=== PATIENT | female | born 1940 | race Caucasian/White ===

== ENCOUNTER → 2017-03-14 | Outpatient (CLI) | payer MEDICARE, BC ==
--- NOTE | 2017-03-14 15:59 | BD ---
EXAMINATION TYPE: MG DEXA axial skeleton. DATE OF EXAM: 03/14/2017 COMPARISON: NONE CLINICAL HISTORY: 76-year-old female osteopenia Height: 61.5 Weight: 205.3 FRAX RISK QUESTIONS: Alcohol (3 or more units per day): NO Family History (Parent hip fracture): NO Glucocorticoids (More than 3mos): NO (Ex: prednisone, prednisolone, methylprednisolone, dexamethasone, and hydrocortisone). History of Fracture in Adulthood: NO Secondary Osteoporosis: 1. Type 1 Diabetes: NO 2. Hyperthyroidism: NO 3. Menopause before 45: YES 4. Malnutrition: NO 5. Chronic liver disease: NO Rheumatoid Arthritis: NO Current Tobacco Use: NO RISK FACTORS HISTORY OF: Hip Fracture (Right/Left): NO Spine Fracture: NO History of Wrist Fracture: NO Surgery to Spine/Hip(right/left)/Wrist (right/left): NO Family History of Osteoporosis: YES Active: NO Diet low in dairy products/other sources of calcium: NO Postmenopausal woman: AGE 47 Lost more than 2 inches in height since high school: NO Frequent falls: NO Poor Health: NO Hyperparathyroidism: NO Adrenal Insufficiency: NO MEDICATIONS: SCANNED INTO PACS Thyroid Medications: LEVOTHYROXINE Additional History: EXAM MEASUREMENTS: Bone mineral densitometry was performed using the [employer]. Bone mineral density as measured about the Lumbar spine is: ----- L1-L4(G/cm2): 1.097 T Score Values are as follows: ----- L2: -0.7 ----- L3: -0.6 ----- L4: -1.0 ----- L1-L4: -0.7 Bone mineral density BASELINE Bone mineral density about the R hip (g/cm2): 0.931 Bone mineral density about the L hip (g/cm2): 0.996 T Score values are as follows: -----R Neck: -0.8 -----L Neck: -0.3 -----R Total: 0.2 -----L Total: 0.3 Bone mineral density BASELINE IMPRESSION: Normal (Values between +1 and -1 indicate normal bone mass). Consider repeating this study in 5 year s or sooner if there is some new clinical indication. NOTE: T-SCORE=SD OF THE YOUNG ADULT MEAN.
== END | disposition home or self-care (01) ==
LOC: RADBDWWP 08:10
PROVIDERS: ATTEND Family Medicine
DX: Z13.820 Encounter for screening for osteoporosis (principal)
CPT/HCPCS: 77080

== ENCOUNTER → 2017-07-09 | Outpatient (CLI) | payer MEDICARE, BC ==
--- NOTE | 2017-07-09 14:37 | XR ---
EXAMINATION TYPE: XR chest 2V DATE OF EXAM: 07/09/2017 COMPARISON: NONE HISTORY: Asthma and COPD TECHNIQUE: Frontal and lateral views of the chest are obtained. FINDINGS: There is no focal air space opacity, pleural effusion, or pneumothorax seen. The cardiac silhouette size is within normal limits. Hyperinflation of the lungs be indicative of COPD. There is blunting of the right ankle, eventration of the hemidiaphragm is noted. There is a spinal curvature. The osseous structures are intact. IMPRESSION: No acute cardiopulmonary process.
== END | disposition home or self-care (01) ==
LOC: RADXRMAIN 11:28
PROVIDERS: ATTEND Allergy & Immunology Allergy
DX: J44.9 Chronic obstructive pulmonary disease, unspecified (principal)
CPT/HCPCS: 71020; 82103

== ENCOUNTER → 2017-07-15 | Outpatient (CLI) | payer MEDICARE, BC ==
--- NOTE | 2017-07-15 14:04 | MM ---
Reason for exam: additional evaluation requested from prior study. Last mammogram was performed 1 year and 1 month ago. History: Patient is postmenopausal and history of other cancer. Family history of breast cancer in daughter at age 30. Benign left mammotome panel of the left breast, March 09, 2013. Benign excisional biopsy of the right breast, 2001. Took hormonal contraceptives for 10 years. Took estrogen for 15 years. Physical Findings: Nurse did not find any significant physical abnormalities on exam. MG 3D Diag Mammo W/Cad DARA Bilateral CC and MLO view(s) were taken. Prior study comparison: June 05, 2016, bilateral MG 3d screening mammo w/cad. April 26, 2015, bilateral MG diagnostic mammo w CAD DARA. There are scattered fibroglandular densities. Finding: There are typically benign dystrophic, round, linear, grouped and diffuse/scattered calcifications in both breasts. Previous mammotome biopsy in the left breast. There is a chronic nodularity bilaterally. There is no discrete abnormality. These results were verbally communicated with the patient and result sheet given to the patient on 07/15/17. ASSESSMENT: Benign, BI-RAD 2 RECOMMENDATION: Routine screening mammogram of both breasts in 1 year.
== END | disposition home or self-care (01) ==
LOC: RADMAMWWP 13:07
PROVIDERS: ATTEND Family Medicine
DX: R92.8 Other abnormal and inconclusive findings on diagnostic imaging of breast (principal)
CPT/HCPCS: G0204; G0279

== ENCOUNTER → 2018-04-23 | Outpatient (CLI) | payer MEDICARE, BC ==
--- NOTE | 2018-04-23 17:57 | CONS ---
CONSULTATION DATE OF SERVICE: 04/23/2018 77-year-old lady has been evaluated in Sleep Center for obstructive sleep apnea- hypopnea syndrome. HISTORY OF PRESENT ILLNESS/SLEEP-WAKE EVALUATION: Patient has been diagnosed with obstructive sleep apnea in around 2002 at [facility] [place] in [place]. Since that time, she is on treatment with CPAP. She never repeat sleep study since that time, although she has significantly changed her weight down from about at least 230 pounds to 187 pounds. The patient continued to use her equipment every night but recently started to feel that she has more awakenings presently than before. She wakes up about 3 times and once, has nocturia. Her sleep schedule from about midnight until 7:30 or 8:00 a.m. No problem with falling asleep, although she has TV set in the bedroom. No history of hypnagogic hallucinations, sleep paralysis or cataplexy. [place] Sleepiness Scale is 4. PAST MEDICAL HISTORY: Positive for hypertension, cardiac arrhythmia, hypothyroidism, asthma. PAST SURGICAL HISTORY: Total hysterectomy, tonsillectomy, adenoidectomy, surgical treatment of squamous cell carcinoma of the skin, diabetes mellitus type 2. MEDICATIONS: Diltiazem, spironolactone, hydrochlorothiazide levothyroxine, Crestor, Singulair, Farxiga, Dulera inhaler, Ventolin, vitamin supplement, calcium supplement, ibuprofen. SOCIAL HISTORY: Negative for smoking or using alcohol. FAMILY HISTORY: Hypertension, stroke, heart problems, arthritis, asthma, cancer, bronchitis, diabetes, acid reflux. REVIEW OF SYSTEMS: Awakenings from sleep. PHYSICAL EXAM: GENERAL lady without distress. VITAL SIGNS BP 104/72, HR 78, RR 16, height 5 feet 3/4 inch, weight 187.6, BMI 35.8, temperature 98.1, oxygen saturation on room air 93%. HEENT PERRLA, EOMI, evaluation of oropharynx showed extremely low position of soft palate. Mallampati IV. Retrognathia 5 mm, high position of soft palate, small low jaw. NECK Supple, no JVD. Thyroid is not palpable. LUNGS Clear to percussion and to auscultation. Good air exchange. No wheezing or rhonchi. HEART S1, S2 regular. No murmurs, gallops, or rubs. ABDOMEN Obese. Soft and nontender. Bowel sounds are present. No organomegaly appreciated. EXTREMITIES No clubbing or cyanosis. AGILE PROJECT MANAGER Awake, alert, and oriented X3. Cranial nerves 2 to 7 intact. There is no fasciculation or atrophy. noted. No focal deficits observed. IMPRESSION: 1. Obstructive sleep apnea-hypopnea syndrome for 15 years. The patient continued to have treatment with his CPAP. Recently developed awakenings from sleep while on CPAP, extremely low position of soft palate, Mallampati IV, significant restriction of nasal breathing bilaterally, obstructive sleep apnea-hypopnea syndrome. 2. Obesity, BMI of 35.8. 3. Nasal septum deviation, restriction of nasal breathing. 4. History of cardiac arrhythmia. 5. History of hypertension. 6. Hypothyroidism. 7. Asthma. 8. Status post total hysterectomy. 9. Status post tonsillectomy and adenoidectomy. 10.Diabetes mellitus type 2. 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 PLAN: 1. Repeat CPAP titration for evaluation of effective CPAP pressure at the present time. Patient lost about 50 pounds of weight since previous titration which was done 15 years ago and she developed awakenings from sleep recently. 2. Watching and losing weight. 3. Sleep hygiene with regular time in bed for at least 8 hours. 4. Prescription for all necessary CPAP supplies. 5. The patient's CPAP unit will be replaced. 6. No driving if feeling sleepiness. Thank you very much for referring this patient for consultation. Sincerely, Germain Wasserman MD, PhD, FAASM Diplomat of [place] [employer] [place] [employer] Artillery Specialist of [facility] [place] MMODL / IJN: [id number] /
== END | disposition home or self-care (01) ==
LOC: SLEEP 13:46
PROVIDERS: ATTEND Internal Medicine
DX: G47.33 Obstructive sleep apnea (adult) (pediatric) (principal); E66.9 Obesity, unspecified; J34.2 Deviated nasal septum; I49.9 Cardiac arrhythmia, unspecified; I10 Essential (primary) hypertension; E03.9 Hypothyroidism, unspecified; J45.909 Unspecified asthma, uncomplicated; E11.9 Type 2 diabetes mellitus without complications; Z90.89 Acquired absence of other organs; Z90.710 Acquired absence of both cervix and uterus; Z68.35 Body mass index [BMI] 35.0-35.9, adult; Z85.820 Personal history of malignant melanoma of skin; Z99.89 Dependence on other enabling machines and devices; Z79.899 Other long term (current) drug therapy; Z79.1 Long term (current) use of non-steroidal anti-inflammatories (NSAID)
CPT/HCPCS: 99211

== ENCOUNTER → 2018-07-21 | Outpatient (CLI) | payer MEDICARE, BC ==
--- NOTE | 2018-07-27 10:11 | MM ---
Reason for exam: screening (asymptomatic). Last mammogram was performed 1 year ago. History: Patient is postmenopausal and history of other cancer. Family history of breast cancer in daughter at age 30. Benign left mammotome panel of the left breast, March 09, 2013. Benign excisional biopsy of the right breast, 2001. Took hormonal contraceptives for 10 years. Took estrogen for 15 years. Physical Findings: A clinical breast exam by your physician is recommended on an annual basis and results should be correlated with mammographic findings. MG 3D Screening Mammo W/Cad Bilateral CC and MLO view(s) were taken. Prior study comparison: July 15, 2017, bilateral MG 3d diag mammo w/cad DARA. June 05, 2016, bilateral MG 3d screening mammo w/cad. There are scattered fibroglandular densities. Previous mammotome biopsy in the left breast. There is chronic nodularity bilaterally. Stable bilateral areas of grouped calcifications. No significant changes when compared with prior studies. ASSESSMENT: Benign, BI-RAD 2 RECOMMENDATION: Routine screening mammogram of both breasts in 1 year.
== END | disposition home or self-care (01) ==
LOC: RADMAMWWP 11:06
PROVIDERS: ATTEND Family Medicine
DX: Z12.31 Encounter for screening mammogram for malignant neoplasm of breast (principal)
CPT/HCPCS: 77063; 77067

== ENCOUNTER → 2018-10-15 | Outpatient (CLI) | payer MEDICARE, BC ==
--- NOTE | 2018-10-15 17:44 | PN ---
PROGRESS NOTE DATE OF SERVICE: 10/15/2018 This patient is a 77-year-old lady who has been followed in Sleep Center for treatment of obstructive sleep apnea-hypopnea syndrome. Recently patient had a CPAP titration which went very well. She had no abnormal respiratory events during titration. After that, I prescribed for the patient an automatic machine with a range of pressure from 5 to 10 cm of water. Today is her first visit after she received her CPAP unit. The patient is able to use her CPAP equipment every night for the whole night without any significant problem except recently some problem with humidification. No snoring with the machine. [place] Sleepiness Scale is 4, which is normal. I checked her CPAP unit. Usage is 100% of the nights for more than 4 hours. Average usage is 7.4 hours. Leak is 19 L/minute, which is borderline. With a pressure of 5 to 10 cm of water, average pressure is 10 cm of water. Apnea-hypopnea index reading is only 0.6, which is absolutely normal. Heating is on auto regimen. MEDICATIONS: 1. Diltiazem. 2. Spironolactone. 3. Hydrochlorothiazide. 4. Levothyroxine. 5. Crestor. 6. Singulair. 7. Dulera. 8. Ventolin. 9. Calcium supplement. 10.Vitamins. 11.Ibuprofen. 12.Glipizide. PHYSICAL EXAMINATION: GENERAL: A pleasant patient in no distress. VITAL SIGNS: BP 145/76, HR 73, RR 18, weight 200.6, temperature 97.7, oxygen saturation at room air 93%. HEENT: PERRLA, EOMI. Evaluation of oropharynx showed tongue protrudes midline. Low position of soft palate. Mallampati IV. NECK: Supple. No JVD. Thyroid is not palpable. LUNGS: Clear to percussion and to auscultation. Good air exchange. No wheezing or rhonchi. HEART: S1, S2 regular. No murmurs, gallops or rubs. ABDOMEN: Obese. EXTREMITIES: No clubbing or cyanosis. MID TEACHER: Awake, alert, and oriented X3. Cranial nerves 2 to 7 intact. There is no fasciculation or atrophy. noted. No focal deficits observed. IMPRESSION: 1. Obstructive sleep apnea-hypopnea syndrome. Patient demonstrated 100% compliance with treatment, benefitting from treatment. 2. Obesity. 3. Hypertension. 4. Hypothyroidism. 5. Asthma. 6. Diabetes mellitus. 7. History of nasal septum deviation. PLAN: 1. Patient will continue to use CPAP equipment every night with the same regimen. 2. Losing weight. 3. Sleep hygiene with regular time in bed for at least 8 hours. 4. No driving if feeling any sleepiness. Thank you very much for allowing me to participate in the management of your patient. Sincerely, Germain Wasserman MD, PhD, FAASM Diplomat of [place] [employer] [place] [employer] [place] Chief [facility] [place] MMODL / IJN: [id number] /
== END ==
LOC: SLEEP 14:53
PROVIDERS: ATTEND Internal Medicine
DX: G47.33 Obstructive sleep apnea (adult) (pediatric) (principal); E66.9 Obesity, unspecified; I10 Essential (primary) hypertension; E03.9 Hypothyroidism, unspecified; J45.909 Unspecified asthma, uncomplicated; E11.9 Type 2 diabetes mellitus without complications; Z87.39 Personal history of other diseases of the musculoskeletal system and connective tissue; Z99.89 Dependence on other enabling machines and devices; Z79.899 Other long term (current) drug therapy; Z79.1 Long term (current) use of non-steroidal anti-inflammatories (NSAID); Z79.84 Long term (current) use of oral hypoglycemic drugs

== ENCOUNTER → 2019-09-21 | Outpatient (CLI) | payer MEDICARE, BC ==
--- NOTE | 2019-09-22 11:12 | MM ---
Reason for exam: screening (asymptomatic). Last mammogram was performed 1 year and 2 months ago. History: Patient is postmenopausal and history of other cancer. Family history of breast cancer in daughter at age 30. Benign left mammotome panel of the left breast, March 09, 2013. Benign excisional biopsy of the right breast, 2001. Took hormonal contraceptives for 10 years. Took estrogen for 15 years. Physical Findings: A clinical breast exam by your physician is recommended on an annual basis and results should be correlated with mammographic findings. MG 3D Screening Mammo W/Cad Bilateral CC and MLO view(s) were taken. Prior study comparison: July 21, 2018, bilateral MG 3d screening mammo w/cad. July 15, 2017, bilateral MG 3d diag mammo w/cad DARA. The breast tissue is heterogeneously dense. This may lower the sensitivity of mammography. Finding: There is a 5 mm equal density (isodense), oval mass in the subareolar position of the right breast. There are benign appearing calcifications. Previous mammotome biopsy in the left breast. There is a chronic nodularity bilaterally. There are grouped calcifications left upper inner quadrant. ASSESSMENT: Incomplete: need additional imaging evaluation, BI-RAD 0 RECOMMENDATION: Special view mammogram of both breasts. If lesion persists on supplemental views, image directed ultrasound is recommended. [facility] will attempt to contact patient to return for supplemental views and ultrasound if indicated.
== END | disposition home or self-care (01) ==
LOC: RADMAMWWP 13:31
PROVIDERS: ATTEND Family Medicine
DX: Z12.31 Encounter for screening mammogram for malignant neoplasm of breast (principal)
CPT/HCPCS: 77063; 77067

== ENCOUNTER → 2019-10-04 | Outpatient (CLI) | payer MEDICARE, BC ==
--- NOTE | 2019-10-04 15:02 | MM ---
Reason for exam: additional evaluation requested from abnormal screening. Last mammogram was performed less than 1 month ago. History: Patient is postmenopausal and history of other cancer. Family history of breast cancer in daughter at age 30. Benign left mammotome panel of the left breast, March 09, 2013. Benign excisional biopsy of the right breast, 2001. Took hormonal contraceptives for 10 years. Took estrogen for 15 years. Physical Findings: Nurse did not find any significant physical abnormalities on exam. MG 3D Work Up W/Cad DARA Bilateral ML view(s) were taken. Spot compression CC and spot compression MLO view(s) were taken of the right breast. CC with magnification and ML with magnification view(s) were taken of the left breast. Prior study comparison: September 21, 2019, bilateral MG 3d screening mammo w/cad. July 21, 2018, bilateral MG 3d screening mammo w/cad. The breast tissue is heterogeneously dense. This may lower the sensitivity of mammography. There is a persistent 4mm right upper inner quadrant mass 3-5cm from nipple, slightly increased in size from the priors, ultrasound will be performed. There is a 4mm group of left upper inner quadrant calcifications, slightly increased from priors however multiple other similar appearing coarse heterogenous calcifications are also seen on the left. These results were verbally communicated with the patient and result sheet given to the patient on 10/04/19. ASSESSMENT: Incomplete: need additional imaging evaluation, BI-RAD 0 RECOMMENDATION: Ultrasound of the right breast. (upper inner quadrant)
--- NOTE | 2019-10-04 15:04 | USB ---
Reason for exam: additional evaluation requested from abnormal screening. History: Patient is postmenopausal and history of other cancer. Family history of breast cancer in daughter at age 30. Benign left mammotome panel of the left breast, March 09, 2013. Benign excisional biopsy of the right breast, 2001. Took hormonal contraceptives for 10 years. Took estrogen for 15 years. US Breast Workup Limited RT Right limited breast ultrasound including focal area of concern, retroareolar and axilla demonstrates a 5 x 4mm lobular, cystic lesion at 1 o'clock, correlates with mammographic finding, a 12mm lymph node at the axilla and a 11mm lymph node at the axilla, maintain fatty edith. These results were verbally communicated with the patient and result sheet given to the patient on 10/04/19. ASSESSMENT: Benign, BI-RAD 2 RECOMMENDATION: Return to routine screening mammogram schedule for both breasts.
== END | disposition home or self-care (01) ==
LOC: RADMAMWWP 13:29
PROVIDERS: ATTEND Family Medicine
DX: R92.8 Other abnormal and inconclusive findings on diagnostic imaging of breast (principal)
CPT/HCPCS: 77066; 76642; G0279; 77062

== ENCOUNTER → 2020-03-02 | Outpatient (CLI) | payer MEDICARE, BC ==
--- NOTE | 2020-03-03 07:57 | SFUN ---
SLEEP CENTER FOLLOW UP NOTE DATE OF SERVICE: 03/02/2020 HISTORY OF PRESENT ILLNESS: This is a 79-year-old lady who has been followed in the Sleep Center for treatment of obstructive sleep apnea-hypopnea syndrome. The patient successfully continues to use her CPAP equipment every night for the whole night. No snoring with the machine. No problem with the mask. I checked the CPAP unit. CPAP pressure in the range from 5-10 cm of water. The patient is using it 30/30 nights for more than 4 hours with average usage 6.9 hours per night. Leak is up to 20 L/minute which is acceptable. Apnea-hypopnea index 0.6, which is absolutely normal. Sometimes patient feels dryness in her mouth and we discussed a few options to change humidity level. MEDICATIONS: Symbicort, Ventolin, Januvia, spironolactone, levothyroxine, lisinopril, diltiazem, rosuvastatin, montelukast, Tylenol. PHYSICAL EXAM: GENERAL: lady without distress. VITAL SIGNS: BP 124/73, HR 80, RR 16, height 5 feet 1 inch, weight 207, body mass index 39.1, temperature 98.6, oxygen saturation at room air 94%. HEENT: PERRLA, EOMI, evaluation of oropharynx showed extremely low position of soft palate, Mallampati 4. NECK: Supple, no JVD. Thyroid is not palpable. LUNGS: Clear to percussion and to auscultation. Good air exchange. No wheezing or rhonchi. HEART: S1, S2 regular. No murmurs, gallops, or rubs. ABDOMEN: Soft and nontender. Bowel sounds are present. No organomegaly appreciated. EXTREMITIES: No clubbing or cyanosis. THREADING MACHINE TENDER: Awake, alert, and oriented X3. Cranial nerves 2 to 7 intact. There is no fasciculation or atrophy. noted. No focal deficits observed. IMPRESSION: 1. Obstructive sleep apnea-hypopnea syndrome. Patient demonstrated 100% compliance with treatment, benefitting from treatment. 2. Obesity. 3. Hypothyroidism. 4. Asthma. 5. Diabetes mellitus. 6. Nasal septum deviation. PLAN: 1. Patient will continue to use her CPAP equipment every night for the whole night. 2. Watching and losing weight. 3. Sleep hygiene with regular time in bed for at least 8 hours. 4. No driving if feeling any sleepiness. 5. Use chinstrap to prevent dryness in the nose. Thank you very much for allowing me to participate in the management of your patient. MMODL / IJN: [id number] /
== END | disposition home or self-care (01) ==
LOC: SLEEP 15:28
PROVIDERS: ATTEND Internal Medicine
DX: G47.33 Obstructive sleep apnea (adult) (pediatric) (principal); Z53.8 Procedure and treatment not carried out for other reasons

== ENCOUNTER → 2020-09-07 | Outpatient (CLI) | payer MEDICARE, BC ==
--- NOTE | 2020-09-07 20:31 | SFUN ---
SLEEP CENTER FOLLOW UP NOTE DATE OF SERVICE: 09/07/2020 79-year-old lady has been followed in Sleep Center for treatment of obstructive sleep apnea-hypopnea syndrome. Patient continued to use her CPAP equipment every night for the whole night. No significant problems with the mask fitting, pressure humidification. Patient received her new CPAP unit recently. I checked her CPAP machine. Range of the pressure 5-10, average pressure 10 cm of water. Usage is 30 out of 30 nights more than 4 hours with average 7.4 hours per night. Leak is 26 L/minute which is slightly high. At the same time, apnea-hypopnea index only 1.0, which is totally normal. [place] Sleepiness Scale today is 4. MEDICATIONS: Symbicort 2 puffs twice a day. Ventolin 2 puffs as needed, Januvia 50 mg once a day. Spironolactone, hydrochlorothiazide 25 mg, 2 tablets once a day. Levothyroxine 112 mcg once a day, lisinopril 2.5 mg once a day, Rosuvastatin 10 mg once a day. Montelukast 10 mg once a day. PHYSICAL EXAM: Patient in no distress. BP 116/74, HR 77, RR 15, height 5 feet 7.5 inches, weight 206.2 pounds. BMI 39.5, temperature 97.9. Oxygen saturation at room air 93%. Oropharynx extremely low position of soft palate. Mallampati 4. NECK: Supple, no JVD. Thyroid is not palpable. LUNGS: Clear to percussion and to auscultation. Good air exchange. No wheezing or rhonchi. HEART: S1, S2 regular. No murmurs, gallops, or rubs. ABDOMEN: Obese. Soft and nontender. Bowel sounds are present. No organomegaly appreciated. EXTREMITIES: No clubbing or cyanosis. ANALYTICAL SCIENCES DIRECTOR: Awake, alert, and oriented X3. Cranial nerves 2 to 7 intact. There is no fasciculation or atrophy. noted. No focal deficits observed. IMPRESSION: 1. Obstructive sleep apnea-hypopnea syndrome. Patient demonstrated 100% compliance with treatment benefitting from treatment. 2. Obesity. 3. Hypothyroidism. 4. Asthma. 5. Diabetes mellitus. 6. Nasal septum deviation. 7. History of cardiac arrhythmia in the past. PLAN: 1. Prescription for all necessary CPAP supplies, including mask, tube, filters. 2. Patient will continue to use PAP equipment every night for the whole night. 3. Sleep hygiene with regular time in bed for at least 7-1/2 to 8 hours. 4. Precautions related to driving. No driving if feeling sleepiness. 5. I will maintain all necessary prescription for PAP supplies including mask, tube, filters. 6. Watching weight. 7. No driving if feeling sleepiness. 8. Follow-up visit in 6 months or earlier if patient has any problems. Thank you very much for allowing me to participate in management of your patient. Sincerely, Germain Wasserman MD, PhD, FAASM Diplomat of [place] Board of Medical Specialties [employer] [place] Board of Internal Medicine [facility]able [facility] [place] MMODL / KIMBERLYN: [id number] /
== END | disposition home or self-care (01) ==
LOC: SLEEP 13:56
PROVIDERS: ATTEND Internal Medicine
DX: G47.33 Obstructive sleep apnea (adult) (pediatric) (principal); Z99.89 Dependence on other enabling machines and devices; Z79.891 Long term (current) use of opiate analgesic; Z79.899 Other long term (current) drug therapy; E66.9 Obesity, unspecified; E03.9 Hypothyroidism, unspecified; J45.909 Unspecified asthma, uncomplicated; E11.9 Type 2 diabetes mellitus without complications; J34.2 Deviated nasal septum; Z86.79 Personal history of other diseases of the circulatory system

== ENCOUNTER → 2021-03-22 | Outpatient (CLI) | payer MEDICARE, BC ==
--- NOTE | 2021-03-22 20:49 | SFUN ---
SLEEP CENTER FOLLOW UP NOTE DATE OF SERVICE: 03/22/2021 80 -year-old lady has been followed in the Sleep Center for treatment of obstructive sleep apnea-hypopnea syndrome. The patient continues to use her CPAP equipment. No snoring during sleep according to her . No problems related to mask fitting, pressure, humidification, she received all of her CPAP supplies in time. The only issue is that her head gear became a little bit loose and then she changed it to every 6 months. I checked her CPAP unit, usage of the pressure 5-10, average pressure 10 cm of water. Usage is 100% of nights, average 7.1 hours per night. Leak is 30 L/minutes which is slightly increased. Apnea-hypopnea index is normal at 0.9. [place] Sleepiness Scale today is 2 which is perfect. MEDICATIONS: Symbicort twice a day and Ventolin, Januvia 100 mg once a day, spironolactone, hydrochlorothiazide 25-25 mg twice a day, levothyroxine 112 mcg once a day. Lisinopril 2.5 mg once a day, Rosuvastatin 10 mg once a day. Montelukast 10 once a day. PHYSICAL EXAMINATION: GENERAL: Patient in no distress. BP 114/53, HR 76, RR 15, height 5 feet 1 inch, weight 204, temperature 98.1. Oxygen saturation on room air, 95%. Oropharynx extremely low position of soft palate. Mallampati 4. NECK: Supple, no JVD. Thyroid is not palpable. LUNGS: Clear to percussion and to auscultation. Good air exchange. No wheezing or rhonchi. HEART: S1, S2 regular. No murmurs, gallops, or rubs. ABDOMEN: Obese. Soft and nontender. Bowel sounds are present. No organomegaly appreciated. EXTREMITIES: No clubbing or cyanosis. MAINFRAME PROGRAMMER ANALYST: Awake, alert, and oriented X3. Cranial nerves 2 to 7 intact. There is no fasciculation or atrophy. noted. No focal deficits observed. IMPRESSION: 1. Obstructive sleep apnea-hypopnea syndrome. Patient demonstrated 100% compliance with treatment benefitting from treatment. 2. Obesity. 3. Hypothyroidism. 4. Asthma. 5. Diabetes mellitus. 6. Nasal septum deviation. 7. History of cardiac arrhythmia in the past. PLAN: 1. Patient will continue to use PAP equipment every night for the whole night. 2. Sleep hygiene with regular time in bed for at least 7-1/2 to 8 hours. 3. Precautions related to driving. No driving if feeling sleepiness. 4. I will maintain all necessary prescription for PAP supplies including mask, tube, filters. 5. Watching weight. 6. Follow-up visit in 6 months or earlier if patient has any problems. Thank you very much for allowing me to participate in management of your patient. Sincerely, Germain Wasserman MD, PhD, FAASM Diplomat of [place] [employer] Sleep Medicine Board of [place] [employer] of Internal Medicine Low Pressure Kettle Operator of [facility] [place] MMODL / IJN: [id number] /
== END ==
LOC: SLEEP 14:01
PROVIDERS: ATTEND Internal Medicine
DX: G47.33 Obstructive sleep apnea (adult) (pediatric) (principal); E66.9 Obesity, unspecified; E03.9 Hypothyroidism, unspecified; J45.909 Unspecified asthma, uncomplicated; E11.9 Type 2 diabetes mellitus without complications; J34.2 Deviated nasal septum; Z86.79 Personal history of other diseases of the circulatory system; Z79.51 Long term (current) use of inhaled steroids; Z79.890 Hormone replacement therapy; Z79.84 Long term (current) use of oral hypoglycemic drugs; Z79.899 Other long term (current) drug therapy; Z88.1 Allergy status to other antibiotic agents

== ENCOUNTER → 2021-09-04 | Outpatient (CLI) | payer MEDICARE, BC ==
--- NOTE | 2021-09-06 09:53 | MM ---
Reason for exam: screening (asymptomatic). Last mammogram was performed 1 year and 11 months ago. History: Patient is postmenopausal and history of other cancer. Family history of breast cancer in daughter at age 30. Benign left mammotome panel of the left breast, March 09, 2013. Benign excisional biopsy of the right breast, 2001. Took hormonal contraceptives for 10 years. Took estrogen for 15 years. Physical Findings: A clinical breast exam by your physician is recommended on an annual basis and results should be correlated with mammographic findings. MG 3D Screening Mammo W/Cad Bilateral CC and MLO view(s) were taken. Prior study comparison: October 04, 2019, bilateral MG 3d work up w/cad [facility]. September 21, 2019, bilateral MG 3d screening mammo w/cad. There are scattered fibroglandular densities. Previous mammotome biopsy in the left breast. There is chronic nodularity bilaterally. 1 o'clock central anterior nodularity now 9mm versus 6mm previously, likely a cyst, 6 month follow up recommended. Slight increase in course calcifications medial left breast. 6 month follow up recommended. Some fluctuating lateral nodularity left breast as well. ASSESSMENT: Probably benign, BI-RAD 3 RECOMMENDATION: Follow-up diagnostic mammogram of both breasts in 6 months.
== END | disposition home or self-care (01) ==
LOC: RADMAMWWP 11:49
PROVIDERS: ATTEND Family Medicine
DX: Z12.31 Encounter for screening mammogram for malignant neoplasm of breast (principal); Z78.0 Asymptomatic menopausal state; Z80.3 Family history of malignant neoplasm of breast
CPT/HCPCS: 77063; 77067

== ENCOUNTER → 2021-09-20 | Outpatient (CLI) | payer MEDICARE, BC ==
--- NOTE | 2021-09-20 15:41 | SFUN ---
SLEEP CENTER FOLLOW UP NOTE DATE OF SERVICE: 09/20/2021 This 80-year-old lady has been followed in Sleep Center for treatment of obstructive sleep apnea-hypopnea syndrome. Patient continues to use her CPAP equipment every night, getting her supplies on time. [place] Sleepiness Scale today is 3. I checked her CPAP unit. Range of the pressure is 5 to 10 cm, average pressure 10 cm of water. Usage is 30/30 nights, average 7.3 hours per night. Leak is 25 L/minute, which is acceptable. Apnea-hypopnea index is 0.9, which is normal. MEDICATIONS: 1. Symbicort 2 puffs twice a day. 2. Ventolin up to 4 times a day. 3. Januvia 100 mg once a day. 4. Spironolactone/hydrochlorothiazide 25/25 mg 2 tablets once a day. 5. Levothyroxine 112 mcg one tablet once a day. 6. Lisinopril 2.5 mg once a day. 7. Rosuvastatin 10 mg once a day. 8. Montelukast 10 mg once a day. PHYSICAL EXAMINATION: GENERAL: Pleasant patient in no distress. VITAL SIGNS: BP 122/77, HR 81, RR 18, weight 204.4, which is about the same as 6 months ago. Temperature 97.0, oxygen saturation at room air 94%. HEENT: PERRLA, EOMI, evaluation of oropharynx showed tongue protrudes midline. Extremely low position of soft palate; Mallampati IV. NECK: Supple, no JVD. Thyroid is not palpable. LUNGS: Clear to percussion and to auscultation. Good air exchange. No wheezing or rhonchi. HEART: S1, S2 regular. No murmurs, gallops, or rubs. ABDOMEN: Obese. EXTREMITIES: No clubbing or cyanosis. SCREEN HANDLER: Awake, alert, and oriented X3. Cranial nerves 2 to 7 intact. There is no fasciculation or atrophy. noted. No focal deficits observed. IMPRESSION: 1. Obstructive sleep apnea-hypopnea syndrome. Patient demonstrated great compliance with treatment, benefitting from treatment. Normal respiration on CPAP. 2. Obesity. 3. Asthma. 4. Hypothyroidism. 5. Diabetes mellitus. 6. History of cardiac arrhythmia in the past. 7. Nasal septum deviation. PLAN: 1. Patient will continue to use PAP equipment every night for the whole night. 2. Sleep hygiene with regular time in bed for at least 7-1/2 to 8 hours. 3. Precautions related to driving. No driving if feeling sleepiness. 4. I will maintain all necessary prescription for PAP supplies including mask, tube, filters. 5. Watching weight. 6. Follow-up visit in 6 months or earlier if patient has any problems. Thank you very much for allowing me to participate in the management of your patient. Sincerely, Germain Wasserman MD, PhD, FAASM Diplomat of [place] [employer] Sleep Medicine Board of [place] [employer] Remittance Clerk of [facility] Kyle MMODL / KIMBERLYN: [id number] /
== END ==
LOC: SLEEP 13:37
PROVIDERS: ATTEND Internal Medicine
DX: G47.33 Obstructive sleep apnea (adult) (pediatric) (principal); E66.9 Obesity, unspecified; J45.909 Unspecified asthma, uncomplicated; E03.9 Hypothyroidism, unspecified; E11.9 Type 2 diabetes mellitus without complications; J34.2 Deviated nasal septum; Z86.79 Personal history of other diseases of the circulatory system; Z79.890 Hormone replacement therapy; Z79.84 Long term (current) use of oral hypoglycemic drugs; Z79.51 Long term (current) use of inhaled steroids; Z79.899 Other long term (current) drug therapy

== ENCOUNTER → 2022-07-24 | Outpatient (CLI) | payer MEDICARE, BC ==
--- NOTE | 2022-07-24 11:17 | MM ---
Reason for Exam: Follow-up at short interval from prior study. Last screening mammogram was performed 10 month(s) ago. Patient History: Menarche at age 14. First Full-Term at age 27. Left ovary removed at age 51. Right ovary removed at age 51. Hysterectomy at age 51. Postmenopausal. Other cancer. Patient used Estrogen for 15 years. Patient used Hormonal Contraceptives for 10 years. 2001, Benign Excisional Biopsy on the right side. 03/09/2013, Benign Core Biopsy on the left side. Daughter had breast cancer, age 30. Daughter had breast cancer, age 44. Risk Values: Cher 5 year model risk: 5.0%. NCI Lifetime model risk: 8.2%. Tissue Density: The breast tissue is heterogeneously dense. This may lower the sensitivity of mammography. Findings: Analyzed By CAD. There is chronic nodularity seen bilaterally. Right-sided nodule is unchanged in size and measures 9 mm versus 9 mm previously. Benign calcifications persist bilaterally. No suspicious clusters are evident. Overall Assessment: Probably benign, BI-RAD 3 Management: Diagnostic Mammogram of both breasts in 6 months. A clinical breast exam by your physician is recommended on an annual basis and results should be correlated with mammographic findings. This exam should not preclude additional follow-up of suspicious palpable abnormalities. Results were given to the patient verbally at the time of exam. Electronically signed and approved by: Tobias Collins M.D. Radiologis
== END | disposition home or self-care (01) ==
LOC: RADMAMWWP 10:51
PROVIDERS: ATTEND Family Medicine
DX: R92.8 Other abnormal and inconclusive findings on diagnostic imaging of breast (principal); Z78.0 Asymptomatic menopausal state; Z80.3 Family history of malignant neoplasm of breast; Z90.721 Acquired absence of ovaries, unilateral
CPT/HCPCS: 77066; G0279; 77062

== ENCOUNTER → 2022-08-28 | Outpatient (CLI) | payer MEDICARE, BC ==
--- NOTE | 2022-08-28 15:15 | P.PN ---
Subjective DATE: 08/28/2022 FOLLOW UP VISIT. Patient with obstructive sleep apnea hypopnea syndrome return to sleep center for follow-up visit. Information from previous visit have been reviewed. Patient is using PAP equipment every night for the whole night, getting PAP supplies in time. The patient does not have significant problems with the mask, PAP unit and humidification. [place] sleepiness scale is 4, which is normal. I checked information from PAP unit. PAP unit pressure 5-10, average 10 cm H2O. Usage is 100 % for more then 4 hours, average 7.1 hours per night. Leak is 23 l/m, which is in acceptable range. Apnea Hypopnea Index is 1.4, which is normal. MEDICATIONS:1. Albuterol 2. Spironolactone-hydrochlorothiazide 25/25 mg 2 tablets once a day 3. Levothyroxine 112 g once a day 4. Lisinopril 2.5 mg once a day 5. Rosuvastatin 10 mg once a day During physical exam: GENERAL: A pleasant patient without any distress. VITAL SIGNS: BP 121/79, HR 77, RR 16 , weight 201.6, temperature 97.5, oxygen saturation at room air 98 % . HEENT: PERRLA, EOMI.low position of soft palate, Mallapati 4 . NECK: Supple. No JVD. LUNGS: Clear to percussion and to auscultation. Good air exchange. No wheezing or rhonchi. HEART: S1, S2 regular. ABDOMEN: Soft and nontender. Obese EXTREMITIES: No clubbing or cyanosis. ENROLLMENT MANAGEMENT DIRECTOR: Awake, alert, and oriented x3. No focal deficit. Impressions: 1. Obstructive sleep apnea-hypopnea syndrome. Patient demonstrated great compliance with treatment, benefiting from treatment. 2. Obesity. 3. Hypothyroidism. 4. Asthma. 5. Diabetes mellitus. 6. History of cardiac arrhythmia in the past. 7. Nasal septum deviation. Plan: 1. Continue using PAP equipment every night for the whole night. 2. To change air filter at least 1-2 times per month. 3. PAP unit should stay lower then position of the head. 4. Advised patient to remove all remaining water from humidifier canister daily and make it dry after each usage. Refill canister with fresh distilled water before each usage. 5. Sleep hygiene with regular time in bed for at least 8 hours. 6. Precautions related to driving. No driving if feel any sleepiness. 7. I will maintain prescription for PAP supplies including mask, tube, filters. 8. Follow up visit in 6 months or earlier if patient has any problems. 9. Watching and losing weight. Thank you very much for allowing me to participate in the management of your patient. Germain Wasserman MD, PhD, FAASM. Diplomat of [place] Board of Sleep Medicine, Sleep Medicine Board by [place] Board of Internal Medicine Assistant Associate Full Professor of [facility] [place]
== END ==
LOC: SLEEP 13:53
PROVIDERS: ATTEND Internal Medicine
DX: G47.33 Obstructive sleep apnea (adult) (pediatric) (principal); Z99.89 Dependence on other enabling machines and devices; E66.9 Obesity, unspecified; E03.9 Hypothyroidism, unspecified; J45.909 Unspecified asthma, uncomplicated; E11.9 Type 2 diabetes mellitus without complications; Z86.79 Personal history of other diseases of the circulatory system; J34.2 Deviated nasal septum; Z79.890 Hormone replacement therapy; Z79.899 Other long term (current) drug therapy; Z88.0 Allergy status to penicillin
CPT/HCPCS: 99212

== ENCOUNTER → 2023-01-22 | Outpatient (CLI) | payer MEDICARE ==
--- NOTE | 2023-01-22 13:42 | MM ---
Reason for Exam: Follow-up at short interval from prior study. Last screening mammogram was performed 6 month(s) ago. Patient History: Menarche at age 14. First Full-Term at age 27. Left ovary removed at age 51. Right ovary removed at age 51. Hysterectomy at age 51. Postmenopausal. Other cancer. Patient used Estrogen for 15 years. Patient used Hormonal Contraceptives for 10 years. 2001, Benign Excisional Biopsy on the right side. 03/09/2013, Benign Core Biopsy on the left side. Daughter had breast cancer, age 30. Daughter had breast cancer, age 44. Risk Values: Cher 5 year model risk: 4.8%. NCI Lifetime model risk: 7.4%. Prior Study Comparison: 07/02/2010 Screening Mammogram, [facility]. 09/24/2011 Screening Mammogram, [facility]. 01/14/2013 Screening Mammogram, [facility]. 01/18/2013 Screening Mammogram, [facility]. 02/17/2013 Left Diagnostic Ultrasound, [facility]. 11/01/2013 Left Diagnostic Mammogram, [facility]. 04/26/2015 Bilateral Diagnostic Mammogram, [facility] 06/05/2016 Bilateral Screening Mammogram, [facility]. 07/15/2017 Bilateral Diagnostic Mammogram, [facility]. 07/21/2018 Bilateral Screening Mammogram, [facility]. 09/21/2019 Bilateral Screening Mammogram, [facility]. 10/04/2019 Bilateral Diagnostic Mammogram, [facility]. 10/04/2019 Right Diagnostic Ultrasound, [facility]. 09/04/2021 Bilateral Screening Mammogram, [facility]. Tissue Density: There are scattered fibroglandular densities. Findings: Analyzed By CAD. Persistent bilateral calcifications which appear stable. Focal asymmetries bilaterally with nodular changes to the breasts bilaterally are not significantly different given differences in technique. No new suspicious masses, calcifications or distortions. Overall Assessment: Benign, BI-RAD 2 Management: Screening Mammogram of both breasts in 1 year. Results were given to the patient verbally at the time of exam. Patient should continue monthly self-breast exams. A clinical breast exam by your physician is recommended on an annual basis. This exam should not preclude additional follow-up of suspicious palpable abnormalities. Note on Cher scores and lifetime risk: 1. A Cher score greater than 3% is considered moderate risk. If this is the case, consider specialist referral to assess eligibility for a risk reducing agent. 2. If overall lifetime risk for the development of breast cancer is 20% or higher, the patient may qualify for future screening with alternating mammogram and breast MRI. Electronically signed and approved by: Jacobo Caro DO
== END | disposition home or self-care (01) ==
LOC: RADMAMWWP 12:57
PROVIDERS: ATTEND Family Medicine
DX: R92.8 Other abnormal and inconclusive findings on diagnostic imaging of breast (principal); Z78.0 Asymptomatic menopausal state; Z80.3 Family history of malignant neoplasm of breast; Z90.721 Acquired absence of ovaries, unilateral
CPT/HCPCS: 77062; 77066

== ENCOUNTER 2023-08-26 06:59 | Inpatient (IN) | payer MEDICARE ==
[2023-08-26] MEDS ORDERED: ONDANSETRON 4 MG/2 ML VIAL IVP STA (08:16)
[2023-08-26] MEDS ORDERED: SODIUM CHLORIDE 0.9% 500 ML 500 ML IV ONE (08:16)
--- NOTE | 2023-08-26 08:18 | ED ---
Abdominal Pain HPI - General Chief Complaint: Abdominal Pain Stated Complaint: abd pain Time Seen by Provider: 08/26/23 07:52 Source: patient, family, RN notes reviewed Mode of arrival: wheelchair Limitations: no limitations - History of Present Illness Initial Comments: 82-year-old female presents emergency Department chief complaint abdominal pain. Patient states that the pain started last night after eating. She states is in the lower abdomen felt that she did have a bowel movement. She states that there for almost an hour states that she had small bowel movement states that she was pushing noticed that there was some blood when she wiped. Patient states she denies any significant rectal pain. She states she has lower abdominal cramping. Patient denies vomiting yesterday but states that she did have an episode today and complains of nausea and no reported fever. No chest pain. No flank pain - Related Data Home Medications Medication Instructions Recorded Confirmed Levothyroxine Sodium [Synthroid] 112 mcg PO DAILY 03/13/16 08/26/23 Montelukast [Singulair] 10 mg PO HS 03/13/16 08/26/23 Spironolactone-Hctz 25-25Mg 2 tab PO DAILY 03/13/16 08/26/23 [Aldactazide 25-25 MG] Albuterol Sulfate [Albuterol 2 puff PO RT-QID PRN 08/26/23 08/26/23 Sulfate Hfa] Budesonide/Formoterol Fumarate 2 puff INHALATION RT-BID 08/26/23 08/26/23 [Symbicort 160-4.5 Mcg Inhaler] Ibuprofen [Advil] 200 mg PO Q8HR PRN 08/26/23 08/26/23 Losartan [Cozaar] 12.5 mg PO HS 08/26/23 08/26/23 Rosuvastatin [Crestor] 10 mg PO HS 08/26/23 08/26/23 Tirzepatide [Mounjaro] 7.5 mg SQ TH 08/26/23 08/26/23 Allergies Allergy/AdvReac Type Severity Reaction Status Date / Time adhesive tape Allergy Skin Tears Verified 08/26/23 12:26 - Paper tape OK amoxicillin Allergy Rash/Hives Verified 08/26/23 12:13 Review of Systems ROS Statement: Those systems with pertinent positive or pertinent negative responses have been documented in the HPI. ROS Other: All systems not noted in ROS Statement are negative. Past Medical History Past Medical History: Asthma, Diabetes Mellitus, Hyperlipidemia, Hypertension, Sleep Apnea/CPAP/BIPAP, Thyroid Disorder History of Any Multi-Drug Resistant Organisms: None Reported Past Surgical History: Breast Surgery, Hysterectomy, Orthopedic Surgery, Tonsillectomy Additional Past Surgical History / Comment(s): BILATERAL CATARACT SURGERY BI LATERAL BUNYONECTOMY GREAT TOE Past Anesthesia/Blood Transfusion Reactions: No Reported Reaction Past Psychological History: No Psychological Hx Reported Smoking Status: Never smoker Past Alcohol Use History: None Reported Past Drug Use History: None Reported General Exam Limitations: no limitations General appearance: alert, in no apparent distress Head exam: Present: atraumatic, normocephalic, normal inspection Eye exam: Present: normal appearance, PERRL, EOMI. Absent: scleral icterus, conjunctival injection, periorbital swelling Respiratory exam: Present: normal lung sounds bilaterally. Absent: respiratory distress, wheezes, rales, rhonchi, stridor Cardiovascular Exam: Present: regular rate, normal rhythm, normal heart sounds. Absent: systolic murmur, diastolic murmur, rubs, gallop, clicks GI/Abdominal exam: Present: soft, tenderness, normal bowel sounds. Absent: di stended, guarding, rebound, rigid Back exam: Absent: CVA tenderness (R), CVA tenderness (L) Neurological exam: Present: alert Skin exam: Present: warm, dry, intact, normal color. Absent: rash Course Vital Signs 08/26/23 08/26/23 08/26/23 07:29 10:57 14:01 Temperature 97.8 F Pulse Rate 77 63 73 Respiratory 18 18 18 Rate Blood Pressure 151/70 107/70 112/64 O2 Sat by Pulse 97 95 93 L Oximetry Medical Decision Making - Medical Decision Making Was pt. sent in by a medical professional or institution (, PA, CAR DUMPER, urgent care, hospital, or chcf...) When possible be specific @ -No Did you speak to anyone other than the patient for history (EMS, parent, family, police, friend...)? What history was obtained from this source @ -No Did you review nursing and triage notes (agree or disagree)? Why? @ -I reviewed and agree with nursing and triage notes Were old charts reviewed (outside hosp., previous admission, EMS record, old EKG, old radiological studies, urgent care reports/EKG's, chcf records)? Report findings @ -No old charts were reviewed Differential Diagnosis (chest pain, altered mental status, abdominal pain women, abdominal pain men, vaginal bleeding, weakness, fever, dyspnea, syncope, headache, dizziness, GI bleed, back pain, seizure, CVA, palpatations, mental health, musculoskeletal)? @ -Differential Abdominal Pain Women: Appendicitis, Cholecystitis, diverticulosis, ischemic bowel, pancreatitis, hepatitis, UTI, gastroenteritis, AAA, incarcerated hernia, bowel obstruction, constipation, inflammatory bowel, hepatitis, peptic ulcer disease, splenic infarction, perforated viscus, vulvitis, ovarian torsion, PID, kidney stone, placenta abruption, this is not meant to be an all-inclusive list EKG interpreted by me (3pts min.). @ -None X-rays interpreted by me (1pt min.). @ -None done CT interpreted by me (1pt min.). @ -CT on pelvis shows evidence of diverticulitis, possible underlying mass U/S interpreted by me (1pt. min.). @ -Ultrasound shows evidence of acute DVT What testing was considered but not performed or refused? (CT, X-rays, U/S, labs)? Why? @ -None What meds were considered but not given or refused? Why? @ -None Did you discuss the management of the patient with other professionals (professionals i.e. , PA, CAR DUMPER, lab, RT, psych nurse, social media sr strategy manager, debrander, teacher, rating officer, case operator)? Give summary @ -[Dr. Taylor. Patient has evidence of diverticulitis possible mass will be admi tted with surgery consult. Patient did complain of left leg pain and ultrasound was ordered at the time of admission. Was smoking cessation discussed for >3mins.? @ -No Was critical care preformed (if so, how long)? @ -No Were there social determinants of health that impacted care today? How? (Homelessness, low income, unemployed, alcoholism, drug addiction, transportation, low edu. Level, literacy, decrease access to med. care, senior living, rehab)? @ -No Was there de-escalation of care discussed even if they declined (Discuss DNR or withdrawal of care, Hospice)? DNR status @ -No What co-morbidities impacted this encounter? (DM, HTN, Smoking, COPD, CAD, Cancer, CVA, ARF, Chemo, Hep., AIDS, mental health diagnosis, sleep apnea, morbid obesity)? @ -None Was patient admitted / discharged? Hospital course, mention meds given and route, prescriptions, significant lab abnormalities, going to OR and other pertinent info. @ -[Admitted patient has acute diverticulitis requiring IV antibiotics, nothing by mouth day, fluid and pain control. Patient will be started on Zosyn.. Patient will have evaluation by surgery secondary to possible mass seen on CT. Patient is not complaining of right leg pain and mild swelling. Ultrasound will be ordered and followed up. Undiagnosed new problem with uncertain prognosis? @ -No Drug Therapy requiring intensive monitoring for toxicity (Heparin, Nitro, Insulin, Cardizem)? @ -No Were any procedures done? @ -No Diagnosis/symptom? @ -[Acute diverticulitis Acute, or Chronic, or Acute on Chronic? @ -Acute Uncomplicated (without systemic symptoms) or Complicated (systemic symptoms)? @ -Complicated Side effects of treatment? @ -No Exacerbation, Progression, or Severe Exacerbation? @ -No Poses a threat to life or bodily function? How? (Chest pain, [place], [place], pneumonia, PE, COPD, DKA, ARF, appy, cholecystitis, CVA, Diverticulitis, Homicidal, Suicidal, threat to staff... and all critical care pts) @ -Yes patient has evidence of diverticulitis - Lab Data Result diagrams: 08/26/23 08:30 08/26/23 08:30 Lab Results 08/26/23 08/26/23 08/26/23 Range/Units 08:30 08:30 08:30 WBC 12.5 H (3.8-10.6) k/uL RBC 4.76 (3.80-5.40) m/uL Hgb 14.8 (11.4-16.0) gm/dL Hct 41.4 (34.0-46.0) % MCV 87.0 (80.0-100.0) fL MCH 31.0 (25.0-35.0) pg MCHC 35.7 (31.0-37.0) g/dL RDW 13.6 (11.5-15.5) % Plt Count 146 L (150-450) k/uL MPV 7.4 Neutrophils % 86 % Lymphocytes % 7 % Monocytes % 5 % Eosinophils % 1 % Basophils % 0 % Neutrophils # 10.8 H (1.3-7.7) k/uL Lymphocytes # 0.9 L (1.0-4.8) k/uL Monocytes # 0.6 (0-1.0) k/uL Eosinophils # 0.1 (0-0.7) k/uL Basophils # 0.0 (0-0.2) k/uL Sodium 131 L (137-145) mmol/L Potassium 3.5 (3.5-5.1) mmol/L Chloride 94 L (98-107) mmol/L Carbon Dioxide 24 (22-30) mmol/L Anion Gap 13 mmol/L BUN 21 H (7-17) mg/dL Creatinine 0.65 (0.52-1.04) mg/dL Est GFR (CKD-EPI)AfAm >90 (>60 ml/min/1.73 sqM) Est GFR (CKD-EPI)NonAf 84 (>60 ml/min/1.73 sqM) Glucose 141 H (74-99) mg/dL Plasma Lactic Acid Karthik 1.8 (0.7-2.0) mmol/L Calcium 9.8 (8.4-10.2) mg/dL Total Bilirubin 1.3 (0.2-1.3) mg/dL AST 30 (14-36) U/L ALT 19 (4-34) U/L Alkaline Phosphatase 77 (38-126) U/L Total Protein 7.0 (6.3-8.2) g/dL Albumin 4.1 (3.5-5.0) g/dL Lipase 121 (23-300) U/L Urine Color Urine Appearance (Clear) Urine pH (5.0-8.0) Ur Specific [place] (1.001-1.035) Urine Protein (Negative) Urine Glucose (UA) (Negative) Urine Ketones (Negative) Urine Blood (Negative) Urine Nitrite (Negative) Urine Bilirubin (Negative) Urine Urobilinogen (<2.0) mg/dL Ur Leukocyte Esterase (Negative) Urine WBC (0-5) /hpf Ur Squamous Epith Cells (0-4) /hpf Urine Bacteria (None) /hpf Urine Mucus (None) /hpf 08/26/23 Range/Units 09:32 WBC (3.8-10.6) k/uL RBC (3.80-5.40) m/uL Hgb (11.4-16.0) gm/dL Hct (34.0-46.0) % MCV (80.0-100.0) fL MCH (25.0-35.0) pg MCHC (31.0-37.0) g/dL RDW (11.5-15.5) % Plt Count (150-450) k/uL MPV Neutrophils % % Lymphocytes % % Monocytes % % Eosinophils % % Basophils % % Neutrophils # (1.3-7.7) k/uL Lymphocytes # (1.0-4.8) k/uL Monocytes # (0-1.0) k/uL Eosinophils # (0-0.7) k/uL Basophils # (0-0.2) k/uL Sodium (137-145) mmol/L Potassium (3.5-5.1) mmol/L Chloride (98-107) mmol/L Carbon Dioxide (22-30) mmol/L Anion Gap mmol/L BUN (7-17) mg/dL Creatinine (0.52-1.04) mg/dL Est GFR (CKD-EPI)AfAm (>60 ml/min/1.73 sqM) Est GFR (CKD-EPI)NonAf (>60 ml/min/1.73 sqM) Glucose (74-99) mg/dL Plasma Lactic Acid Karthik (0.7-2.0) mmol/L Calcium (8.4-10.2) mg/dL Total Bilirubin (0.2-1.3) mg/dL AST (14-36) U/L ALT (4-34) U/L Alkaline Phosphatase (38-126) U/L Total Protein (6.3-8.2) g/dL Albumin (3.5-5.0) g/dL Lipase (23-300) U/L Urine Color Colorless Urine Appearance Cloudy H (Clear) Urine pH 6.5 (5.0-8.0) Ur Specific [place] 1.009 (1.001-1.035) Urine Protein Negative (Negative) Urine Glucose (UA) Negative (Negative) Urine Ketones Negative (Negative) Urine Blood Negative (Negative) Urine Nitrite Negative (Negative) Urine Bilirubin Negative (Negative) Urine Urobilinogen <2.0 (<2.0) mg/dL Ur Leukocyte Esterase Small H (Negative) Urine WBC 2 (0-5) /hpf Ur Squamous Epith Cells 9 H (0-4) /hpf Urine Bacteria Rare H (None) /hpf Urine Mucus Rare H (None) /hpf Disposition Clinical Impression: Diverticulitis, Abdominal pain Disposition: ADMITTED IP TO THIS [facility] Time of Disposition: 12:22
[2023-08-26 08:48] LABS: Basophils % (A) 0 %; Eosinophils # (A) 0.1 k/uL (0-0.7); Eosinophils % (A) 1 %; HCT 41.4 % (34.0-46.0); HGB 14.8 gm/dL (11.4-16.0); Lymphocytes # (A) 0.9 k/uL (1.0-4.8); Lymphocytes % (A) 7 %; MCHC 35.7 g/dL (31.0-37.0); Mean Platelet Volume 7.4; Monocytes # (A) 0.6 k/uL (0-1.0); Monocytes % (A) 5 %; Neutrophils # (A) 10.8 k/uL (1.3-7.7); Neutrophils % (A) 86 %; Platelet Count 146 k/uL (150-450); RBC 4.76 m/uL (3.80-5.40); RDW 13.6 % (11.5-15.5); WBC 12.5 k/uL (3.8-10.6)
[2023-08-26 09:47] LABS: African American GFR (CKD) >90 (>60 ml/min/1.73 sqM); Albumin 4.1 g/dL (3.5-5.0); Alkaline Phosphatase 77 U/L (38-126); Carbon Dioxide 24 mmol/L (22-30); Chloride 94 mmol/L (98-107); Lipase 121 U/L (23-300); Non-African American GFR(CKD) 84 (>60 ml/min/1.73 sqM)
[2023-08-26 09:57] LABS: Appearance,Urine Cloudy (Clear); Bacteria,Urine Rare /hpf; Bilirubin,Urine Negative (Negative); Blood,Urine Negative (Negative); Color,Urine Colorless; Glucose,Urine (UA) Negative (Negative); Ketones,Urine Negative (Negative); Leukocyte Esterase,Urine Small (Negative); Mucus,Urine Rare /hpf; Nitrite,Urine Negative (Negative); PH, Urine 6.5 (5.0-8.0); Protein,Urine Negative (Negative); Specific Gravity,Urine 1.009 (1.001-1.035); Squamous Epithelial Cell,Urine 9 /hpf (0-4); Urobilinogen,Urine <2.0 mg/dL (<2.0); WBC,Urine 2 /hpf (0-5)
[2023-08-26 10:29] LABS: ALT 19 U/L (4-34); AST 30 U/L (14-36); Anion Gap 13 mmol/L; Blood Urea Nitrogen 21 mg/dL (7-17); Calcium 9.8 mg/dL (8.4-10.2); Glucose 141 mg/dL (74-99); Potassium 3.5 mmol/L (3.5-5.1); Sodium 131 mmol/L (137-145); Total Bilirubin 1.3 mg/dL (0.2-1.3)
--- NOTE | 2023-08-26 11:42 | CT ---
EXAMINATION TYPE: CT abdomen pelvis w con CT DLP: 1049.1 mGycm, Automated exposure control for dose reduction was used. DATE OF EXAM: 08/26/2023 10:28 AM COMPARISON: None CLINICAL INDICATION:Female, 82 years old with history of abd pain; Lower abdominal pain and bright re d blood in stool. TECHNIQUE: Axial CT of the abdomen and pelvis. Sagittal and coronal reformats were created on a [employer] workstation. Contrast used:100ml mL of Isovue 370 with IV Contrast, (none if empty) Oral contrast used: without Oral Contrast (none if empty) FINDINGS: LOWER CHEST: Heart appears borderline mildly enlarged. Mild coronary arterial calcifications. Promine nt pericardial fat noted without pericardial effusion. Mild bibasilar atelectasis. Mildly prominent p leural fat without significant pleural effusion. ABDOMEN LIVER: Unremarkable GALLBLADDER AND BILE DUCTS: Unremarkable gallbladder. No biliary ductal dilatation. PANCREAS: Mild fatty infiltration without acute finding SPLEEN: Unremarkable spleen. Calcifications in the splenic hilum, likely vascular; small calcified sp lenic artery aneurysm could be present. ADRENAL GLANDS: Thickened and small nodular appearance of the adrenals, could be due to hyperplasia a nd/or adenomatoid changes.. KIDNEYS AND URETERS: Kidneys enhance symmetrically, concentrate and excrete contrast symmetrically. N o evidence of hydronephrosis or visible renal calculus. The ureters are unremarkable. PELVIS BLADDER: Incompletely distended but grossly unremarkable. REPRODUCTIVE: The uterus appears absent, correlate for hysterectomy. Ovaries are not clearly identif ied. No suggestion of pelvic mass. ABDOMEN & PELVIS STOMACH AND BOWEL: Question tiny sliding hiatal hernia with mild esophagitic thickening of the distal esophagus. Stomach and small bowel are nondistended, there is no evidence of obstruction. The appen [place] appears within normal limits. There is mild to moderate stool scattered throughout the colon. The re is slightly higher attenuation filling defect within the cecum, this may also reflect stool but ma ss cannot be excluded. Beginning in the mid to distal transverse colon, there is diffuse colonic wall thickening which extends to the distal sigmoid region. There are surrounding inflammatory changes of the pericolonic fat. While there are numerous diverticula in the region, the inflammation does not a ppear particularly centered upon a diverticulum. No extraluminal gas or abscess is seen. PERITONEUM/RETROPERITONEUM: No evidence of pneumoperitoneum or free fluid. VASCULATURE: Mild atherosclerotic calcifications are present throughout the abdominal aorta and its b ranches. Aorta is tortuous without evidence of aortic aneurysm. Portal veins are enhancing. Splenic vein is patent. LYMPH NODES: No gross evidence for lymphadenopathy. SOFT TISSUE/ABDOMINAL WALL: Unremarkable MUSCULOSKELETAL: Mild/moderate degenerative changes of the visualized spine, greatest inferiorly. Gr demarco 1 anterolisthesis L4 on L5, measuring up to 7 mm, appears degenerative. There is moderate to abigail re spinal canal stenosis L4-L5 and mild to moderate bilateral neural foraminal stenoses. IMPRESSION: 1. Mild to moderate stool scattered throughout the colon, no evidence of obstruction. 2. Slightly higher attenuation filling defect within the cecum, may also reflect stool but mass lakisha ot be excluded. 3. Diffuse colonic wall thickening from the mid to distal transverse colon to the distal sigmoid, wi th surrounding pericolonic inflammatory changes. While there are numerous diverticula in the region, the inflammation does not appear particularly centered upon a diverticulum. Appearance is most suspic ious for nonspecific colitis.
[2023-08-26] MEDS ORDERED: HYDROcodone/APAP 5-325MG 1 EACH TAB PO PRN (12:23)
[2023-08-26] MEDS ORDERED: NALOXONE 0.4 MG/ML 1 ML VIAL IV PRN ×2 (12:23→14:10)
[2023-08-26] MEDS ORDERED: HYDROmorphone 0.5 MG/0.5 ML SYRINGE IVP PRN ×2 (12:23→14:10)
[2023-08-26] MEDS ORDERED: ONDANSETRON 4 MG/2 ML VIAL IVP PRN (12:23)
[2023-08-26 13:28] LABS: Glucose,Whole Blood 128 mg/dL (70-110)
--- NOTE | 2023-08-26 13:34 | US ---
EXAMINATION TYPE: US venous doppler duplex LE RT DATE OF EXAM: 08/26/2023 1:09 PM COMPARISON: NONE CLINICAL INDICATION: Female, 82 years old with history of pain/swelling x few days; Patient denies an y other signs or symptoms or relevant history SIDE PERFORMED: Bilateral TECHNIQUE: The lower extremity deep venous system is examined utilizing real time linear array sonog rai with graded compression, doppler sonography and color-flow sonography. VESSELS IMAGED: Common Femoral Vein Deep Femoral Vein Greater Saphenous Vein * Femoral Vein Popliteal Vein Small Saphenous Vein * Proximal Calf Veins (* superficial vessels) There is color flow, spontaneous and phasic flow with normal compressibility seen of the external serge ac vein, common femoral vein, greater saphenous vein, profunda, and proximal femoral vein. In the mid femoral vein and extending to the popliteal and the proximal calf veins, there is intraluminal filli ng defect with significantly diminished color flow signal and noncompressibility consistent with DVT, likely acute. This does not appear completely occlusive. Right Leg: Positive for DVT; Mid femoral to proximal calf veins IMPRESSION: Positive for DVT in the right lower extremity, from the mid femoral vein to the proximal calf veins.
[2023-08-26] MEDS: SODIUM CHLORIDE 0.9% 1,000 ML IV SCH (13:55)
[2023-08-26] MEDS ORDERED: MELATONIN 3 MG TABLET PO PRN (14:10)
[2023-08-26] MEDS ORDERED: MAG HYDROX/AL HYDROX/SIMETH 30 ML CUP PO PRN (14:10)
[2023-08-26] MEDS ORDERED: ALBUTEROL NEBULIZED 2.5 MG/3 ML INHALATION PRN (14:13)
[2023-08-26] MEDS ORDERED: HEPARIN SODIUM 1,000 UN/ML (10ML VL) IV ONE (14:19)
--- NOTE | 2023-08-26 14:25 | P.HPIM ---
History of Present Illness H&P Date: 08/26/23 History of present illness; patient is a 82-year-old lady with past medical hist ory significant for hypertension, hyperlipidemia, hypothyroidism presents to Hospital because of abdominal pain. Patient stated that she was all right last night when after [place] dinner she started experiencing abdominal pain that was located in the lower part of abdominal., Abdominal pain was severe, nonradiating, not associated with any nausea or vomiting. No aggravating or relieving factors associated with this abdominal pain. Patient did feel like a restricted defecate and tried to have a bowel movement, patient tried for an hour with small amount of stool, she also noticed some fresh blood dripping at the time of wiping her self. Patient woke up this morning again with abdominal pain in the lower part. This morning she had an episode of nausea and vomiting and decided to come to the ER. Initial lab work done in the ER showed WBC 12.5, hemoglobin 14.8, platelet count 146, sodium 131, potassium 3.5, BUN 21, creatinine 0.65, glucose 141, lactate 1.8, bilirubin 1.3 UA negative for any infection CT abdominal and pelvis done showed [id number] stool scattered throughout the colon. Slightly high indicating filling defect in the cecum. Diffuse colonic wall thickening from the mid to distal transverse colon to the distal sigmoid. Appearance Suspicious for nonspecific colitis Patient admitted to internal medicine service REVIEW OF SYSTEMS: CONSTITUTIONAL: No fever, no malaise, no fatigue. HEENT: No recent visual problems or hearing problems. Denied any sore throat. CARDIOVASCULAR: No chest pain, orthopnea, PND, no palpitations, no syncope. PULMONARY: No shortness of breath, no cough, no hemoptysis. GASTROINTESTINAL: As mentioned in HPI NEUROLOGICAL: No headaches, no weakness, no numbness. HEMATOLOGICAL: Denies any bleeding or petechiae. GENITOURINARY: Denies any burning micturition, frequency, or urgency. MUSCULOSKELETAL/RHEUMATOLOGICAL: Complaining of swelling of right lower extremity ENDOCRINE: Denies any polyuria or polydipsia. The rest of the 14-point review of systems is negative. PHYSICAL EXAMINATION: GENERAL: The patient is alert and oriented x3, not in any acute distress. Well developed, well nourished. HEENT: Pupils are round and equally reacting to light. EOMI. No scleral icterus. No conjunctival pallor. Normocephalic, atraumatic. No pharyngeal erythema. No thyromegaly. CARDIOVASCULAR: S1 and S2 present. No murmurs, rubs, or gallops. PULMONARY: Chest is clear to auscultation, no wheezing or crackles. ABDOMEN: Soft, nontender, nondistended, normoactive bowel sounds. No palpable organomegaly. MUSCULOSKELETAL: Swelling of right lower extremity EXTREMITIES: No cyanosis, clubbing, or pedal edema. NEUROLOGICAL: Gross neurological examination did not reveal any focal deficits. SKIN: No rashes. Assessment and plan Acute colitis Right lower extremity DVT Hypothyroidism COPD Hypertension Hyperlipidemia Monitor vital signs Monitor CBC Monitor CMP Ordered blood cultures Continue IV fluids continue antiemetics Continue IV Rocephin and Flagyl Start pharmacy dose heparin Consult surgery consulted ID Vascular surgery consulted Labs and medication were reviewed.. Continue same treatment. Continue with sym ptomatic treatment. Resume home medication. Monitor labs and vitals. DVT and GI prophylaxis. Further recommendations as per clinical course of the patient Dictation was produced using [employer] dictation software. please excuse any grammatical, word or spelling errors. Past Medical History Past Medical History: Asthma, Diabetes Mellitus, Hyperlipidemia, Hypertension, Sleep Apnea/CPAP/BIPAP, Thyroid Disorder History of Any Multi-Drug Resistant Organisms: None Reported Past Surgical History: Breast Surgery, Hysterectomy, Orthopedic Surgery, Tonsillectomy Additional Past Surgical History / Comment(s): BILATERAL CATARACT SURGERY BILATERAL BUNYONECTOMY GREAT TOE Past Anesthesia/Blood Transfusion Reactions: No Reported Reaction Past Psychological History: No Psychological Hx Reported Smoking Status: Never smoker Past Alcohol Use History: None Reported Past Drug Use History: None Reported Medications and Allergies Home Medications Medication Instructions Recorded Confirmed Type Levothyroxine Sodium [Synthroid] 112 mcg PO DAILY 03/13/16 08/26/23 History Montelukast [Singulair] 10 mg PO HS 03/13/16 08/26/23 History Spironolactone-Hctz 25-25Mg 2 tab PO DAILY 03/13/16 08/26/23 History [Aldactazide 25-25 MG] Albuterol Sulfate [Albuterol 2 puff PO RT-QID PRN 08/26/23 08/26/23 History Sulfate Hfa] Budesonide/Formoterol Fumarate 2 puff INHALATION RT-BID 08/26/23 08/26/23 History [Symbicort 160-4.5 Mcg Inhaler] Ibuprofen [Advil] 200 mg PO Q8HR PRN 08/26/23 08/26/23 History Losartan [Cozaar] 12.5 mg PO HS 08/26/23 08/26/23 History Rosuvastatin [Crestor] 10 mg PO HS 08/26/23 08/26/23 History Tirzepatide [Mounjaro] 7.5 mg SQ TH 08/26/23 08/26/23 History Allergies Allergy/AdvReac Type Severity Reaction Status Date / Time adhesive tape Allergy Skin Tears Verified 08/26/23 12:26 - Paper tape OK amoxicillin Allergy Rash/Hives Verified 08/26/23 12:13 Physical Exam Vitals: Vital Signs Temp Pulse Resp BP Pulse Ox 08/26/23 14:01 73 18 112/64 93 L 08/26/23 10:57 63 18 107/70 95 08/26/23 07:29 97.8 F 77 18 151/70 97 Intake and Output 08/25/23 08/26/23 08/26/23 22:59 06:59 14:59 Other: Weight 81.647 kg Results CBC & Chem 7: 08/26/23 08:30 08/26/23 08:30 Labs: Abnormal Lab Results - Last 24 Hours (Table) 08/26/23 08/26/23 08/26/23 Range/Units 08:30 08:30 09:32 WBC 12.5 H (3.8-10.6) k/uL Plt Count 146 L (150-450) k/uL Neutrophils # 10.8 H (1.3-7.7) k/uL Lymphocytes # 0.9 L (1.0-4.8) k/uL Sodium 131 L (137-145) mmol/L Chloride 94 L (98-107) mmol/L BUN 21 H (7-17) mg/dL Glucose 141 H (74-99) mg/dL POC Glucose (mg/dL) (70-110) mg/dL Urine Appearance Cloudy H (Clear) Ur Leukocyte Esterase Small H (Negative) Ur Squamous Epith Cells 9 H (0-4) /hpf Urine Bacteria Rare H (None) /hpf Urine Mucus Rare H (None) /hpf 08/26/23 Range/Units 13:27 WBC (3.8-10.6) k/uL Plt Count (150-450) k/uL Neutrophils # (1.3-7.7) k/uL Lymphocytes # (1.0-4.8) k/uL Sodium (137-145) mmol/L Chloride (98-107) mmol/L BUN (7-17) mg/dL Glucose (74-99) mg/dL POC Glucose (mg/dL) 128 H (70-110) mg/dL Urine Appearance (Clear) Ur Leukocyte Esterase (Negative) Ur Squamous Epith Cells (0-4) /hpf Urine Bacteria (None) /hpf Urine Mucus (None) /hpf
[2023-08-26 15:58] LABS: Basophils % (A) 0 %; Eosinophils # (A) 0.2 k/uL (0-0.7); Eosinophils % (A) 1 %; HCT 40.5 % (34.0-46.0); HGB 14.1 gm/dL (11.4-16.0); Lymphocytes # (A) 1.2 k/uL (1.0-4.8); Lymphocytes % (A) 9 %; MCH 30.6 pg (25.0-35.0); MCHC 34.8 g/dL (31.0-37.0); MCV 87.8 fL (80.0-100.0); Mean Platelet Volume 7.4; Monocytes # (A) 0.8 k/uL (0-1.0); Monocytes % (A) 5 %; Neutrophils # (A) 11.8 k/uL (1.3-7.7); Neutrophils % (A) 83 %; Platelet Count 237 k/uL (150-450); RBC 4.61 m/uL (3.80-5.40); RDW 13.7 % (11.5-15.5); WBC 14.2 k/uL (3.8-10.6)
[2023-08-26] MEDS: metroNIDAZOLE-NS PMX 500 MG in SALINE 1 100ML.BAG IVPB STA ×2 (16:03→17:37)
[2023-08-26] MEDS: HEPARIN SOD,PORK IN 0.45% NACL 25,000 UNIT in 0.45% NACL 1 250ML.BAG IV SCH (16:07)
[2023-08-26 16:10] LABS: INR 1.1 (<1.2); Partial Thromboplastin Time 23.5 sec (22.0-30.0); Prothrombin Time 11.8 sec (10.0-12.5)
--- NOTE | 2023-08-26 16:18 | P.GSCN ---
History of Present Illness Consult date: 08/26/23 Reason for Consult: Colitis History of present illness: This is an 82-year-old female who was admitted to the hospital complaints of abdominal pain. Patient states that she had [place] dinner last night and developed severe abdominal pain. She states that she saw a small amount of blood when she had a bowel movement last night. Patient's CAT scan suggestive of colitis of the left colon. There is diffuse colonic wall thickening of the mid transverse the distal sigmoid colon. There is numerous diverticuli in the sigmoid colon. The inflammation is not to be appeared to be centered around diverticula. There is a filling defect. Which appears to be stool. Past Medical History Past Medical History: Asthma, Diabetes Mellitus, Hyperlipidemia, Hypertension, Sleep Apnea/CPAP/BIPAP, Thyroid Disorder History of Any Multi-Drug Resistant Organisms: None Reported Past Surgical History: Breast Surgery, Hysterectomy, Orthopedic Surgery, Tonsillectomy Additional Past Surgical History / Comment(s): BILATERAL CATARACT SURGERY BILATERAL BUNYONECTOMY GREAT TOE Past Anesthesia/Blood Transfusion Reactions: No Reported Reaction Past Psychological History: No Psychological Hx Reported Smoking Status: Never smoker Past Alcohol Use History: None Reported Past Drug Use History: None Reported Medications and Allergies Home Medications Medication Instructions Recorded Confirmed Type Levothyroxine Sodium [Synthroid] 112 mcg PO DAILY 03/13/16 08/26/23 History Montelukast [Singulair] 10 mg PO HS 03/13/16 08/26/23 History Spironolactone-Hctz 25-25Mg 2 tab PO DAILY 03/13/16 08/26/23 History [Aldactazide 25-25 MG] Albuterol Sulfate [Albuterol 2 puff PO RT-QID PRN 08/26/23 08/26/23 History Sulfate Hfa] Budesonide/Formoterol Fumarate 2 puff INHALATION RT-BID 08/26/23 08/26/23 History [Symbicort 160-4.5 Mcg Inhaler] Ibuprofen [Advil] 200 mg PO Q8HR PRN 08/26/23 08/26/23 History Losartan [Cozaar] 12.5 mg PO HS 08/26/23 08/26/23 History Rosuvastatin [Crestor] 10 mg PO HS 08/26/23 08/26/23 History Tirzepatide [Mounjaro] 7.5 mg SQ TH 08/26/23 08/26/23 History Allergies Allergy/AdvReac Type Severity Reaction Status Date / Time adhesive tape Allergy Skin Tears Verified 08/26/23 12:26 - Paper tape OK amoxicillin Allergy Rash/Hives Verified 08/26/23 12:13 Surgical - Exam Vital Signs Temp Pulse Resp BP Pulse Ox 97.8 F 77 18 151/70 97 08/26/23 07:29 08/26/23 07:29 08/26/23 07:29 08/26/23 07:29 08/26/23 07:29 - General well developed, well nourished, no distress, moderate distress - Eyes PERRL - ENT normal pinna - Neck no masses - Respiratory normal expansion - Cardiovascular Rhythm: regular - Abdomen Abdomen: soft, non tender Results - Labs 08/26/23 15:39 08/26/23 08:30 Abnormal Lab Results - Last 24 Hours (Table) 08/26/23 08/26/23 08/26/23 Range/Units 08:30 08:30 09:32 WBC 12.5 H (3.8-10.6) k/uL Plt Count 146 L (150-450) k/uL Neutrophils # 10.8 H (1.3-7.7) k/uL Lymphocytes # 0.9 L (1.0-4.8) k/uL Sodium 131 L (137-145) mmol/L Chloride 94 L (98-107) mmol/L BUN 21 H (7-17) mg/dL Glucose 141 H (74-99) mg/dL POC Glucose (mg/dL) (70-110) mg/dL Urine Appearance Cloudy H (Clear) Ur Leukocyte Esterase Small H (Negative) Ur Squamous Epith Cells 9 H (0-4) /hpf Urine Bacteria Rare H (None) /hpf Urine Mucus Rare H (None) /hpf 08/26/23 08/26/23 Range/Units 13:27 15:39 WBC 14.2 H (3.8-10.6) k/uL Plt Count (150-450) k/uL Neutrophils # 11.8 H (1.3-7.7) k/uL Lymphocytes # (1.0-4.8) k/uL Sodium (137-145) mmol/L Chloride (98-107) mmol/L BUN (7-17) mg/dL Glucose (74-99) mg/dL POC Glucose (mg/dL) 128 H (70-110) mg/dL Urine Appearance (Clear) Ur Leukocyte Esterase (Negative) Ur Squamous Epith Cells (0-4) /hpf Urine Bacteria (None) /hpf Urine Mucus (None) /hpf Diabetes panel 08/26/23 Range/Units 08:30 Sodium 131 L (137-145) mmol/L Potassium 3.5 (3.5-5.1) mmol/L Chloride 94 L (98-107) mmol/L Carbon Dioxide 24 (22-30) mmol/L BUN 21 H (7-17) mg/dL Creatinine 0.65 (0.52-1.04) mg/dL Glucose 141 H (74-99) mg/dL Calcium 9.8 (8.4-10.2) mg/dL AST 30 (14-36) U/L ALT 19 (4-34) U/L Alkaline Phosphatase 77 (38-126) U/L Total Protein 7.0 (6.3-8.2) g/dL Albumin 4.1 (3.5-5.0) g/dL Calcium panel 08/26/23 Range/Units 08:30 Calcium 9.8 (8.4-10.2) mg/dL Albumin 4.1 (3.5-5.0) g/dL Pituitary panel 08/26/23 Range/Units 08:30 Sodium 131 L (137-145) mmol/L Potassium 3.5 (3.5-5.1) mmol/L Chloride 94 L (98-107) mmol/L Carbon Dioxide 24 (22-30) mmol/L BUN 21 H (7-17) mg/dL Creatinine 0.65 (0.52-1.04) mg/dL Glucose 141 H (74-99) mg/dL Calcium 9.8 (8.4-10.2) mg/dL Adrenal panel 08/26/23 Range/Units 08:30 Sodium 131 L (137-145) mmol/L Potassium 3.5 (3.5-5.1) mmol/L Chloride 94 L (98-107) mmol/L Carbon Dioxide 24 (22-30) mmol/L BUN 21 H (7-17) mg/dL Creatinine 0.65 (0.52-1.04) mg/dL Glucose 141 H (74-99) mg/dL Calcium 9.8 (8.4-10.2) mg/dL Total Bilirubin 1.3 (0.2-1.3) mg/dL AST 30 (14-36) U/L ALT 19 (4-34) U/L Alkaline Phosphatase 77 (38-126) U/L Total Protein 7.0 (6.3-8.2) g/dL Albumin 4.1 (3.5-5.0) g/dL - Imaging CT scan - pelvis: pending (Moderate scattered stool throughout the colon. Severe colonic wall thickening of the mid transverse to sigmoid:) Assessment and Plan Assessment: Severe colitis of left colon. Patient will be medically optimized. We will plan for outpatient colonoscopy if the patient remains stable.
[2023-08-26] MEDS: metroNIDAZOLE-NS PMX 500 MG in SALINE 1 100ML.BAG IVPB SCH (17:37)
[2023-08-26 20:02] LABS: HCT 38.5 % (34.0-46.0); HGB 13.5 gm/dL (11.4-16.0); MCHC 35.1 g/dL (31.0-37.0); MCV 88.5 fL (80.0-100.0); Mean Platelet Volume 7.4; Platelet Count 222 k/uL (150-450); RBC 4.35 m/uL (3.80-5.40); RDW 13.7 % (11.5-15.5); WBC 13.6 k/uL (3.8-10.6)
[2023-08-26] MEDS: LOSARTAN 25 MG TAB PO SCH (22:10)
[2023-08-26] MEDS: ATORVASTATIN 20 MG TAB PO SCH (22:10)
[2023-08-26] MEDS: MONTELUKAST 10 MG TAB PO SCH (22:10)
[2023-08-27] MEDS: metroNIDAZOLE-NS PMX 500 MG in SALINE 1 100ML.BAG IVPB SCH ×3 (00:39→16:54)
[2023-08-27] MEDS: SYMBICORT 160-4.5 MCG INHALER INHALATION SCH ×3 (01:16→20:24)
[2023-08-27] MEDS: LEVOTHYROXINE 112 MCG TAB PO SCH (06:50)
[2023-08-27] MEDS: SPIRONOLACTONE-HCTZ 25-25MG 1 EACH TAB PO SCH (08:35)
[2023-08-27] MEDS ORDERED: ENOXAPARIN 40 MG/0.4 ML SYRINGE SQ SCH (09:00)
--- NOTE | 2023-08-27 10:09 | P.GSCN ---
History of Present Illness Consult date: 08/27/23 Reason for Consult: Right lower extremity DVT Requesting physician: Audi Taylor History of present illness: This a pleasant 82-year-old female who presented to the emergency department with complaints of abdominal pain, nausea and vomiting. Patient continued to have lower abdominal cramping felt like she had have a bowel movement but took her almost an hour and with straining and pushing did see small amount of blood on her tissue with wiping. She also reported that since last she's had swelling in her right lower extremity and a little bit of redness. Patient was admitted for pancolitis, she was started on ceftriaxone and Flagyl. She also underwent venous duplex of the right lower extremity which was positive for mid femoral to popliteal deep vein thrombosis. Patient was started on a heparin dri p. Vascular surgery was consulted for right lower extremity DVT and concern for possible GI bleed. Patient was started on a heparin drip. Patient has not had any further rectal bleeding. Hemoglobin is stable at 13.5. She denies any recent surgeries, denies being sedentary, no recent trips and no family history or personal history of blood clots in the past. Patient states she does have some shortness of breath, no chest pain, abdominal cramping is present with no rectal bleeding. No nausea or vomiting currently. She is nothing by mouth. Review of Systems A 14 point review systems was completed all pertinent positives and negatives as stated in the HPI. Past Medical History Past Medical History: Asthma, Diabetes Mellitus, Hyperlipidemia, Hypertension, Sleep Apnea/CPAP/BIPAP, Thyroid Disorder History of Any Multi-Drug Resistant Organisms: None Reported Past Surgical History: Breast Surgery, Hysterectomy, Orthopedic Surgery, Tonsillectomy Additional Past Surgical History / Comment(s): BILATERAL CATARACT SURGERY BILATERAL BUNYONECTOMY GREAT TOE Past Anesthesia/Blood Transfusion Reactions: No Reported Reaction Past Psychological History: No Psychological Hx Reported Smoking Status: Never smoker Past Alcohol Use History: None Reported Past Drug Use History: None Reported Medications and Allergies Home Medications Medication Instructions Recorded Confirmed Type Levothyroxine Sodium [Synthroid] 112 mcg PO DAILY 03/13/16 08/26/23 History Montelukast [Singulair] 10 mg PO HS 03/13/16 08/26/23 History Spironolactone-Hctz 25-25Mg 2 tab PO DAILY 03/13/16 08/26/23 History [Aldactazide 25-25 MG] Albuterol Sulfate [Albuterol 2 puff PO RT-QID PRN 08/26/23 08/26/23 History Sulfate Hfa] Budesonide/Formoterol Fumarate 2 puff INHALATION RT-BID 08/26/23 08/26/23 History [Symbicort 160-4.5 Mcg Inhaler] Ibuprofen [Advil] 200 mg PO Q8HR PRN 08/26/23 08/26/23 History Losartan [Cozaar] 12.5 mg PO HS 08/26/23 08/26/23 History Rosuvastatin [Crestor] 10 mg PO HS 08/26/23 08/26/23 History Tirzepatide [Mounjaro] 7.5 mg SQ TH 08/26/23 08/26/23 History Allergies Allergy/AdvReac Type Severity Reaction Status Date / Time adhesive tape Allergy Skin Tears Verified 08/26/23 12:26 - Paper tape OK amoxicillin Allergy Rash/Hives Verified 08/26/23 12:13 Surgical - Exam Vital Signs Temp Pulse Resp BP Pulse Ox 97.8 F 77 18 151/70 97 08/26/23 07:29 08/26/23 07:29 08/26/23 07:29 08/26/23 07:29 08/26/23 07:29 General appearance: The patient is alert, oriented, appears in no acute distress. HET: Head is normocephalic and atraumatic. Neck: Supple. Heart: Regular. Lungs: Equal expansion, normal respiratory effort. Abdomen: Soft, nontender, nondistended. Extremities: Normal skin color and turgor. Right lower extremity swelling, palpable bilateral DP pulses. Neurological: No focal deficits. Strength and sensation are grossly intact. Results - Labs 08/26/23 19:37 08/26/23 08:30 Abnormal Lab Results - Last 24 Hours (Table) 08/26/23 08/26/23 08/26/23 Range/Units 08:30 09:32 13:27 WBC (3.8-10.6) k/uL Neutrophils # (1.3-7.7) k/uL APTT (22.0-30.0) sec Sodium 131 L (137-145) mmol/L Chloride 94 L (98-107) mmol/L BUN 21 H (7-17) mg/dL Glucose 141 H (74-99) mg/dL POC Glucose (mg/dL) 128 H (70-110) mg/dL Urine Appearance Cloudy H (Clear) Ur Leukocyte Esterase Small H (Negative) Ur Squamous Epith Cells 9 H (0-4) /hpf Urine Bacteria Rare H (None) /hpf Urine Mucus Rare H (None) /hpf 08/26/23 08/26/23 08/26/23 Range/Units 15:39 19:37 22:38 WBC 14.2 H 13.6 H (3.8-10.6) k/uL Neutrophils # 11.8 H (1.3-7.7) k/uL APTT 45.2 H (22.0-30.0) sec Sodium (137-145) mmol/L Chloride (98-107) mmol/L BUN (7-17) mg/dL Glucose (74-99) mg/dL POC Glucose (mg/dL) (70-110) mg/dL Urine Appearance (Clear) Ur Leukocyte Esterase (Negative) Ur Squamous Epith Cells (0-4) /hpf Urine Bacteria (None) /hpf Urine Mucus (None) /hpf 08/27/23 Range/Units 06:17 WBC (3.8-10.6) k/uL Neutrophils # (1.3-7.7) k/uL APTT 37.3 H (22.0-30.0) sec Sodium (137-145) mmol/L Chloride (98-107) mmol/L BUN (7-17) mg/dL Glucose (74-99) mg/dL POC Glucose (mg/dL) (70-110) mg/dL Urine Appearance (Clear) Ur Leukocyte Esterase (Negative) Ur Squamous Epith Cells (0-4) /hpf Urine Bacteria (None) /hpf Urine Mucus (None) /hpf Diabetes panel 08/26/23 Range/Units 08:30 Sodium 131 L (137-145) mmol/L Potassium 3.5 (3.5-5.1) mmol/L Chloride 94 L (98-107) mmol/L Carbon Dioxide 24 (22-30) mmol/L BUN 21 H (7-17) mg/dL Creatinine 0.65 (0.52-1.04) mg/dL Glucose 141 H (74-99) mg/dL Calcium 9.8 (8.4-10.2) mg/dL AST 30 (14-36) U/L ALT 19 (4-34) U/L Alkaline Phosphatase 77 (38-126) U/L Total Protein 7.0 (6.3-8.2) g/dL Albumin 4.1 (3.5-5.0) g/dL Calcium panel 08/26/23 Range/Units 08:30 Calcium 9.8 (8.4-10.2) mg/dL Albumin 4.1 (3.5-5.0) g/dL Pituitary panel 08/26/23 Range/Units 08:30 Sodium 131 L (137-145) mmol/L Potassium 3.5 (3.5-5.1) mmol/L Chloride 94 L (98-107) mmol/L Carbon Dioxide 24 (22-30) mmol/L BUN 21 H (7-17) mg/dL Creatinine 0.65 (0.52-1.04) mg/dL Glucose 141 H (74-99) mg/dL Calcium 9.8 (8.4-10.2) mg/dL Adrenal panel 08/26/23 Range/Units 08:30 Sodium 131 L (137-145) mmol/L Potassium 3.5 (3.5-5.1) mmol/L Chloride 94 L (98-107) mmol/L Carbon Dioxide 24 (22-30) mmol/L BUN 21 H (7-17) mg/dL Creatinine 0.65 (0.52-1.04) mg/dL Glucose 141 H (74-99) mg/dL Calcium 9.8 (8.4-10.2) mg/dL Total Bilirubin 1.3 (0.2-1.3) mg/dL AST 30 (14-36) U/L ALT 19 (4-34) U/L Alkaline Phosphatase 77 (38-126) U/L Total Protein 7.0 (6.3-8.2) g/dL Albumin 4.1 (3.5-5.0) g/dL - Imaging Comments: Venous duplex: Positive for DVT; mid femoral to proximal lateral calf veins CT abdomen and pelvis with contrast reports mild to moderate stool scattered throughout the colon, no evidence of obstruction. Slightly higher attenuation filling defect within the cecum, may also reflect stool but mass cannot be excluded. Diffuse colonic wall thickening from mid to distal transverse colon to the distal sigmoid. With surrounding. Colonic inflammatory changes. While there are numerous diverticula in the region the inflammation does not appear particularly centered upon the diverticulum. Appearances most suspicious for nonspecific colitis. Assessment and Plan Assessment: 1. Right lower extremity deep vein thrombosis 2. Acute Colitis 3. Hypothyroidism 4. COPD 5. Hypertension 6. Hyperlipidemia Plan: There is no indication for IVC filter. Patient is tolerating anticoagulation without any symptoms of GI bleed. Recommend compression stocking to right lower extremity, elevate right lower extremity. Transition to oral anticoagulation of your choice when cleared by general surgery. Thank you for this consultation, we will sign off at this time. The impression and plan of care has been dictated as directed. I performed a history and examination of this patient, discussed the same with the dictator. I agree with the dictator's note ,documented as a scribe. Any additional findings or plans will be noted.
[2023-08-27] MEDS: ACETAMINOPHEN TAB 325 MG TAB PO PRN ×2 (10:34→20:21)
[2023-08-27] MEDS: HEPARIN SODIUM 1,000 UN/ML (10ML VL) IV PRN ×2 (10:41→17:47)
[2023-08-27 10:56] LABS: Basophils # (A) 0.03 X 10*3/uL (0.00-0.10); Basophils % (A) 0.3 %; Eosinophils # (A) 0.22 X 10*3/uL (0.04-0.35); HCT 37.7 % (37.2-46.3); HGB 12.8 g/dL (12.0-15.0); Lymphocytes # (A) 1.04 X 10*3/uL (0.90-5.00); Lymphocytes % (A) 9.4 %; MCH 29.9 pg (27.0-32.0); MCV 88.1 FL (80.0-97.0); Mean Platelet Volume 10.4 FL (9.5-12.2); Monocytes % (A) 7.2 %; NRBC Per 100 WBC 0 X 10*3/uL (0.00-0.01); Neutrophils # (A) 8.94 X 10*3/uL (1.80-7.70); Neutrophils % (A) 80.7 %; Platelet Count 234 X 10*3/uL (140-440); RBC 4.28 X 10*6/uL (4.10-5.20); RDW 13.8 % (11.5-14.5); WBC 11.07 X 10*3/uL (4.50-10.00)
[2023-08-27 11:12] LABS: ALT 11 U/L (8-44); AST 20 U/L (13-35); Albumin 3.4 g/dL (3.8-4.9); Alkaline Phosphatase 62 U/L (41-126); BUN/Creat Ratio 15.71 Ratio (12.00-20.00); Calcium 9.1 mg/dL (8.7-10.3); Carbon Dioxide 26.5 mmol/L (21.6-31.8); Chloride 100 mmol/L (96-109); Glucose 98 mg/dL (70-110); Potassium 3.5 mmol/L (3.5-5.5); Sodium 138 mmol/L (135-145); Total Bilirubin 0.8 mg/dL (0.3-1.2); Total Protein 5.4 g/dL (6.2-8.2)
--- NOTE | 2023-08-27 11:17 | P.PN ---
Subjective Progress Note Date: 08/27/23 Principal diagnosis: Colitis Patient doing better today. Since her abdominal cramps are much improved. She is hungry. Asking for diet. Patient relates that she was having shortness of breath along with her calf pain. No PE test has been ordered yet. Objective - Vital Signs Vital signs: Vital Signs Temp 97.8 F 08/27/23 07:00 Pulse 91 08/27/23 07:00 Resp 18 08/27/23 07:00 BP 163/72 08/27/23 07:00 Pulse Ox 91 L 08/27/23 07:00 FiO2 Intake & Output 08/26/23 08/27/23 08/27/23 18:59 06:59 18:59 Intake Total 181.426 Balance 181.426 Weight 81.647 kg 81.647 kg Intake: Intake, IV Titration 181.426 Amount Heparin Sod,Pork in 0.45% 181.426 NaCl 25,000 unit In 0.45 % NaCl 1 250ml.bag @ 12 UNITS/KG/HR 9.798 mls/hr IV .Q24H [facility] Rx#: [id number] Other: # Voids 2 # Bowel Movements 1 - Exam Abdomen: Soft, mild distention, mild left-sided tenderness - Labs CBC & Chem 7: 08/27/23 06:17 08/27/23 06:17 Labs: Abnormal Lab Results - Last 24 Hours (Table) 08/26/23 08/26/23 08/26/23 Range/Units 13:27 15:39 19:37 WBC 14.2 H 13.6 H (3.8-10.6) k/uL Neutrophils # 11.8 H (1.3-7.7) k/uL APTT (22.0-30.0) sec POC Glucose (mg/dL) 128 H (70-110) mg/dL Total Protein (6.2-8.2) g/dL Albumin (3.8-4.9) g/dL 08/26/23 08/27/23 08/27/23 Range/Units 22:38 06:17 06:17 WBC 11.07 H (3.8-10.6) k/uL Neutrophils # 8.94 H (1.3-7.7) k/uL APTT 45.2 H (22.0-30.0) sec POC Glucose (mg/dL) (70-110) mg/dL Total Protein 5.4 L (6.2-8.2) g/dL Albumin 3.4 L (3.8-4.9) g/dL 08/27/23 Range/Units 06:17 WBC (3.8-10.6) k/uL Neutrophils # (1.3-7.7) k/uL APTT 37.3 H (22.0-30.0) sec POC Glucose (mg/dL) (70-110) mg/dL Total Protein (6.2-8.2) g/dL Albumin (3.8-4.9) g/dL Assessment and Plan (1) Abdominal pain Narrative/Plan: 82-year-old female with abdominal pain. CAT scan reviewed. Findings consistent with probable ischemic colitis. Patient with acute right lower extremity DVT and wouldn't be surprised if she has recurrent PE. This could've been the etiology for the ischemic colitis. Continue empiric antibiotics. Gradually advance diet. Will follow. Current Visit: Yes Status: Acute Code(s): R10.9 - UNSPECIFIED ABDOMINAL PAIN SNOMED Code(s): 21475736
[2023-08-27 12:37] LABS: INR 1.11 sec (0.93-1.11); Prothrombin Time 11.9 sec (9.9-11.9)
--- NOTE | 2023-08-27 13:05 | P.PN ---
Subjective Progress Note Date: 08/27/23 Principal diagnosis: The patient is here essentially for diverticulitis and DVT of the lower extremity. CT angiogram for PE has been ordered. The patient does complain of mild shortness of breath. The patient is on heparin Objective - Vital Signs Vital signs: Vital Signs Temp 97.8 F 08/27/23 07:00 Pulse 91 08/27/23 07:00 Resp 18 08/27/23 07:00 BP 163/72 08/27/23 07:00 Pulse Ox 91 L 08/27/23 07:00 FiO2 Intake & Output 08/26/23 08/27/23 08/27/23 18:59 06:59 18:59 Intake Total 181.426 Balance 181.426 Weight 81.647 kg 81.647 kg Intake: Intake, IV Titration 181.426 Amount Heparin Sod,Pork in 0.45% 181.426 NaCl 25,000 unit In 0.45 % NaCl 1 250ml.bag @ 12 UNITS/KG/HR 9.798 mls/hr IV .Q24H [facility] Rx#: [id number] Other: # Voids 2 # Bowel Movements 1 - Constitutional General appearance: Present: obese - EENT Eyes: Absent: abnormal pupil - Neck Neck: Absent: lymphadenopathy - Respiratory Respiratory: bilateral: CTA - Cardiovascular Rhythm: regular Heart sounds: normal: S1, S2 Abnormal Heart Sounds: Absent: S3 Gallop - Gastrointestinal General gastrointestinal: Present: soft. Absent: tenderness - Psychiatric Psychiatric: Present: A&O x's 3 - Labs CBC & Chem 7: 08/27/23 06:17 08/27/23 06:17 Labs: Abnormal Lab Results - Last 24 Hours (Table) 08/26/23 08/26/23 08/26/23 Range/Units 13:27 15:39 19:37 WBC 14.2 H 13.6 H (3.8-10.6) k/uL Neutrophils # 11.8 H (1.3-7.7) k/uL APTT (22.0-30.0) sec POC Glucose (mg/dL) 128 H (70-110) mg/dL Total Protein (6.2-8.2) g/dL Albumin (3.8-4.9) g/dL 08/26/23 08/27/23 08/27/23 Range/Units 22:38 06:17 06:17 WBC 11.07 H (3.8-10.6) k/uL Neutrophils # 8.94 H (1.3-7.7) k/uL APTT 45.2 H (22.0-30.0) sec POC Glucose (mg/dL) (70-110) mg/dL Total Protein 5.4 L (6.2-8.2) g/dL Albumin 3.4 L (3.8-4.9) g/dL 08/27/23 Range/Units 06:17 WBC (3.8-10.6) k/uL Neutrophils # (1.3-7.7) k/uL APTT 37.3 H (22.0-30.0) sec POC Glucose (mg/dL) (70-110) mg/dL Total Protein (6.2-8.2) g/dL Albumin (3.8-4.9) g/dL Assessment and Plan (1) DVT (deep venous thrombosis) Current Visit: Yes Status: Acute Code(s): I82.409 - ACUTE EMBOLISM AND THOMBOS UNSP DEEP VN UNSP LOWER EXTREMITY SNOMED Code(s): 124766379 (2) Diabetes Current Visit: Yes Status: Acute Code(s): E11.9 - TYPE 2 DIABETES MELLITUS WITHOUT COMPLICATIONS SNOMED Code(s): 08944611 (3) Abdominal pain Current Visit: Yes Status: Acute Code(s): R10.9 - UNSPECIFIED ABDOMINAL PAIN SNOMED Code(s): 16319723 (4) Diverticulitis Current Visit: Yes Status: Acute Code(s): K57.92 - DVTRCLI OF INTEST, PART UNSP, W/O PERF OR ABSCESS W/O BLEED SNOMED Code(s): 043429352 Plan: The patient will continue advancing diet. CT of the chest is pending. Check CBC and CMP in a.m. What sugar closely
[2023-08-27] MEDS: SODIUM CHLORIDE 0.9% 1,000 ML IV SCH ×2 (16:54→17:12)
[2023-08-27] MEDS: HEPARIN SOD,PORK IN 0.45% NACL 25,000 UNIT in 0.45% NACL 1 250ML.BAG IV SCH (17:10)
--- NOTE | 2023-08-27 17:40 | P.CONS ---
History of Present Illness - Reason for Consult Consult date: 08/26/23 Diverticulitis Requesting physician: Audi Taylor - Chief Complaint Abdominal pain x 1 day - History of Present Illness Patient is a 82-year-old female with a past medical history significant for diabetes mellitus hypertension hyperlipidemia sleep apnea patient presenting to the ER for evaluation of lower abdominal pain that started tonight after eating her dinner pain has been mostly lower abdominal area describing it to be sharp moderate intensity and the patient was feeling something was pushing down afterward the patient noticed to have some blood in the stools with the same and the patient was brought to the hospital the patient denies having any nausea vomiting no chest pain shortness of breath or cough patient also noticed to have increasing swelling to the right lower extremity with recent the patient was evaluated on presentation to the hospital the patient was afebrile and no fever have been called subsequently patient was not tachycardic hypotensive or hypoxic patient did have a white count of 12.5 which is up to 13.6 with a left shift creatinine 0.65 electrolytes are normal lipase was normal urine has been negative patient did have a CT of abdominal pelvis mild to moderate stool scattered throughout the colon no evidence of obstruction question of filling defect within the cecum diffuse colonic wall thickening from mid to distal transverse colon to the distal sigmoid with slight rounding pericolonic inflammatory changes patient also have a right lower extremity venous Doppler that was positive for DVT, patient was started on Rocephin infectious he was consulted for further management of antibiotic therapy Review of Systems Positive point and negatives has been mentioned in the HPI, complete review of systems was performed and all other systems are negative Past Medical History Past Medical History: Asthma, Diabetes Mellitus, Hyperlipidemia, Hypertension, Sleep Apnea/CPAP/BIPAP, Thyroid Disorder History of Any Multi-Drug Resistant Organisms: None Reported Past Surgical History: Breast Surgery, Hysterectomy, Orthopedic Surgery, Tonsillectomy Additional Past Surgical History / Comment(s): BILATERAL CATARACT SURGERY BILATERAL BUNYONECTOMY GREAT TOE Past Anesthesia/Blood Transfusion Reactions: No Reported Reaction Past Psychological History: No Psychological Hx Reported Smoking Status: Never smoker Past Alcohol Use History: None Reported Past Drug Use History: None Reported Medications and Allergies Home Medications Medication Instructions Recorded Confirmed Type Levothyroxine Sodium [Synthroid] 112 mcg PO DAILY 03/13/16 08/26/23 History Montelukast [Singulair] 10 mg PO HS 03/13/16 08/26/23 History Spironolactone-Hctz 25-25Mg 2 tab PO DAILY 03/13/16 08/26/23 History [Aldactazide 25-25 MG] Albuterol Sulfate [Albuterol 2 puff PO RT-QID PRN 08/26/23 08/26/23 History Sulfate Hfa] Budesonide/Formoterol Fumarate 2 puff INHALATION RT-BID 08/26/23 08/26/23 History [Symbicort 160-4.5 Mcg Inhaler] Ibuprofen [Advil] 200 mg PO Q8HR PRN 08/26/23 08/26/23 History Losartan [Cozaar] 12.5 mg PO HS 08/26/23 08/26/23 History Rosuvastatin [Crestor] 10 mg PO HS 08/26/23 08/26/23 History Tirzepatide [Mounjaro] 7.5 mg SQ TH 08/26/23 08/26/23 History Allergies Allergy/AdvReac Type Severity Reaction Status Date / Time adhesive tape Allergy Skin Tears Verified 08/26/23 12: - Paper tape OK amoxicillin Allergy Rash/Hives Verified 08/26/23 12:13 Physical Exam Vitals: Vital Signs Temp Pulse Resp BP Pulse Ox 08/26/23 14:01 73 18 112/64 93 L 08/26/23 10:57 63 18 107/70 95 08/26/23 07:29 97.8 F 77 18 151/70 97 Intake and Output 08/26/23 08/26/23 08/26/23 06:59 14:59 22:59 Other: Weight 81.647 kg GENERAL DESCRIPTION: Elderly female lying in bed, no distress. No tachypnea or accessory muscle of respiration use. HEENT: Shows Pallor , no scleral icterus. Oral mucous membrane is dry. No pharyngeal erythema or thrush NECK: Trachea central, no thyromegaly. LUNGS: Unlabored breathing. Clear to auscultation anteriorly. No wheeze or crackle. HEART: S1, S2, regular rate and rhythm. No loud murmur ABDOMEN: Soft, mild lower abdominal tenderness EXTREMITIES: No edema of feet. SKIN: No rash, no masses palpable. NEUROLOGICAL: The patient is awake, alert, oriented x3, mood and affect normal. Results CBC & Chem 7: 08/27/23 06:17 08/27/23 06:17 Labs: Abnormal Lab Results - Last 24 Hours (Table) 08/26/23 08/26/23 08/26/23 Range/Units 08:30 08:30 09:32 WBC 12.5 H (3.8-10.6) k/uL Plt Count 146 L (150-450) k/uL Neutrophils # 10.8 H (1.3-7.7) k/uL Lymphocytes # 0.9 L (1.0-4.8) k/uL Sodium 131 L (137-145) mmol/L Chloride 94 L (98-107) mmol/L BUN 21 H (7-17) mg/dL Glucose 141 H (74-99) mg/dL POC Glucose (mg/dL) (70-110) mg/dL Urine Appearance Cloudy H (Clear) Ur Leukocyte Esterase Small H (Negative) Ur Squamous Epith Cells 9 H (0-4) /hpf Urine Bacteria Rare H (None) /hpf Urine Mucus Rare H (None) /hpf 08/26/23 Range/Units 13:27 WBC (3.8-10.6) k/uL Plt Count (150-450) k/uL Neutrophils # (1.3-7.7) k/uL Lymphocytes # (1.0-4.8) k/uL Sodium (137-145) mmol/L Chloride (98-107) mmol/L BUN (7-17) mg/dL Glucose (74-99) mg/dL POC Glucose (mg/dL) 128 H (70-110) mg/dL Urine Appearance (Clear) Ur Leukocyte Esterase (Negative) Ur Squamous Epith Cells (0-4) /hpf Urine Bacteria (None) /hpf Urine Mucus (None) /hpf Assessment and Plan (1) Colitis Current Visit: Yes Status: Acute Code(s): K52.9 - NONINFECTIVE GASTROENTERITIS AND COLITIS, UNSPECIFIED SNOMED Code(s): 46630927 (2) Leukocytosis Current Visit: Yes Status: Acute Code(s): D72.829 - ELEVATED WHITE BLOOD CELL COUNT, UNSPECIFIED SNOMED Code(s): 995707418 (3) Penicillin allergy Current Visit: Yes Status: Acute Code(s): Z88.0 - ALLERGY STATUS TO PENICILLIN SNOMED Code(s): 19150021 Plan: 1patient presented hospital with abdominal pain and also have hematochezia with evidence of inflammation from mid transverse colon to sigmoid colon with a question of ischemic versus infectious colitis patient did have significant diarrhea to be suspicious for infectious colitis but not entirely excluded 2-we will obtain stool culture and stool for C. difficile 3-patient with a penicillin allergy that would limit the number antibiotics safe to use 4-we will give the patient Rocephin add Flagyl and monitor clinical course closely Multiple questions concern answered We will follow on clinical condition and cultures to further adjust medication if needed Thank you for this consultation we will follow the patient along with you Dictation was produced using [employer] dictation software. please excuse any grammatical, word or spelling errors. Time with Patient: Greater than 30
--- NOTE | 2023-08-27 17:43 | P.PN ---
Subjective Progress Note Date: 08/27/23 Principal diagnosis: Reason for follow-up is colitis leukocytosis Patient is a 82-year-old female with a past medical history significant for diabetes mellitus hypertension hyperlipidemia sleep apnea patient presenting to the ER for evaluation of lower abdominal pain and hematochezia CT of abdominal pelvis mild to moderate stool scattered throughout the colon no evidence of obstruction question of filling defect within the cecum diffuse colonic wall thickening from mid to distal transverse colon to the distal sigmoid with slight rounding pericolonic inflammatory changes concerning for colitis questionably ischemic On today's evaluation that is 08/27/2023 patient denies having any fever or any chills, the patient is breathing comfortably on room air patient abdominal pain has improved denies any further bowel movement or hematochezia did have 1 loose stool yesterday no chest pain shortness of breath or cough Objective - Vital Signs Vital signs: Vital Signs Temp 97.8 F 08/27/23 07:00 Pulse 91 08/27/23 07:00 Resp 18 08/27/23 07:00 BP 163/72 08/27/23 07:00 Pulse Ox 91 L 08/27/23 07:00 FiO2 Intake & Output 08/26/23 08/27/23 08/27/23 18:59 06:59 18:59 Intake Total 181.426 Balance 181.426 Weight 81.647 kg 81.647 kg Intake: Intake, IV Titration 181.426 Amount Heparin Sod,Pork in 0.45% 181.426 NaCl 25,000 unit In 0.45 % NaCl 1 250ml.bag @ 12 UNITS/KG/HR 9.798 mls/hr IV .Q24H [facility] Rx#: [id number] Other: # Voids 2 # Bowel Movements 1 - Exam GENERAL DESCRIPTION: An elderly female lying in bed in no distress RESPIRATORY SYSTEM: Unlabored breathing , decreased breath sounds at bases HEART: S1 S2 regular rate and rhythm , ABDOMEN: Soft , no tenderness EXTREMITIES: No edema feet - Labs CBC & Chem 7: 08/27/23 06:17 08/27/23 06:17 Labs: Abnormal Lab Results - Last 24 Hours (Table) 08/26/23 08/26/23 08/26/23 Range/Units 13:27 15:39 19:37 WBC 14.2 H 13.6 H (3.8-10.6) k/uL Neutrophils # 11.8 H (1.3-7.7) k/uL APTT (22.0-30.0) sec POC Glucose (mg/dL) 128 H (70-110) mg/dL Total Protein (6.2-8.2) g/dL Albumin (3.8-4.9) g/dL 08/26/23 08/27/23 08/27/23 Range/Units 22:38 06:17 06:17 WBC 11.07 H (3.8-10.6) k/uL Neutrophils # 8.94 H (1.3-7.7) k/uL APTT 45.2 H (22.0-30.0) sec POC Glucose (mg/dL) (70-110) mg/dL Total Protein 5.4 L (6.2-8.2) g/dL Albumin 3.4 L (3.8-4.9) g/dL 08/27/23 Range/Units 06:17 WBC (3.8-10.6) k/uL Neutrophils # (1.3-7.7) k/uL APTT 37.3 H (22.0-30.0) sec POC Glucose (mg/dL) (70-110) mg/dL Total Protein (6.2-8.2) g/dL Albumin (3.8-4.9) g/dL Assessment and Plan (1) Colitis Current Visit: Yes Status: Acute Code(s): K52.9 - NONINFECTIVE GASTROENTERITIS AND COLITIS, UNSPECIFIED SNOMED Code(s): 70517736 (2) Leukocytosis Current Visit: Yes Status: Acute Code(s): D72.829 - ELEVATED WHITE BLOOD CELL COUNT, UNSPECIFIED SNOMED Code(s): 266976749 (3) Penicillin allergy Current Visit: Yes Status: Acute Code(s): Z88.0 - ALLERGY STATUS TO PENICILLIN SNOMED Code(s): 83853010 Plan: 1patient presented hospital with abdominal pain and also have hematochezia with evidence of inflammation from mid transverse colon to sigmoid colon with a question of ischemic versus infectious colitis patient did have significant diarrhea low clinical suspicious for infectious colitis but not entirely excluded 2stool studies are currently pending 3patient to continue with Rocephin and Flagyl and will monitor clinical course closely Dictation was produced using dragon dictation software. please excuse any grammatical, word or spelling errors.
[2023-08-27] MEDS: LOSARTAN 25 MG TAB PO SCH (20:20)
[2023-08-27] MEDS: MONTELUKAST 10 MG TAB PO SCH (20:20)
[2023-08-27] MEDS: ATORVASTATIN 20 MG TAB PO SCH (20:25)
[2023-08-28] MEDS: metroNIDAZOLE-NS PMX 500 MG in SALINE 1 100ML.BAG IVPB SCH ×4 (00:05→23:26)
[2023-08-28] MEDS: LEVOTHYROXINE 112 MCG TAB PO SCH (06:51)
[2023-08-28] MEDS: SODIUM CHLORIDE 0.9% 1,000 ML IV SCH ×2 (06:52→18:03)
[2023-08-28] MEDS: SYMBICORT 160-4.5 MCG INHALER INHALATION SCH ×2 (07:48→21:23)
--- NOTE | 2023-08-28 08:23 | CT ---
EXAMINATION TYPE: CT chest angio for PE CT DLP: 349.30 mGycm, Automated exposure control for dose reduction was used. DATE OF EXAM: 08/27/2023 12:25 PM COMPARISON: 10/28/2018 CLINICAL INDICATION:Female, 82 years old with history of DVT with shortness of breath; DVT WITH SOB TECHNIQUE/CONTRAST: CTA scan of the thorax is performed without and with IV Contrast, patient injected with 100 ml mL of Isovue 370, MIP images are created and reviewed these are created on a separate workstation.. FINDINGS: Pulmonary Artery: There are filling defects within bilateral pulmonary arterial vasculature bilateral ly involving all the lobes of the lung. Lungs/Pleura: No evidence of focal consolidation, pleural effusion or pneumothorax. Airway: Large airways are patent. Heart: There is mildly enlarged for size. Coronary artery atherosclerosis is mild. Vasculature: Mild atherosclerotic calcifications are present throughout the aorta and its branches. Mediastinum: No gross evidence of adenopathy. Musculoskeletal: Mild degenerative disc disease changes are present throughout the thoracolumbar spin e. Severe degeneration changes of the shoulder left greater than right. Soft Tissues: Unremarkable. Lower neck: No significant findings. Upper Abdomen: No significant findings. IMPRESSION: Bilateral pulmonary emboli. No CT evidence of right heart strain at this time. Correlate with cardiac markers. Findings communicated to Dr. Heron Valdivia on 08/28/2023 8:[address] Jacobo Caro.
[2023-08-28] MEDS: SPIRONOLACTONE-HCTZ 25-25MG 1 EACH TAB PO SCH (08:49)
--- NOTE | 2023-08-28 09:33 | P.PN ---
Subjective Principal diagnosis: The patient is here essentially for diverticulitis and DVT of the lower extremity. CT angiogram for PE has been ordered. The patient does complain of mild shortness of breath. The patient is on heparin. CT does show bilateral pulmonary emboli. Objective - Vital Signs Vital signs: Vital Signs Temp 97.9 F 08/28/23 07:00 Pulse 78 08/28/23 07:00 Resp 16 08/28/23 07:00 BP 132/75 08/28/23 07:00 Pulse Ox 92 L 08/28/23 07:00 FiO2 Intake & Output 08/27/23 08/28/23 08/28/23 18:59 06:59 18:59 Intake Total 374.858 102.117 Balance 374.858 102.117 Intake: Intake, IV Titration 256.858 102.117 Amount Heparin Sod,Pork in 0.45% 256.858 102.117 NaCl 25,000 unit In 0.45 % NaCl 1 250ml.bag @ 12 UNITS/KG/HR 9.798 mls/hr IV .Q24H [facility] Rx#: [id number] Oral 118 Other: # Voids 1 3 # Bowel Movements 1 - Constitutional General appearance: Present: cooperative - Neck Neck: Absent: lymphadenopathy - Respiratory Respiratory: bilateral: diminished - Cardiovascular Rhythm: regular Heart sounds: normal: S1, S2 Abnormal Heart Sounds: Absent: S3 Gallop - Gastrointestinal General gastrointestinal: Present: soft. Absent: tenderness - Labs CBC & Chem 7: 08/27/23 06:17 08/27/23 06:17 Labs: Abnormal Lab Results - Last 24 Hours (Table) 08/27/23 08/27/23 08/27/23 Range/Units 06:17 06:17 16:56 WBC 11.07 H (4.50-10.00) X 10*3/uL Neutrophils # 8.94 H (1.80-7.70) X 10*3/uL APTT 42.9 H (22.0-30.0) sec Total Protein 5.4 L (6.2-8.2) g/dL Albumin 3.4 L (3.8-4.9) g/dL 08/28/23 08/28/23 Range/Units 00:03 07:47 WBC (4.50-10.00) X 10*3/uL Neutrophils # (1.80-7.70) X 10*3/uL APTT 111.9 H* 76.5 H (22.0-30.0) sec Total Protein (6.2-8.2) g/dL Albumin (3.8-4.9) g/dL Microbiology - Last 24 Hours (Table) 08/26/23 13:45 Blood Culture - Preliminary Blood 08/26/23 14:00 Blood Culture - Preliminary Blood Assessment and Plan (1) DVT (deep venous thrombosis) Current Visit: Yes Status: Acute Code(s): I82.409 - ACUTE EMBOLISM AND THOMBOS UNSP DEEP VN UNSP LOWER EXTREMITY SNOMED Code(s): 572874179 (2) Diabetes Current Visit: Yes Status: Acute Code(s): E11.9 - TYPE 2 DIABETES MELLITUS WITHOUT COMPLICATIONS SNOMED Code(s): 66507823 (3) Abdominal pain Current Visit: Yes Status: Acute Code(s): R10.9 - UNSPECIFIED ABDOMINAL PAIN SNOMED Code(s): 01466098 (4) Diverticulitis Current Visit: Yes Status: Acute Code(s): K57.92 - DVTRCLI OF INTEST, PART UNSP, W/O PERF OR ABSCESS W/O BLEED SNOMED Code(s): 043935958 Plan: The patient will continue advancing diet. We'll transfer to 3 S. Check CBC and CMP in a.m. Continue antibiotic treatment. Hopefully transition to oral anticoagulation per Vascular surgery. Time with Patient: Greater than 30
--- NOTE | 2023-08-28 09:41 | P.PN ---
Subjective Progress Note Date: 08/28/23 Principal diagnosis: DVT, pulmonary embolism Patient is seen and examined this morning as a follow-up. She has a right lower extremity DVT. She was complaining of some shortness of breath and underwent CT angiogram of the chest which does show bilateral pulmonary emboli without any right heart strain. Patient is sitting up at the side of the bed. She denies any shortness of breath at rest. She appears comfortable. No pain in the right lower extremity. No rectal bleeding. Objective - Vital Signs Vital signs: Vital Signs Temp 97.9 F 08/28/23 07:00 Pulse 78 08/28/23 07:00 Resp 16 08/28/23 07:00 BP 132/75 08/28/23 07:00 Pulse Ox 92 L 08/28/23 07:00 FiO2 Intake & Output 08/27/23 08/28/23 08/28/23 18:59 06:59 18:59 Intake Total 374.858 102.117 Balance 374.858 102.117 Intake: Intake, IV Titration 256.858 102.117 Amount Heparin Sod,Pork in 0.45% 256.858 102.117 NaCl 25,000 unit In 0.45 % NaCl 1 250ml.bag @ 12 UNITS/KG/HR 9.798 mls/hr IV .Q24H [facility] Rx#: [id number] Oral 118 Other: # Voids 1 3 # Bowel Movements 1 - Exam General appearance: The patient is alert, oriented, appears in no acute distress. HET: Head is normocephalic and atraumatic. Neck: Supple. Heart: Regular. Lungs: Equal expansion, normal respiratory effort. Abdomen: Soft, nontender, nondistended. Extremities: Normal skin color and turgor. Right lower extremity with mild swelling. Palpable pulses. Neurological: No focal deficits. Strength and sensation are grossly intact. - Labs CBC & Chem 7: 08/27/23 06:17 08/27/23 06:17 Labs: Abnormal Lab Results - Last 24 Hours (Table) 08/27/23 08/27/23 08/27/23 Range/Units 06:17 06:17 16:56 WBC 11.07 H (4.50-10.00) X 10*3/uL Neutrophils # 8.94 H (1.80-7.70) X 10*3/uL APTT 42.9 H (22.0-30.0) sec Total Protein 5.4 L (6.2-8.2) g/dL Albumin 3.4 L (3.8-4.9) g/dL 08/28/23 08/28/23 Range/Units 00:03 07:47 WBC (4.50-10.00) X 10*3/uL Neutrophils # (1.80-7.70) X 10*3/uL APTT 111.9 H* 76.5 H (22.0-30.0) sec Total Protein (6.2-8.2) g/dL Albumin (3.8-4.9) g/dL Microbiology - Last 24 Hours (Table) 08/26/23 13:45 Blood Culture - Preliminary Blood 08/26/23 14:00 Blood Culture - Preliminary Blood Assessment and Plan Assessment: 1. Right lower extremity deep vein thrombosis 2. Bilateral pulmonary emboli 3. Acute Colitis 4. Hypothyroidism 5. Asthma 6. Hypertension 7. Hyperlipidemia Plan: There is no indication for IVC filter. Patient is tolerating anticoagulation without any symptoms of GI bleed. Recommend compression stocking to right lower extremity, elevate right lower extremity. CT angiogram reviewed, bilateral pulmonary emboli without any evidence of right heart strain. Patient may transition to oral anticoagulation. Will start Eliquis 10 mg twice a day. She is clear from vascular surgery for discharge. Patient can follow-up with vascular surgery in 1-2 weeks. The impression and plan of care has been dictated as directed. Dr. Gilliland I performed a history and examination of this patient, discussed the same with the dictator. I agree with the dictator's note ,documented as a scribe. Any additional findings or plans will be noted.
[2023-08-28] MEDS: Apixaban Initiation Dose--VTE 5 MG TAB PO SCH ×2 (10:47→20:32)
[2023-08-28 11:01] LABS: HCT 41.2 % (37.2-46.3); HGB 14.2 g/dL (12.0-15.0); MCHC 34.5 g/dL (32.0-37.0); MCV 86.9 FL (80.0-97.0); Mean Platelet Volume 10.3 FL (9.5-12.2); NRBC Per 100 WBC 0 X 10*3/uL (0.00-0.01); Platelet Count 292 X 10*3/uL (140-440); RBC 4.74 X 10*6/uL (4.10-5.20); RDW 13.7 % (11.5-14.5); WBC 11.21 X 10*3/uL (4.50-10.00)
[2023-08-28 12:05] LABS: ALT 17 U/L (8-44); AST 22 U/L (13-35); Albumin 3.9 g/dL (3.8-4.9); Albumin/Globulin Ratio 1.56 Ratio (1.60-3.17); Alkaline Phosphatase 69 U/L (41-126); BUN/Creat Ratio 11.71 Ratio (12.00-20.00); Blood Urea Nitrogen 8.2 mg/dL (9.0-27.0); Calcium 9.3 mg/dL (8.7-10.3); Carbon Dioxide 21.9 mmol/L (21.6-31.8); Chloride 98 mmol/L (96-109); Globulin 2.5 g/dL (1.6-3.3); Glucose 119 mg/dL (70-110); Potassium 3.7 mmol/L (3.5-5.5); Sodium 137 mmol/L (135-145); Total Bilirubin 0.8 mg/dL (0.3-1.2); Total Protein 6.4 g/dL (6.2-8.2)
--- NOTE | 2023-08-28 14:48 | P.PN ---
Subjective Progress Note Date: 08/28/23 Principal diagnosis: Colitis Patient doing well today. Small bowel movement. Small amount of blood within the bowel movement. No significant abdominal pain. Objective - Vital Signs Vital signs: Vital Signs Temp 97.9 F 08/28/23 07:00 Pulse 78 08/28/23 07:00 Resp 16 08/28/23 07:00 BP 132/75 08/28/23 07:00 Pulse Ox 92 L 08/28/23 07:00 FiO2 Intake & Output 08/27/23 08/28/23 08/28/23 18:59 06:59 18:59 Intake Total 374.858 102.117 620 Balance 374.858 102.117 620 Intake: Intake, IV Titration 256.858 102.117 Amount Heparin Sod,Pork in 0.45% 256.858 102.117 NaCl 25,000 unit In 0.45 % NaCl 1 250ml.bag @ 12 UNITS/KG/HR 9.798 mls/hr IV .Q24H [facility] Rx#: [id number] Oral 118 620 Other: # Voids 1 3 2 # Bowel Movements 1 - Exam Abdomen: Soft, mild distention, mild left-sided tenderness - Labs CBC & Chem 7: 08/28/23 07:47 08/28/23 07:47 Labs: Abnormal Lab Results - Last 24 Hours (Table) 08/27/23 08/28/23 08/28/23 Range/Units 16:56 00:03 07:47 WBC 11.21 H (4.50-10.00) X 10*3/uL APTT 42.9 H 111.9 H* (22.0-30.0) sec Anion Gap (4.00-12.00) mmol/L BUN (9.0-27.0) mg/dL BUN/Creatinine Ratio (12.00-20.00) Ratio Glucose (70-110) mg/dL Albumin/Globulin Ratio (1.60-3.17) Ratio 08/28/23 08/28/23 Range/Units 07:47 07:47 WBC (4.50-10.00) X 10*3/uL APTT 76.5 H (22.0-30.0) sec Anion Gap 17.10 H (4.00-12.00) mmol/L BUN 8.2 L (9.0-27.0) mg/dL BUN/Creatinine Ratio 11.71 L (12.00-20.00) Ratio Glucose 119 H (70-110) mg/dL Albumin/Globulin Ratio 1.56 L (1.60-3.17) Ratio Microbiology - Last 24 Hours (Table) 08/26/23 13:45 Blood Culture - Preliminary Blood 08/26/23 14:00 Blood Culture - Preliminary Blood Assessment and Plan (1) Abdominal pain Narrative/Plan: Patient doing well today. CAT scan chest for PE did show bilateral pulmonary embolism. Patient remains on anticoagulation. Vascular surgery was notified. No shortness of breath currently. Continue empiric Biotics. Continue advancing diet. Current Visit: Yes Status: Acute Code(s): R10.9 - UNSPECIFIED ABDOMINAL PAIN SNOMED Code(s): 10832916
--- NOTE | 2023-08-28 16:35 | P.PN ---
Subjective Progress Note Date: 08/28/23 Principal diagnosis: Reason for follow-up is colitis leukocytosis Patient is a 82-year-old female with a past medical history significant for diabetes mellitus hypertension hyperlipidemia sleep apnea patient presenting to the ER for evaluation of lower abdominal pain and hematochezia CT of abdominal pelvis mild to moderate stool scattered throughout the colon no evidence of obstruction question of filling defect within the cecum diffuse colonic wall thickening from mid to distal transverse colon to the distal sigmoid with slight rounding pericolonic inflammatory changes concerning for colitis questionably ischemic On today's evaluation that is 08/28/2023 the patient remains to be afebrile, the patient is breathing comfortably room air no chest pain shortness of the cough no nausea vomiting no abdominal pain and denies any further bleeding per rectum. Patient did have white count of 11.21, creatinine 0.7 blood cultures so far negative Objective - Vital Signs Vital signs: Vital Signs Temp 97.9 F 08/28/23 07:00 Pulse 78 08/28/23 07:00 Resp 16 08/28/23 07:00 BP 132/75 08/28/23 07:00 Pulse Ox 92 L 08/28/23 07:00 FiO2 Intake & Output 08/27/23 08/28/23 08/28/23 18:59 06:59 18:59 Intake Total 374.858 102.117 240 Balance 374.858 102.117 240 Intake: Intake, IV Titration 256.858 102.117 Amount Heparin Sod,Pork in 0.45% 256.858 102.117 NaCl 25,000 unit In 0.45 % NaCl 1 250ml.bag @ 12 UNITS/KG/HR 9.798 mls/hr IV .Q24H [facility] Rx#: [id number] Oral 118 240 Other: # Voids 1 3 # Bowel Movements 1 - Exam GENERAL DESCRIPTION: An elderly female lying in bed in no distress RESPIRATORY SYSTEM: Unlabored breathing , decreased breath sounds at bases HEART: S1 S2 regular rate and rhythm , ABDOMEN: Soft , no tenderness EXTREMITIES: Left lower extremity wound postsurgical with no slough tissue surrounding redness - Labs CBC & Chem 7: 08/28/23 07:47 08/28/23 07:47 Labs: Abnormal Lab Results - Last 24 Hours (Table) 08/27/23 08/28/23 08/28/23 Range/Units 16:56 00:03 07:47 WBC 11.21 H (4.50-10.00) X 10*3/uL APTT 42.9 H 111.9 H* (22.0-30.0) sec Anion Gap (4.00-12.00) mmol/L BUN (9.0-27.0) mg/dL BUN/Creatinine Ratio (12.00-20.00) Ratio Glucose (70-110) mg/dL Albumin/Globulin Ratio (1.60-3.17) Ratio 08/28/23 08/28/23 Range/Units 07:47 07:47 WBC (4.50-10.00) X 10*3/uL APTT 76.5 H (22.0-30.0) sec Anion Gap 17.10 H (4.00-12.00) mmol/L BUN 8.2 L (9.0-27.0) mg/dL BUN/Creatinine Ratio 11.71 L (12.00-20.00) Ratio Glucose 119 H (70-110) mg/dL Albumin/Globulin Ratio 1.56 L (1.60-3.17) Ratio Microbiology - Last 24 Hours (Table) 08/26/23 13:45 Blood Culture - Preliminary Blood 08/26/23 14:00 Blood Culture - Preliminary Blood Assessment and Plan (1) Colitis Current Visit: Yes Status: Acute Code(s): K52.9 - NONINFECTIVE GASTROENTERITIS AND COLITIS, UNSPECIFIED SNOMED Code(s): 95252252 (2) Leukocytosis Current Visit: Yes Status: Acute Code(s): D72.829 - ELEVATED WHITE BLOOD CELL COUNT, UNSPECIFIED SNOMED Code(s): 200231092 (3) Penicillin allergy Current Visit: Yes Status: Acute Code(s): Z88.0 - ALLERGY STATUS TO PENICILLIN SNOMED Code(s): 71105510 (4) Leg wound, left Current Visit: Yes Status: Acute Code(s): S81.802A - UNSPECIFIED OPEN WOUND, LEFT LOWER LEG, INITIAL ENCOUNTER SNOMED Code(s): 759102578 Plan: 1patient presented hospital with abdominal pain and also have hematochezia with evidence of inflammation from mid transverse colon to sigmoid colon with a question of ischemic versus infectious colitis patient did have significant diarrhea low clinical suspicious for infectious colitis but not entirely excluded 2Patient with left lower extremity wound for surgery with no cellulitis or slough tissue local wound care with a dry Aquacel dressing change every 48 hour 3patient to continue with Rocephin and Flagyl and will monitor clinical course closely Dictation was produced using [employer] dictation software. please excuse any grammatical, word or spelling errors. Time with Patient: Less than 30
[2023-08-28] MEDS ORDERED: MOUNJARO SQ SCH (17:00)
[2023-08-28] MEDS: ACETAMINOPHEN TAB 325 MG TAB PO PRN (18:02)
[2023-08-28] MEDS: MONTELUKAST 10 MG TAB PO SCH (20:30)
[2023-08-28] MEDS: ATORVASTATIN 20 MG TAB PO SCH (20:30)
[2023-08-28] MEDS: LOSARTAN 25 MG TAB PO SCH (20:30)
[2023-08-29] MEDS: LEVOTHYROXINE 112 MCG TAB PO SCH (06:17)
[2023-08-29] MEDS: ACETAMINOPHEN TAB 325 MG TAB PO PRN (06:18)
[2023-08-29] MEDS: SODIUM CHLORIDE 0.9% 1,000 ML IV SCH (06:19)
[2023-08-29] MEDS: SYMBICORT 160-4.5 MCG INHALER INHALATION SCH (08:24)
[2023-08-29] MEDS: metroNIDAZOLE-NS PMX 500 MG in SALINE 1 100ML.BAG IVPB SCH (08:34)
[2023-08-29] MEDS: Apixaban Initiation Dose--VTE 5 MG TAB PO SCH (08:35)
[2023-08-29] MEDS: SPIRONOLACTONE-HCTZ 25-25MG 1 EACH TAB PO SCH (08:35)
[2023-08-29 09:06] VITALS: BP 137/76; PULSE 72; RESP 17; TEMP 97.3
--- NOTE | 2023-08-29 10:04 | P.PN ---
Subjective Progress Note Date: 08/29/23 Principal diagnosis: Colitis Patient doing well today. Denies shortness of breath. No abdominal pain. She is tolerating diet. Objective - Vital Signs Vital signs: Vital Signs Temp 97.3 F L 08/29/23 08:30 Pulse 72 08/29/23 08:30 Resp 17 08/29/23 08:30 BP 137/76 08/29/23 08:30 Pulse Ox 94 L 08/29/23 08:30 FiO2 Intake & Output 08/28/23 08/29/23 08/29/23 18:59 06:59 18:59 Intake Total 738 75 236 Balance 738 75 236 Intake: IV 75 0.9 75 Oral 738 236 Other: Voiding Method Toilet # Voids 2 1 - Exam Abdomen: Soft, nontender, nondistended - Labs CBC & Chem 7: 08/28/23 07:47 08/28/23 07:47 Labs: Abnormal Lab Results - Last 24 Hours (Table) 08/28/23 08/28/23 Range/Units 07:47 07:47 WBC 11.21 H (4.50-10.00) X 10*3/uL Anion Gap 17.10 H (4.00-12.00) mmol/L BUN 8.2 L (9.0-27.0) mg/dL BUN/Creatinine Ratio 11.71 L (12.00-20.00) Ratio Glucose 119 H (70-110) mg/dL Albumin/Globulin Ratio 1.56 L (1.60-3.17) Ratio Microbiology - Last 24 Hours (Table) 08/26/23 13:45 Blood Culture - Preliminary Blood 08/26/23 14:00 Blood Culture - Preliminary Blood Assessment and Plan (1) Abdominal pain Narrative/Plan: 82 female with left-sided colitis. Patient found have DVT and PE. On anticoagulation. Tolerating diet. She is having small stools. Plan outpatient colonoscopy. We'll sign off. Please reconsult if needed. Current Visit: Yes Status: Acute Code(s): R10.9 - UNSPECIFIED ABDOMINAL PAIN SNOMED Code(s): 17551719
--- NOTE | 2023-08-29 10:18 | P.DS ---
Providers Date of admission: 08/26/23 12:22 Attending physician: Michael Martinez Consults: 08/26/23 14:23 Consult Physician Routine Consulting Provider: Emerita Gilliland Consult Reason/Comments: Right lower extremity DVT Do you want consulting provider notified?: Yes 08/26/23 14:24 Consult Physician Routine Consulting Provider: Gelacio Chester Consult Reason/Comments: Pancolitis Do you want consulting provider notified?: Yes Primary care physician: Michael Martinez - Discharge Diagnosis(es) (1) DVT (deep venous thrombosis) Current Visit: Yes Status: Acute (2) Diabetes Current Visit: Yes Status: Acute (3) Abdominal pain Current Visit: Yes Status: Acute (4) Diverticulitis Current Visit: Yes Status: Acute Hospital Course: The patient [id number] white female admitted for colitis found to have DVT and bilateral pulmonary emboli. The patient was started on appropriate antibiotic treatment is not tolerating low-residue diet. The patient was evaluated with vascular surgery and will be treated with standard anticoagulant. We had a long discussion regarding risks and benefits of her treatment and she is stable for discharge. We'll follow-up in about a week. Patient Condition at Discharge: Stable Plan - Discharge Summary New Discharge Prescriptions: New Apixaban [Eliquis Starter Pack (for VTE)] 5 - 10 mg PO DIRECTED 30 Days #1 each cefUROXime axetiL [Ceftin] 500 mg PO BID 7 Days #14 tab Apixaban Initiation Dose--VTE [Eliquis Initiation Dosing for VTE Treatment] 10 mg PO BID tab metroNIDAZOLE [Flagyl] 500 mg PO TID #7 tab Continue Levothyroxine Sodium [Synthroid] 112 mcg PO DAILY Spironolactone-Hctz 25-25Mg [Aldactazide 25-25 MG] 2 tab PO DAILY Montelukast [Singulair] 10 mg PO HS Ibuprofen [Advil] 200 mg PO Q8HR PRN PRN Reason: Pain Albuterol Sulfate [Albuterol Sulfate Hfa] 2 puff PO RT-QID PRN PRN Reason: Shortness Of Breath Budesonide/Formoterol Fumarate [Symbicort 160-4.5 Mcg Inhaler] 2 puff INHALATION RT-BID Losartan [Cozaar] 12.5 mg PO HS Rosuvastatin [Crestor] 10 mg PO HS Tirzepatide [Mounjaro] 7.5 mg SQ TH Discharge Medication List Levothyroxine Sodium [Synthroid] 112 mcg PO DAILY 03/13/16 [History] Montelukast [Singulair] 10 mg PO HS 03/13/16 [History] Spironolactone-Hctz 25-25Mg [Aldactazide 25-25 MG] 2 tab PO DAILY 03/13/16 [History] Albuterol Sulfate [Albuterol Sulfate Hfa] 2 puff PO RT-QID PRN 08/26/23 [ History] Budesonide/Formoterol Fumarate [Symbicort 160-4.5 Mcg Inhaler] 2 puff INHALATION RT-BID 08/26/23 [History] Ibuprofen [Advil] 200 mg PO Q8HR PRN 08/26/23 [History] Losartan [Cozaar] 12.5 mg PO HS 08/26/23 [History] Rosuvastatin [Crestor] 10 mg PO HS 08/26/23 [History] Tirzepatide [Mounjaro] 7.5 mg SQ TH 08/26/23 [History] Apixaban [Eliquis Starter Pack (for VTE)] 5 - 10 mg PO DIRECTED 30 Days #1 each 08/28/23 [Rx] Apixaban Initiation Dose--VTE [Eliquis Initiation Dosing for VTE Treatment] 10 mg PO BID tab 08/29/23 [Rx] cefUROXime axetiL [Ceftin] 500 mg PO BID 7 Days #14 tab 08/29/23 [Rx] metroNIDAZOLE [Flagyl] 500 mg PO TID #7 tab 08/29/23 [Rx] Follow up Appointment(s)/Referral(s): Heron Valdivia MD [Medical Doctor] - 3 Weeks Michael Martinez MD [Primary Care Provider] - 1 Week Discharge Disposition: HOME SELF-CARE
== END 2023-08-29 11:43 | disposition home or self-care (01) | DRG 299 ==
LOC: EC 06:59 → 6NMEDSUR 12:22 → OBSVTOIN 12:22 → 6NMEDSUR 16:52 → 3SCARD 08-28 14:50
PROVIDERS: ADMIT Family Medicine; ATTEND Family Medicine
DX: I82.411 Acute embolism and thrombosis of right femoral vein (principal); I26.99 Other pulmonary embolism without acute cor pulmonale; K57.32 Diverticulitis of large intestine without perforation or abscess without bleeding; K51.511 Left sided colitis with rectal bleeding; I82.431 Acute embolism and thrombosis of right popliteal vein; E03.9 Hypothyroidism, unspecified; G47.30 Sleep apnea, unspecified; S81.802A Unspecified open wound, left lower leg, initial encounter; I10 Essential (primary) hypertension; E78.5 Hyperlipidemia, unspecified; J44.89 Other specified chronic obstructive pulmonary disease; E11.9 Type 2 diabetes mellitus without complications; Z88.0 Allergy status to penicillin; Z79.899 Other long term (current) drug therapy; Z79.890 Hormone replacement therapy; Z79.51 Long term (current) use of inhaled steroids
CPT/HCPCS: 36415; 71275; 74177; 80053; 81001; 83605; 83690; 85025; 85027; 85610; 85730; 87040; 94640; 96361; 96365; 96366; 96368; 96375; 99285

== ENCOUNTER → 2023-10-02 | Outpatient (CLI) | payer MEDICARE ==
--- NOTE | 2023-10-02 17:09 | P.PN ---
Subjective DATE: 10/02/2023 FOLLOW UP VISIT. Patient with obstructive sleep apnea hypopnea syndrome return to sleep center for follow-up visit. Information from previous visit have been reviewed. Patient is using PAP equipment every night for the whole night, getting PAP supplies in time. The patient does not have significant problems with the mask, PAP unit and humidification. [place] sleepiness scale is 3. I checked information from PAP unit. PAP unit pressure 5-10, average pressure 10 cm H2O. Usage is 100 % for more then 4 hours, average 6.4 hours per night. Leak is 28 l/m, which is in acceptable range. Apnea Hypopnea Index is 2.7, which is normal. MEDICATIONS:1. Crestor 10 mg once a day once a day 2. Eliquis 5 mg once a day 3. Symbicort 4. Levothyroxine 112 g once a day During physical exam: GENERAL: A pleasant patient without any distress. VITAL SIGNS: BP 134/75, HR 79, RR 16 , weight 179.2, temperature 97.0, oxygen saturation at room air 95 % . HEENT: PERRLA, EOMI.low position of soft palate, Mallapati 4 . NECK: Supple. No JVD. LUNGS: Clear to percussion and to auscultation. Good air exchange. No wheezing or rhonchi. HEART: S1, S2 regular. ABDOMEN: Soft and nontender. Slightly obese EXTREMITIES: No clubbing or cyanosis. [employer]: Awake, alert, and oriented x3. No focal deficit. Impressions: 1. Obstructive sleep apnea-hypopnea syndrome. Patient demonstrated great compliance with treatment, benefiting from treatment. 2. Obesity. 3. Hypothyroidism. 4. Asthma. 5. Diabetes mellitus. 6. Status post bilateral pulmonary embolism. 7. History of DVT. 8. History of cardiac arrhythmia in the past. 9. Nasal septum deviation. Plan: 1. Continue using PAP equipment every night for the whole night. 2. To change air filter at least 1-2 times per month. 3. PAP unit should stay lower then position of the head. 4. Advised patient to remove all remaining water from humidifier canister daily and make it dry after each usage. Refill canister with fresh distilled water before each usage. 5. Sleep hygiene with regular time in bed for at least 8 hours. 6. Precautions related to driving. No driving if feel any sleepiness. 7. I will maintain prescription for PAP supplies including mask, tube, filters. 8. Follow up visit in 6 months or earlier if patient has any problems. 9. Watching and losing weight. Thank you very much for allowing me to participate in the management of your patient. Germain Wasserman MD, PhD, FAASM. Diplomat of [place] [employer], Sleep Medicine Board by [place] [employer] Manager [employer] of [facility] [place]
== END ==
LOC: 3 N SLEEP 14:04
PROVIDERS: ATTEND Internal Medicine
DX: G47.33 Obstructive sleep apnea (adult) (pediatric) (principal); E03.9 Hypothyroidism, unspecified; E66.9 Obesity, unspecified; E11.9 Type 2 diabetes mellitus without complications; J45.909 Unspecified asthma, uncomplicated; J34.2 Deviated nasal septum; Z79.01 Long term (current) use of anticoagulants; Z79.51 Long term (current) use of inhaled steroids; Z86.718 Personal history of other venous thrombosis and embolism; Z86.711 Personal history of pulmonary embolism; Z79.899 Other long term (current) drug therapy; Z79.890 Hormone replacement therapy; Z86.79 Personal history of other diseases of the circulatory system; Z99.89 Dependence on other enabling machines and devices; Z91.048 Other nonmedicinal substance allergy status; Z88.0 Allergy status to penicillin; Z79.85 Long-term (current) use of injectable non-insulin antidiabetic drugs
CPT/HCPCS: 99212

== ENCOUNTER 2023-12-16 08:13 | Day surgery (SDC) | payer MEDICARE ==
[~2023-12-16 08:13] MED LIST: LIDOCAINE 1% (10MG/ML) FOR IV START INTRADERMA PRN
[2023-12-16] MEDS: LACTATED RINGERS 1,000 ML IV SCH (08:24)
[2023-12-16 09:13] LABS: Glucose,Whole Blood 111 mg/dL (70-110)
[2023-12-16 09:27] VITALS: RESP 16; TEMP 98.1
[2023-12-16] MEDS ORDERED: PROPOFOL 10 MG/ML 20 ML VIAL IV ONE (09:30)
--- NOTE | 2023-12-16 09:35 | P.GSHP ---
History of Present Illness H&P Date: 12/16/23 Chief Complaint: Colitis 82-year-old female here for colonoscopy. She was hospitalized in August with colitis involving the splenic flexure and descending colon and sigmoid colon. Patient has done well since that time. Denies rectal bleeding or melena. Past Medical History Past Medical History: Asthma, Diabetes Mellitus, Deep Vein Thrombosis (DVT), Hypertension, Osteoarthritis (OA), Pulmonary Embolus (PE), Sleep Apnea/CPAP/BIP AP, Thyroid Disorder Additional Past Medical History / Comment(s): just finished wearing heart monitor for Dr Napier, issues of feeling faint at times. changed BP meds and monit oring. feeling of heart flutters. bone on bone to left shoulder, painful. on preventative statin. wears cpap. pinched nerve in back , sciatica History of Any Multi-Drug Resistant Organisms: None Reported Past Surgical History: Breast Surgery, Hysterectomy, Orthopedic Surgery, Tonsillectomy Additional Past Surgical History / Comment(s): BILATERAL CATARACT SURGERY BILATERAL BUNYONECTOMY GREAT TOE, scope to knees Past Anesthesia/Blood Transfusion Reactions: No Reported Reaction Additional Past Anesthesia/Blood Transfusion Reaction / Comment(s): pt slow to wake up after breast bx. brother slow to wake. Smoking Status: Never smoker - Past Family History Mother Family Medical History: Coronary Artery Disease (CAD) Brother(s) Family Medical History: Diabetes Mellitus Additional Family Medical History / Comment(s): kidney failure. another brother colon cancer. - Medications and Allergies Home Medications Medication Instructions Recorded Confirmed Type Levothyroxine Sodium [Synthroid] 112 mcg PO DAILY 03/13/16 12/16/23 History Montelukast [Singulair] 10 mg PO HS 03/13/16 12/16/23 History Albuterol Sulfate [Albuterol 2 puff PO RT-QID PRN 08/26/23 12/16/23 History Sulfate Hfa] Budesonide/Formoterol Fumarate 2 puff INHALATION RT-BID 08/26/23 12/16/23 Histo ry [Symbicort 160-4.5 Mcg Inhaler] Losartan [Cozaar] 12.5 mg PO HS 08/26/23 12/16/23 History Rosuvastatin [Crestor] 10 mg PO HS 08/26/23 12/16/23 History Tirzepatide [Mounjaro] 7.5 mg SQ TH 08/26/23 12/16/23 History Apixaban Initiation Dose--VTE 5 mg PO BID 12/12/23 12/16/23 History [Eliquis Initiation Dosing for VTE Treatment] Unk Niacinamide 1 tab PO DAILY 12/12/23 12/16/23 History Allergies Allergy/AdvReac Type Severity Reaction Status Date / Time adhesive tape Allergy Skin Tears Verified 12/16/23 08:47 - Paper tape OK amoxicillin Allergy Rash/Hives Verified 12/16/23 08:47 numbing agent for mole Allergy redness Uncoded 12/16/23 08:47 removal and itching Surgical - Exam Vital Signs Temp Pulse Resp BP Pulse Ox 98.1 F 86 16 155/72 96 12/16/23 08:55 12/16/23 08:55 12/16/23 08:55 12/16/23 08:55 12/16/23 08:55 Physical exam: General: Well-developed, well-nourished HEENT: Normocephalic, sclerae nonicteric Abdomen: Nontender, nondistended Extremities: No edema Neuro: Alert and oriented Results - Labs Abnormal Lab Results - Last 24 Hours (Table) 12/16/23 Range/Units 09:06 POC Glucose (mg/dL) 111 H (70-110) mg/dL Assessment and Plan (1) Colitis Narrative/Plan: Will proceed with colonoscopy at this time. Current Visit: No Status: Acute Code(s): K52.9 - NONINFECTIVE GASTROENTERITIS AND COLITIS, UNSPECIFIED SNOMED Code(s): 60677880
--- NOTE | 2023-12-16 09:45 | P.PCN ---
Date of Procedure: 12/16/23 Procedure(s) Performed: PREOPERATIVE DIAGNOSIS: Colitis POSTOPERATIVE DIAGNOSIS: Extensive diverticulosis PROCEDURE: Colonoscopy ANESTHESIA: MAC SURGEON: Heron Valdivia M.D. SPECIMENS: None ENDOSCOPIC PROCEDURE: The patient was placed on the endoscopy table in the left decubitus position. The Olympus colonoscope was inserted into the anus and passed under direct visualization to the base of the cecum. The appendiceal orifice was visualized. From that point the scope was slowly withdrawn inspecting all surfaces carefully. There were no neoplastic inflammatory or polypoid lesions throughout the cecum, ascending, transverse, descending, sigmoid and rectum. There was extensive diffuse diverticulosis noted. In the proximal sigmoid colon there appeared to be on the way in a slight narrowing. This was thought to represent a mild stricture. On the way out this was not well-visualized and may have been simply a spasm of the colon. Digital rectal examination was normal. The patient was taken to the recovery room in stable condition per anesthesia guidelines. RECOMMENDATIONS: Resume diet. Increase fiber.
[2023-12-16 09:56] LABS: Glucose,Whole Blood 102 mg/dL (70-110)
[2023-12-16 10:11] VITALS: BP 114/57; PULSE 76
== END 2023-12-16 10:23 | disposition home or self-care (01) ==
LOC: ORWHC2ENDO 08:13
PROVIDERS: ATTEND Surgery
DX: K52.9 Noninfective gastroenteritis and colitis, unspecified (principal); E11.9 Type 2 diabetes mellitus without complications; G47.30 Sleep apnea, unspecified; I10 Essential (primary) hypertension; J45.909 Unspecified asthma, uncomplicated; M19.90 Unspecified osteoarthritis, unspecified site; Z79.01 Long term (current) use of anticoagulants; Z79.51 Long term (current) use of inhaled steroids; Z79.890 Hormone replacement therapy; Z80.0 Family history of malignant neoplasm of digestive organs; Z86.711 Personal history of pulmonary embolism; Z86.718 Personal history of other venous thrombosis and embolism
CPT/HCPCS: 45378; J2704

== ENCOUNTER 2024-01-23 18:14 | Emergency (ER) | payer MEDICARE ==
--- NOTE | 2024-01-23 18:58 | ED ---
General Adult HPI - General Source: patient Mode of arrival: ambulatory Limitations: no limitations <Gilberto Schreiber - Last Filed: 01/23/24 21:13> <Eryn Cortes - Last Filed: 01/25/24 08:07> - General Chief complaint: Fall Stated complaint: fall Time Seen by Provider: 01/23/24 18:31 - History of Present Illness Initial comments: Dictation was produced using [employer] dictation software. please excuse any grammatical, word or spelling errors. Chief Complaint: 83-year-old female presents to the emergency department after fall History of Present Illness: Patient is 83-year-old female she takes anticoagulation medication she was walking when she tripped over her own foot. She landed on her left side hurting her left knee left elbow and right hand. Patient denies any head injury. She states she takes anticoagulation medications. Patient complaining of left elbow pain and laceration The ROS documented in this emergency department record has been reviewed and confirmed by me. Those systems with pertinent positive or negative responses have been documented in the HPI. All other systems are other negative and/or noncontributory. (Gilberto Schreiber) - Related Data Home Medications Medication Instructions Recorded Confirmed Levothyroxine Sodium [Synthroid] 112 mcg PO DAILY 03/13/16 12/16/23 Montelukast [Singulair] 10 mg PO HS 03/13/16 12/16/23 Albuterol Sulfate [Albuterol 2 puff PO RT-QID PRN 08/26/23 12/16/23 Sulfate Hfa] Budesonide/Formoterol Fumarate 2 puff INHALATION RT-BID 08/26/23 12/16/23 [Symbicort 160-4.5 Mcg Inhaler] Losartan [Cozaar] 12.5 mg PO HS 08/26/23 12/16/23 Rosuvastatin [Crestor] 10 mg PO HS 08/26/23 12/16/23 Tirzepatide [Mounjaro] 7.5 mg SQ TH 08/26/23 12/16/23 Apixaban Initiation Dose--VTE 5 mg PO BID 12/12/23 12/16/23 [Eliquis Initiation Dosing for VTE Treatment] Unk Niacinamide 1 tab PO DAILY 12/12/23 12/16/23 Previous Rx's Medication Instructions Recorded Cephalexin [Keflex] 500 mg PO Q6HR 5 Days #20 cap 01/23/24 Allergies Allergy/AdvReac Type Severity Reaction Status Date / Time adhesive tape Allergy Skin Tears Verified 01/23/24 18:24 - Paper tape OK amoxicillin Allergy Rash/Hives Verified 01/23/24 18:24 numbing agent for mole Allergy redness Uncoded 01/23/24 18:24 removal and itching Review of Systems ROS Other: All systems not noted in ROS Statement are negative. <Gilberto Schreiber - Last Filed: 01/23/24 21:13> ROS Other: All systems not noted in ROS Statement are negative. <Eryn Cortes - Last Filed: 01/25/24 08:07> ROS Statement: Those systems with pertinent positive or pertinent negative responses have been documented in the HPI. Past Medical History Past Medical History: Asthma, Diabetes Mellitus, Deep Vein Thrombosis (DVT), Hypertension, Osteoarthritis (OA), Pulmonary Embolus (PE), Sleep Apnea/CPAP/BIPAP, Thyroid Disorder Additional Past Medical History / Comment(s): just finished wearing heart monitor for Dr Napier, issues of feeling faint at times. changed BP meds and monitoring. feeling of heart flutters. bone on bone to left shoulder, painful. on preventative statin. wears cpap. pinched nerve in back , sciatica History of Any Multi-Drug Resistant Organisms: None Reported Past Surgical History: Breast Surgery, Hysterectomy, Orthopedic Surgery, Tonsillectomy Additional Past Surgical History / Comment(s): BILATERAL CATARACT SURGERY BILATERAL BUNYONECTOMY GREAT TOE, scope to knees Past Anesthesia/Blood Transfusion Reactions: No Reported Reaction Additional Past Anesthesia/Blood Transfusion Reaction / Comment(s): pt slow to wake up after breast bx. brother slow to wake. Past Psychological History: No Psychological Hx Reported Smoking Status: Never smoker Past Alcohol Use History: None Reported Past Drug Use History: None Reported - Past Family History Mother Family Medical History: Coronary Artery Disease (CAD) Brother(s) Family Medical History: Diabetes Mellitus Additional Family Medical History / Comment(s): kidney failure. another brother colon cancer. - <Gilberto Schreiber - Last Filed: 01/23/24 21:13> General Exam Limitations: no limitations <Gilberto Schreiber - Last Filed: 01/23/24 21:13> - General Exam Comments Initial Comments: PHYSICAL EXAM: General Impression: Alert and oriented x3, not in acute distress HEENT: Normocephalic atraumatic, extra-ocular movements intact, pupils equal and reactive to light bilaterally, mucous membranes moist. Cardiovascular: Heart regular rate and rhythm Chest: Able to complete full sentences, no retractions, no tachypnea Abdomen: abdomen soft, non-tender, non-distended, no organomegaly Musculoskeletal: Pulses present and equal in all extremities, no peripheral edema Motor: no focal deficits noted Neurological: CN II-XII grossly intact, no focal motor or sensory deficits noted Skin: Degloving laceration to the left elbow with tenuous skin and exposed dermis, erythema and swelling to the right middle digit Psych: Normal affect and mood (Gilberto Schreiber) Course <Gilberto Schreiber - Last Filed: 01/23/24 21:13> Vital Signs 01/23/24 01/23/24 01/23/24 18:19 21:00 22:55 Temperature 98.3 F Pulse Rate 72 86 68 Respiratory 18 18 20 Rate Blood Pressure 152/84 146/85 136/70 O2 Sat by Pulse 96 98 98 Oximetry - Reevaluation(s) Reevaluation #1: 01/23/24 18:58 Patient has a ring on her finger and ring was cut using ring cutters (Gilberto Schreiber) Procedures - Laceration Laceration #1 Consent Obtained: verbal consent Indication: laceration (10cm) Site: other (elbow) Description: flap, avulsion Size of Sutures: 4-0 Technique: running Patient Tolerated Procedure: well <Gilberto Schreiber - Last Filed: 01/23/24 21:13> Medical Decision Making <Gilberto Schreiber - Last Filed: 01/23/24 21:13> <Eryn Cortes - Last Filed: 01/25/24 08:07> - Medical Decision Making Was pt. sent in by a medical professional or institution (, PA, DUST MOP [employer]KER, urgent care, hospital, or jail...) When possible be specific @ -No Did you speak to anyone other than the patient for history (EMS, parent, family, police, friend...)? What history was obtained from this source @ -No Did you review nursing and triage notes (agree or disagree)? Why? @ -I reviewed and agree with nursing and triage notes Were old charts reviewed (outside hosp., previous admission, EMS record, old EKG, old radiological studies, urgent care reports/EKG's, jail records)? Report findings @ -No old charts were reviewed Differential Diagnosis (chest pain, altered mental status, abdominal pain women, abdominal pain men, vaginal bleeding, musculoskeletal, weakness, fever, dyspnea, syncope, headache, dizziness, GI bleed, back pain, seizure, CVA, palpatations, mental health)? @ -Not applicable EKG interpreted by me (3pts min.). @ -None done X-rays interpreted by me (1pt min.). @ -X-ray of the left knee, left elbow and right hand shows no acute processes CT interpreted by me (1pt min.). @ -CT brain shows no large intracranial bleed U/S interpreted by me (1pt. min.). @ -None done What testing was considered but not performed or refused? (CT, X-rays, U/S, labs)? Why? @ -None What meds were considered but not given or refused? Why? @ -None Did you discuss the management of the patient with other professionals (professionals i.e. , PA, D[employer]ER, lab, RT, psych nurse, socially responsible investment adviser, paving machine operator, teacher, operations officer trust department, assistant case manager)? Give summary @ -No Was smoking cessation discussed for >3mins.? @ -No Was critical care preformed (if so, how long)? @ -No Were there social determinants of health that impacted care today? How? (Homelessness, low income, unemployed, alcoholism, drug addiction, transpor tation, low edu. Level, literacy, decrease access to med. care, snf, rehab)? @ -No Was there de-escalation of care discussed even if they declined (Discuss DNR or withdrawal of care, Hospice)? DNR status @ -No What co-morbidities impacted this encounter? (DM, HTN, Smoking, COPD, CAD, Cancer, CVA, ARF, Chemo, Hep., AIDS, mental health diagnosis, sleep apnea, morbid obesity)? @ -None Was patient admitted / discharged? Hospital course, mention meds given and route, prescriptions, significant lab abnormalities, going to OR and other pertinent info. @ -83-year-old female presents emergency department after fall. She tripped over her own foot at the restaurant. Vital signs stable. Patient has avulsion laceration to her left elbow that was sutured. Please see procedure note above for further details. Patient also has contusion to her left knee and right hand. Pending radiology reads. I did not notice any abnormalities on imaging Undiagnosed new problem with uncertain prognosis? @ -No Drug Therapy requiring intensive monitoring for toxicity (Heparin, Nitro, Insulin, Cardizem)? @ -No Were any procedures done? @ -No Diagnosis/symptom? Acute, or Chronic, or Acute on Chronic? Uncomplicated (without systemic symptoms) or Complicated (systemic symptoms)? @ -Fall Side effects of treatment? @ -No Exacerbation, Progression, or Severe Exacerbation? @ -No Poses a threat to life or bodily function? How? (Chest pain, [place], [place], pneumonia, PE, COPD, DKA, ARF, appy, cholecystitis, CVA, Diverticulitis, Homicidal, Suicidal, threat to staff... and all critical care pts) @ -No (Gilberto Schreiber) Patient care was signed out to me pending results of imaging. From my evaluation there is no acute findings. Radiology agrees there is no obvious fractures. Patient likely just with soft tissue injuries. Will be discharged home with supportive care. Daughter Quiring what meds can be given for pain management I advised Tylenol. Patient is elderly and on multiple medications including narcotics, anti-inflammatories. (Eryn Cortes) Disposition Is patient prescribed a controlled substance at d/c from ED?: No <Gilberto Schreiber - Last Filed: 01/23/24 21:13> Is patient prescribed a controlled substance at d/c from ED?: No <Eryn Cortes - Last Filed: 01/25/24 08:07> Clinical Impression: Fall Disposition: HOME SELF-CARE Prescriptions: Cephalexin [Keflex] 500 mg PO Q6HR 5 Days #20 cap Referrals: Michael Martinez MD [Primary Care Provider] - 1-2 days
[2024-01-23 19:10] VITALS: TEMP 98.3
[2024-01-23] MEDS: DIPH,PERTUS(ACELL)TETVAC-LF 0.5 ML VIAL IM ONE (21:27)
[2024-01-23] MEDS: LIDOCAINE 2%-EPI 1:100,000 20 ML VIAL SQ STA (21:28)
--- NOTE | 2024-01-23 23:00 | CT ---
EXAMINATION TYPE: CT brain wo con CT DLP: 1095.4 mGycm, Automated exposure control for dose reduction was used. DATE OF EXAM: 01/23/2024 8:11 PM COMPARISON: None.. CLINICAL INDICATION:Female, 83 years old with history of fall, tripped over her shoe. did not hit hea d TECHNIQUE: Brain: Axial CT images of the brain were obtained with coronal and sagittal reformats created and rev iewed. Contrast used: None. Oral contrast used: None. FINDINGS: Extra-axial spaces: No abnormal extra-axial fluid collections. Partially calcified extra-axial 1 cm mass over the right parietal lobe, likely meningioma. Basilar cisterns are patent. Ventricular system: Ventricles appear dilated in proportion to the degree of cerebral atrophy. Cerebral parenchyma: No increased attenuation to suggest acute intraparenchymal hemorrhage. The gra y-white matter interface appears maintained. Moderate generalized brain atrophy. Scattered and some confluent hypoattenuating areas are seen within the cerebral white matter, nonspecific but most ofte n seen with chronic microvascular ischemic changes; moderate in degree. Cerebellum: No acute abnormality. Mass effect: No evidence of mass effect or midline shift. Intracranial vasculature: Partial calcification of the carotid siphons. Basilar artery is tortuous. N o clear evidence of hyperdense vessel sign. There is overall slightly increased attenuation of the in tracranial arteries likely sequela of atherosclerosis. Soft tissues: No significant acute or concerning abnormality. Visualized orbits: Orbital contents appear grossly intact. There has likely been previous lens surg brittny. Calvarium/osseous structures: No evidence of calvarial fracture. Paranasal sinuses and mastoid air cells: Clear. MRI is more sensitive for detecting acute processes such as infarct, and may be considered if clinica lly warranted. IMPRESSION: 1. No evidence of an acute traumatic intracranial abnormality. 2. Atrophy and chronic microvascular ischemic changes.
--- NOTE | 2024-01-23 23:07 | XR ---
EXAMINATION TYPE: XR elbow complete LT DATE OF EXAM: 01/23/2024 7:20 PM CLINICAL INDICATION:Female, 83 years old with history of fall; [facility] COMPARISON: None TECHNIQUE: The elbow was examined in AP, lateral, and oblique projections. Findings: Osseous mineralization appears appropriate. Mild to moderate degenerative changes about the elbow. No acute fracture lucency or cortical disruption is seen. There is no dislocation. Soft tissues are nicolle ssly unremarkable. No radiopaque foreign body is seen. IMPRESSION: No acute fracture or dislocation identified.
--- NOTE | 2024-01-23 23:09 | XR ---
EXAMINATION TYPE: XR hand complete RT DATE OF EXAM: 01/23/2024 7:20 PM CLINICAL INDICATION:Female, 83 years old with history of fall; [facility] COMPARISON: None TECHNIQUE: 3 views right and FINDINGS: Osseous mineralization appears appropriate. Moderate osteoarthritic changes throughout, greatest at t he basal joint of the thumb where there is mild subluxation. No periarticular erosions, fractures, or dislocations. There is mild negative ulnar variance. Mild/moderate degenerative change of the distal radial ulnar joint. A ring remains in place on the fourth digit, otherwise no radiopaque foreign bod y is seen. IMPRESSION: 1. No evidence of acute fracture or dislocation. 2. Moderate osteoarthritic changes.
--- NOTE | 2024-01-23 23:11 | XR ---
EXAMINATION TYPE: XR knee 4V LT DATE OF EXAM: 01/23/2024 COMPARISON: None HISTORY: Pain after fall TECHNIQUE: 4 view left knee FINDINGS: There is narrowing of the medial compartment joint space. Mild narrowing of the lateral com partment joint space is present. Medial lateral femoral condylar and tibial plateau spurring is prese nt. No joint effusion is evident. Patellofemoral degenerative changes are present. No acute fractures are evident. Follow-up studies can be performed 7-10 days from acute trauma for co ntinued pain. IMPRESSION: 1. No acute osseous abnormality of the left knee. 2. Moderately advanced degenerative changes left knee.
[2024-01-23 23:15] VITALS: BP 136/70; PULSE 68; RESP 20
== END 2024-01-23 22:57 | disposition home or self-care (01) ==
LOC: EC 18:14
DX: S61.411A Laceration without foreign body of right hand, initial encounter (principal); Z91.09 Other allergy status, other than to drugs and biological substances; Z88.0 Allergy status to penicillin; Z88.8 Allergy status to other drugs, medicaments and biological substances; Z23 Encounter for immunization; W01.0XXA Fall on same level from slipping, tripping and stumbling without subsequent striking against object, initial encounter; Y93.01 Activity, walking, marching and hiking
CPT/HCPCS: 12004; 70450; 90471; 90715; 99284

== ENCOUNTER → 2024-02-04 | Outpatient (CLI) | payer MEDICARE ==
--- NOTE | 2024-02-05 13:53 | MM ---
Reason for Exam: Screening (asymptomatic). Last mammogram was performed 1 year(s) and 1 month(s) ago. Patient History: Menarche at age 14. First Full-Term at age 27. Left ovary removed at age 47. Right ovary removed at age 47. Hysterectomy at age 47. Postmenopausal. Other cancer. Patient used Estrogen for 15 years. Patient used Hormonal Contraceptives for 10 years. 2001, Benign Excisional Biopsy on the right side. 03/09/2013, Benign Core Biopsy on the left side. Daughter had breast cancer, age 30. Daughter had breast cancer, age 44. Risk Values: Cher 5 year model risk: 4.7%. NCI Lifetime model risk: 6.8%. Prior Study Comparison: 06/05/2016 Bilateral Screening Mammogram, [facility]. 07/15/2017 Bilateral Diagnostic Mammogram, [facility]. 07/21/2018 Bilateral Screening Mammogram, [facility]. 09/21/2019 Bilateral Screening Mammogram, [facility]. 10/04/2019 Bilateral Diagnostic Mammogram, [facility]. 09/04/2021 Bilateral Screening Mammogram, [facility]. 07/24/2022 Bilateral MG 3D diag mammo w/cad DARA, [facility]. 01/22/2023 Bilateral MG 3D diag mammo w/cad DARA, [facility]. Tissue Density: There are scattered areas of fibroglandular density. Findings: Analyzed By CAD. Right breast: There is no suspicious group of microcalcifications or new suspicious mass. Left breast: There is no suspicious group of microcalcifications or new suspicious mass. Benign-appearing calcifications left breast. Overall Assessment: Benign, BI-RAD 2 Management: Screening Mammogram of both breasts in [address] [facility] will attempt to contact patient to return for supplemental views and ultrasound if indicated. Patient should continue monthly self-breast exams. A clinical breast exam by your physician is recommended on an annual basis. This exam should not preclude additional follow-up of suspicious palpable abnormalities. Note on Cher scores and lifetime risk: 1. A Cher score greater than 3% is considered moderate risk. If this is the case, consider specialist referral to assess eligibility for a risk reducing agent. 2. If overall lifetime risk for the development of breast cancer is 20% or higher, the patient may qualify for future screening with alternating mammogram and breast MRI. Electronically signed and approved by: Jacobo Caro DO
== END | disposition home or self-care (01) ==
LOC: RADMAMWWP 13:05
PROVIDERS: ATTEND Family Medicine
DX: Z12.31 Encounter for screening mammogram for malignant neoplasm of breast (principal); Z80.3 Family history of malignant neoplasm of breast; Z78.0 Asymptomatic menopausal state
CPT/HCPCS: 77063; 77067

== ENCOUNTER → 2024-05-05 | Outpatient (CLI) | payer MEDICARE ==
[2024-05-05 12:06] VITALS: BP 132/74; PULSE 66; RESP 16; TEMP 97.7
--- NOTE | 2024-05-05 12:35 | P.PROGSL ---
Subjective DATE: 05/05/2024 FOLLOW UP VISIT. Patient with obstructive sleep apnea hypopnea syndrome return to sleep center for follow-up visit. Information from previous visit have been reviewed. Patient is using PAP equipment every night for the whole night, getting PAP supplies in time. The patient does not have significant problems with the mask, PAP unit and humidification. [place] sleepiness scale is 3, which is normal. I checked information from PAP unit. PAP unit pressure 5-10, average 10 cm H2O. Usage is 100% for more then 4 hours, average 6.1 hours per night. Leak is increased to 29 l/m. Apnea Hypopnea Index is 1.0, which is normal. MEDICATIONS have been reviewed, please see below. During physical exam: GENERAL: A pleasant patient without any distress. VITAL SIGNS: Please see below, weight is 177.6 lbs. HEENT: PERRLA, EOMI.low position of soft palate, [place] 4 . NECK: Supple. No JVD. LUNGS: Clear to percussion and to auscultation. Good air exchange. No wheezing or rhonchi. HEART: S1, S2 regular. ABDOMEN: Soft and nontender.[] EXTREMITIES: No clubbing or cyanosis. TELEGRAPH SERVICE CLERK: Awake, alert, and oriented x3. No focal deficit. Impressions: 1. Obstructive sleep apnea-hypopnea syndrome. Patient demonstrated great compliance with treatment, benefiting from treatment. 2. Obesity, BMI 34.9, patient lost 2 pounds comparing with the previous visit. 3. History of atrial fibrillation. 4. Hypothyroidism. 5. Asthma. 6. History of DVT. 7. Status post bilateral PE. 8. Nasal septum deviation. Plan: 1. Continue using PAP equipment every night for the whole night. 2. Sleep hygiene with regular time in bed for at least 7.5-8 hours 3. PAP unit should stay lower then position of the head. 4. Advised patient to remove all remaining water from humidifier canister daily and make it dry after each usage. Refill canister with fresh distilled water before each usage. 5. Watching and losing weight. 6. Precautions related to driving. No driving if feel any sleepiness. 7. I will maintain prescription for PAP supplies including mask, tube, filters. 8. Follow up visit in 6 months or earlier if patient has any problems. Thank you very much for allowing me to participate in the management of your patient. Germain Wasserman MD, PhD, FAASM. Diplomat of [place] [employer], Sleep Medicine Board by [place] [employer] Personnel Counselor of [facility] [place] Objective - Vital Signs Vital Signs: Vital Signs Temp 97.7 F 05/05/24 12:04 Pulse 66 05/05/24 12:04 Resp 16 05/05/24 12:04 BP 132/74 05/05/24 12:04 Pulse Ox 96 05/05/24 12:04 FiO2 Intake & Output 05/04/24 05/05/24 05/05/24 18:59 06:59 18:59 Weight 80.558 kg Home Medications: Home Medications Medication Instructions Recorded Confirmed Type Levothyroxine Sodium [Synthroid] 112 mcg PO DAILY 03/13/16 12/16/23 History Montelukast [Singulair] 10 mg PO HS 03/13/16 05/05/24 History Albuterol Sulfate [Albuterol 2 puff PO RT-QID PRN 08/26/23 12/16/23 History Sulfate Hfa] Budesonide/Formoterol Fumarate 2 puff INHALATION RT-BID 08/26/23 05/05/24 History [Symbicort 160-4.5 Mcg Inhaler] Losartan [Cozaar] 12.5 mg PO HS 08/26/23 05/05/24 History Rosuvastatin [Crestor] 10 mg PO HS 08/26/23 05/05/24 History Tirzepatide [Mounjaro] 7.5 mg SQ TH 08/26/23 05/05/24 History Apixaban Initiation Dose--VTE 5 mg PO BID 12/12/23 05/05/24 History [Eliquis Initiation Dosing for VTE Treatment] Unk Niacinamide 1 tab PO DAILY 12/12/23 12/16/23 History Cephalexin [Keflex] 500 mg PO Q6HR 5 Days #20 cap 01/23/24 Rx Metoprolol Succinate [Metoprolol 25 mg PO DAILY 05/05/24 05/05/24 History Succinate ER] Spironolactone-Hctz 25-25Mg See Rx Instructions .ROUTE .COMPLEX 05/05/24 05/05/24 History [Aldactazide 25-25 MG]
== END ==
LOC: 3 N SLEEP 11:33
PROVIDERS: ATTEND Internal Medicine
CPT/HCPCS: 99212

== ENCOUNTER → 2024-06-02 | Outpatient (CLI) | payer MEDICARE ==
--- NOTE | 2024-06-02 12:27 | CT ---
EXAMINATION TYPE: CT dusty shoulder LT wo con DATE OF EXAM: 06/02/2024 COMPARISON: CTA chest 08/27/2023 HISTORY: left shoulder pain, pre op dusty protocol. CT DLP: 332.8 mGycm Automated exposure control for dose reduction was used. TECHNIQUE: Axial images were obtained of the left shoulder without the use of IV contrast. Dusty pro tocol. Additional coronal and sagittal reformatted images and soft tissue and bone window were obtain ed for review. 3-D reconstruction was created on a separate workstation. FINDINGS: There is no evidence of fracture, subluxation, or dislocation. Advanced osteoarthritic mercado ges of the left shoulder with joint space narrowing and large spurring. Small subchondral cystic mercado ges identified. Large subcoracoid bursa measuring 3.7 x 3.6 cm. Additionally enlarged bicipitoradial bursa measuring up to 3.1 cm. No significant joint effusion is identified. No focal muscular atrophy or edema is identified. No radiopaque foreign body identified. No significant AC joint arthropathy. Multilevel degenerative changes of the visualized cervical and upper thoracic spine. Visualized lungs are relatively clear. Atherosclerotic calcification of the bilateral carotid bulbs. Mild medial deviation with retropharyng eal course of the right common carotid artery. Atherosclerotic calcification of the visualized aortic arch. Moderate coronary artery calcifications. IMPRESSION: 1. No acute fracture or dislocation. 2. Advanced osteoarthritic changes of the left shoulder. 3. Bursitis involving the subcoracoid and bicipitoradial bursa. [facility], , 06/02/2024 12:25 PM
== END | disposition home or self-care (01) ==
LOC: RADCTMAIN 10:54
PROVIDERS: ATTEND Orthopaedic Surgery Hand Surgery
DX: M25.512 Pain in left shoulder

== ENCOUNTER → 2024-06-14 | Outpatient (CLI) | payer MEDICARE ==
[2024-06-14 12:03] LABS: INR 1.1 (<1.2); Partial Thromboplastin Time 26.7 sec (22.0-30.0); Prothrombin Time 12.1 sec (10.0-12.5)
[2024-06-14 15:15] LABS: ALT 15 U/L (8-44); AST 24 U/L (13-35); Albumin 4.2 g/dL (3.8-4.9); Albumin/Globulin Ratio 1.83 Ratio (1.60-3.17); Alkaline Phosphatase 54 U/L (41-126); Calcium 9.7 mg/dL (8.7-10.3); Chloride 99 mmol/L (96-109); Globulin 2.3 g/dL (1.6-3.3); Glucose 114 mg/dL (70-110); Sodium 140 mmol/L (135-145); Total Protein 6.5 g/dL (6.2-8.2)
[2024-06-14 15:16] LABS: HCT 42.5 % (37.2-46.3); HGB 14.6 g/dL (12.0-15.0); MCH 30.5 pg (27.0-32.0); MCHC 34.4 g/dL (32.0-37.0); MCV 88.7 FL (80.0-97.0); Mean Platelet Volume 9.6 FL (9.5-12.2); NRBC Per 100 WBC 0 X 10*3/uL (0.00-0.01); Platelet Count 290 X 10*3/uL (140-440); RBC 4.79 X 10*6/uL (4.10-5.20); RDW 13.4 % (11.5-14.5); WBC 7.66 X 10*3/uL (4.50-10.00)
== END | disposition home or self-care (01) ==
LOC: LABPAT 10:46
PROVIDERS: ATTEND Orthopaedic Surgery Hand Surgery
DX: Z01.818 Encounter for other preprocedural examination
CPT/HCPCS: 36415; 80053; 85027; 85610; 85730; 87070

== ENCOUNTER 2024-06-28 12:23 | Day surgery (SDC) | payer MEDICARE ==
[2024-06-21 14:27] VITALS: BMI 32.6
[~2024-06-28 12:23] MED LIST changes: -LIDOCAINE 1% (10MG/ML) FOR IV START INTRADERMA PRN; +TRANEXAMIC 1,000 MG/100ML-NACL 1,000 MG in SALINE 1 100ML.BAG IVPB PRN
[2024-06-28] MEDS: IV FLUID CONTINUATION 1,000 ML IV ONE (13:30)
[2024-06-28] MEDS: LACTATED RINGERS 1,000 ML IV SCH (13:30)
[2024-06-28] MEDS: ACETAMINOPHEN TAB 500 MG TAB PO PRN (13:45)
[2024-06-28] MEDS: ONDANSETRON 4 MG/2 ML VIAL IVP ONE (13:46)
[2024-06-28] MEDS: DEXAMETHASONE SOD PHOSPHATE 10 MG/ML 1 ML VIAL IV PRN (13:47)
[2024-06-28 13:50] LABS: Glucose,Whole Blood 118 mg/dL (70-110)
[2024-06-28] MEDS: MIDAZOLAM 2 MG/2 ML VIAL IV PRN (14:05)
--- NOTE | 2024-06-28 14:12 | P.ANPRN ---
Procedure Note - Anesthesia - Nerve Block Performed Left Interscalene Single Time Out Performed: Yes Date of Procedure: 06/28/24 Procedure Start Time: 14:05 Procedure Stop Time: 14:12 Location of Patient: PreOp Indication: Acute Post-Operative Pain, Requested by Surgeon Sedation Type: Sedate with meaningful contact maintained Preparation: Sterile Prep Position: Supine Needle Types: Pajunk Needle Gauge: 21 Ultrasound used to visualize needle placement: Yes Ultrasound used to observe medication spread: Yes Injectate: 0.5% Ropivacaine (see comment for volume) (25 ml + 4 mg De xamethasone) Blood Aspirated: No Pain Paresthesia on Injection Noted: No Resistance on Injection: Normal Image Stored and Saved: Yes Events: Uneventful and Well Tolerated
[2024-06-28] MEDS ORDERED: DEXAMETHASONE SOD PHOSPHATE 4 MG/ML 1 ML VIAL ONE (14:41)
[2024-06-28] MEDS ORDERED: GLYCOPYRROLATE 0.2 MG/ML 2 ML VIAL ONE (14:41)
[2024-06-28] MEDS ORDERED: fentaNYL (PF) 50 MCG/ML 2 ML AMP ONE (14:41)
[2024-06-28] MEDS ORDERED: SUCCINYLCHOLINE CHLORIDE 200 MG/10 ML VIAL IV ONE (14:41)
[2024-06-28] MEDS ORDERED: PROPOFOL 10 MG/ML 20 ML VIAL IV ONE (14:41)
[2024-06-28] MEDS ORDERED: ROCURONIUM 10 MG/ML (5 ML VIAL) IV ONE (14:41)
[2024-06-28] MEDS ORDERED: NEOSTIGMINE 1 MG/ML 10 ML VIAL ONE (14:41)
[2024-06-28] MEDS ORDERED: ePHEDrine 50 MG/ML 1 ML VIAL ONE (14:41)
[2024-06-28] MEDS ORDERED: ROPIVACAINE 5 MG/ML 30 ML VIAL ONE (14:41)
[2024-06-28] MEDS ORDERED: PHENYLEPHRINE 10 MG/ML VIAL ONE (14:41)
[2024-06-28] MEDS ORDERED: LIDOCAINE 1% INJ 10MG/ML (20 ML MDV) ONE (14:41)
[2024-06-28] MEDS ORDERED: TRANEXAMIC 1,000 MG/100ML-NACL PREMIX BAG ONE (14:41)
[2024-06-28] MEDS: ceFAZolin 1,000 MG in SODIUM CHLORIDE 0.9% 1,000 ML IRRIGATION ONE (14:46)
[2024-06-28] MEDS ORDERED: HYDROcodone/APAP 5-325MG 1 EACH TAB PO PRN (14:48)
[2024-06-28] MEDS ORDERED: HYDROmorphone 0.5 MG/0.5 ML SYRINGE IVP PRN ×2 (14:48)
[2024-06-28] MEDS ORDERED: SENNOSIDES-DOCUSATE SODIUM 1 EACH TAB PO PRN (14:48)
[2024-06-28] MEDS: HYDROmorphone 0.5 MG/0.5 ML SYRINGE IVP PRN (18:20)
--- NOTE | 2024-06-28 19:02 | XR ---
EXAMINATION TYPE: XR shoulder limited LT DATE OF EXAM: 06/28/2024 6:36 PM COMPARISON: None CLINICAL INDICATION: Female, 83 years old with history of post op RSA. assess alignment; [facility] TECHNIQUE: XR shoulder limited LT; examined in frontal projections. FINDINGS: Shoulder arthroplasty with hardware intact. Subcutaneous lucencies compatible with recent surgery. No evidence for fracture. Hardware appears in tact The remaining portions of the visualized chest are unremarkable. IMPRESSION: Post shoulder arthroplasty, no evidence for immediate postop complication. [facility], , 06/28/2024 7:00 PM
[2024-06-28 19:32] LABS: Glucose,Whole Blood 145 mg/dL (70-110)
[2024-06-28] MEDS: ONDANSETRON 4 MG/2 ML VIAL IVP PRN (19:55)
[2024-06-28] MEDS ORDERED: ALBUTEROL NEBULIZED 2.5 MG/3 ML INHALATION PRN (20:15)
[2024-06-28] MEDS: DEXAMETHASONE SOD PHOSPHATE 4 MG/ML 1 ML VIAL IV ONE (20:37)
[2024-06-28] MEDS: ATORVASTATIN 20 MG TAB PO SCH (21:49)
[2024-06-28] MEDS: APIXABAN 5 MG TAB PO SCH (21:49)
[2024-06-28] MEDS: MONTELUKAST 10 MG TAB PO SCH (21:49)
[2024-06-28] MEDS: LOSARTAN 25 MG TAB PO SCH (21:49)
[2024-06-29] MEDS: HYDROmorphone 0.5 MG/0.5 ML SYRINGE IVP PRN (06:07)
[2024-06-29 06:08] LABS: Glucose,Whole Blood 160 mg/dL (70-110)
[2024-06-29] MEDS: LEVOTHYROXINE 112 MCG TAB PO SCH (06:08)
[2024-06-29] MEDS: METOPROLOL SUCCINATE (ER) 25 MG TAB.ER.24H PO SCH (08:28)
[2024-06-29] MEDS: SPIRONOLACTONE 25 MG TAB PO SCH (08:28)
[2024-06-29] MEDS: hydroCHLOROthiazide 25 MG TAB PO SCH (08:28)
[2024-06-29] MEDS: SYMBICORT 160-4.5 MCG INHALER INHALATION SCH (08:57)
--- NOTE | 2024-06-29 08:57 | P.CONS ---
History of Present Illness - Reason for Consult Consult date: 06/29/24 - Chief Complaint medical management - History of Present Illness This is an 83-year-old female who was admitted yesterday and underwent a left reverse total shoulder arthroplasty with Dr. Miller. Patient seen this morning sitting in chair at bedside. She reports some nausea this morning due to the pain medication but is overall feeling well. Her vital signs are stable, she is tolerating diet, and blood sugars are well-controlled. Further medical history as noted below. Review of Systems Constitutional: Denies chills, Denies fever Cardiovascular: Denies chest pain, Denies dyspnea on exertion Respiratory: Denies cough, Denies dyspnea Gastrointestinal: Reports nausea, Denies abdominal pain, Denies vomiting Musculoskeletal: Denies arm numbness/tingling, Denies leg numbness/tingling Musculoskeletal: left: shoulder pain Neurological: Denies headaches, Denies weakness Past Medical History Past Medical History: Atrial Fibrillation, Asthma, Cancer, Diabetes Mellitus, Deep Vein Thrombosis (DVT), Hyperlipidemia, Hypertension, Osteoarthritis (OA), Pulmonary Embolus (PE), Sleep Apnea/CPAP/BIPAP, Thyroid Disorder Additional Past Medical History / Comment(s): See's Dr Napier, hx issues of feeling faint at times. changed BP meds and monitoring. feeling of heart flutters. bone on bone to left shoulder, painful. on preventative statin. wears cpap. pinched nerve in back , sciatica, Colitis flare up in 08/2023, DVT/PE 08/26/2023; SCC bx; lower extremity swelling History of Any Multi-Drug Resistant Organisms: None Reported Past Surgical History: Breast Surgery, Hysterectomy, Orthopedic Surgery, Tonsillectomy Additional Past Surgical History / Comment(s): BILATERAL CATARACT SURGERY, BILATERAL BUNYONECTOMY GREAT TOE, arthroscope to knees; breast bx- lumpectomy; Past Anesthesia/Blood Transfusion Reactions: No Reported Reaction Additional Past Anesthesia/Blood Transfusion Reaction / Comm: pt slow to wake up after breast bx. brother slow to wake. Past Psychological History: No Psychological Hx Reported Smoking Status: Never smoker Past Alcohol Use History: None Reported Past Drug Use History: None Reported - Past Family History Mother Family Medical History: Coronary Artery Disease (CAD) Brother(s) Family Medical History: Diabetes Mellitus Additional Family Medical History / Comment(s): kidney failure. another brother colon cancer. - Daughter(s) Family Medical History: Cancer Additional Family Medical History / Comment(s): Breast CA Medications and Allergies Home Medications Medication Instructions Recorded Confirmed Type Levothyroxine Sodium [Synthroid] 112 mcg PO DAILY 03/13/16 06/21/24 History Montelukast [Singulair] 10 mg PO HS 03/13/16 06/21/24 History Albuterol Sulfate [Albuterol 2 puff PO RT-QID PRN 08/26/23 06/21/24 History Sulfate Hfa] Losartan [Cozaar] 12.5 mg PO HS 08/26/23 06/21/24 History Rosuvastatin [Crestor] 10 mg PO HS 08/26/23 06/21/24 History Tirzepatide [Mounjaro] 7.5 mg SQ TH 08/26/23 06/21/24 History Metoprolol Succinate [Metoprolol 12.5 mg PO DAILY 05/05/24 06/21/24 History Succinate ER] Acetaminophen [Tylenol] 325 mg PO DIRECTED PRN 06/21/24 06/21/24 History Apixaban [Eliquis] 5 mg PO BID 06/21/24 06/21/24 History Budesonide-Formot 160-4.5 Mcg 2 puff INHALATION BID 06/21/24 06/21/24 History [Symbicort 160-4.5 Mcg Inhaler] Spironolactone [Aldactone] 25 mg PO DAILY 06/21/24 06/21/24 History hydroCHLOROthiazide 25 mg PO DAILY 06/21/24 06/21/24 History Allergies Allergy/AdvReac Type Severity Reaction Status Date / Time adhesive tape Allergy Skin Tears Verified 06/28/24 12:55 - Paper tape OK amoxicillin Allergy Rash/Hives Verified 06/28/24 12:55 numbing agent for mole Allergy redness Uncoded 06/28/24 12:55 removal and itching Physical Exam Vitals: Vital Signs Temp Pulse Resp BP Pulse Ox 06/29/24 07:24 97.1 F L 80 18 130/75 93 L 06/29/24 01:39 97.9 F 91 18 121/74 96 06/28/24 19:52 97.5 F L 73 18 117/64 95 06/28/24 19:20 74 16 122/81 93 L 06/28/24 19:05 72 16 124/68 93 L 06/28/24 18:50 80 16 122/70 92 L 06/28/24 18:35 73 16 124/63 94 L 06/28/24 18:20 66 16 120/75 94 L 06/28/24 18:05 66 16 117/59 93 L 06/28/24 17:50 70 16 124/63 93 L 06/28/24 17:35 97 F L 79 12 113/63 92 L 06/28/24 14:10 70 16 164/75 96 06/28/24 13:16 97.4 F L 81 16 162/83 94 L Intake and Output 06/28/24 06/29/24 06/29/24 22:59 06:59 14:59 Intake Total 200 Output Total 70 Balance 130 Intake: IV 200 Output: Estimated Blood Loss 70 Other: # Voids 2 Weight 80.4 kg - Constitutional General appearance: cooperative, no acute distress - EENT Eyes: PERRLA - Neck Neck: no lymphadenopathy, normal ROM, no rigidity - Respiratory Respiratory: bilateral: CTA - Cardiovascular Heart sounds: normal: S1, S2 - Gastrointestinal General gastrointestinal: soft, no tenderness - Integumentary Integumentary: normal, normal turgor - Musculoskeletal left shoulder in sling - Psychiatric Psychiatric: A&O x's 3, appropriate affect, intact judgment & insight Results Labs: Abnormal Lab Results - Last 24 Hours (Table) 06/28/24 06/28/24 06/29/24 Range/Units 13:36 19:29 06:06 POC Glucose (mg/dL) 118 H 145 H 160 H (70-110) mg/dL Assessment and Plan (1) Status post total shoulder arthroplasty Current Visit: Yes Status: Acute Code(s): Z96.619 - PRESENCE OF UNSPECIFIED ARTIFICIAL SHOULDER JOINT SNOMED Code(s): 234143064 (2) Diabetes Current Visit: No Status: Acute Code(s): E11.9 - TYPE 2 DIABETES MELLITUS WITHOUT COMPLICATIONS SNOMED Code(s): 07385092 (3) Hypertension Current Visit: Yes Status: Acute Code(s): I10 - ESSENTIAL (PRIMARY) HYPERTENSION SNOMED Code(s): 16744528 (4) Hyperlipidemia Current Visit: Yes Status: Acute Code(s): E78.5 - HYPERLIPIDEMIA, UNSPECIFIED SNOMED Code(s): 71178542 (5) Hypothyroid Current Visit: Yes Status: Acute Code(s): E03.9 - HYPOTHYROIDISM, UNSPECIFIED SNOMED Code(s): 23147661 (6) History of pulmonary embolism Current Visit: Yes Status: Acute Code(s): Z86.711 - PERSONAL HISTORY OF PULMONARY EMBOLISM SNOMED Code(s): 977616943 (7) History of atrial fibrillation Current Visit: Yes Status: Acute Code(s): Z86.79 - PERSONAL HISTORY OF OTHER DISEASES OF THE CIRCULATORY SYSTEM SNOMED Code(s): 769622715 (8) Shoulder arthritis Current Visit: Yes Status: Acute Code(s): M19.019 - PRIMARY OSTEOARTHRITIS, UNSPECIFIED SHOULDER SNOMED Code(s): 8889012017 Plan: Continue home medications. Patient may be discharged from our standpoint when cleared by surgeon. Patient seen and evaluated by nurse practitioner, physician in agreement with plan.
--- NOTE | 2024-06-29 09:04 | P.PN ---
Subjective Progress Note Date: 06/29/24 Principal diagnosis: Status post left reverse total shoulder arthroplasty This is a 83 year-old female post left reverse total shoulder arthroplasty. This is post-op day 1. The patient was evaluated at the bedside today. The patient denies abdominal pain, shortness of breath, and chest pain this morning. She is having nausea due to the pain medication. She states her pain is controlled at this time. The patient is ambulating to the bathroom with stand by assist due to dizziness and nausea. Objective - Vital Signs Vital signs: Vital Signs Temp 97.1 F L 06/29/24 07:24 Pulse 80 06/29/24 07:24 Resp 18 06/29/24 07:24 BP 130/75 06/29/24 07:24 Pulse Ox 93 L 06/29/24 07:24 FiO2 Intake & Output 06/28/24 06/29/24 06/29/24 18:59 06:59 18:59 Intake Total 551 200 Output Total 70 Balance 481 200 Weight 80.4 kg 80.4 kg Intake: IV 551 200 Output: Estimated Blood Loss 70 Other: # Voids 2 - Exam The patient does not appear in acute distress. Alert and orientated x3. Dressing is clean dry and intact. Incision appears fine with no erythema or active drainage. There is bruising to the superior shoulder and upper arm. Good wrist and hand motion motion without difficulty. Sensation and circulatory status is intact. - Labs Labs: Abnormal Lab Results - Last 24 Hours (Table) 06/28/24 06/28/24 06/29/24 Range/Units 13:36 19:29 06:06 POC Glucose (mg/dL) 118 H 145 H 160 H (70-110) mg/dL Assessment and Plan (1) Status post reverse arthroplasty of left shoulder Current Visit: Yes Status: Acute Code(s): Z96.612 - PRESENCE OF LEFT ARTIFICIAL SHOULDER JOINT SNOMED Code(s): 22722507298302630 (2) Left shoulder pain Current Visit: Yes Status: Acute Code(s): M25.512 - PAIN IN LEFT SHOULDER SNOMED Code(s): 5184694635 (3) History of pulmonary embolism Current Visit: Yes Status: Acute Code(s): Z86.711 - PERSONAL HISTORY OF PULMONARY EMBOLISM SNOMED Code(s): 506237127 (4) Hyperlipidemia Current Visit: Yes Status: Acute Code(s): E78.5 - HYPERLIPIDEMIA, UN SPECIFIED SNOMED Code(s): 18520305 (5) Hypertension Current Visit: Yes Status: Acute Code(s): I10 - ESSENTIAL (PRIMARY) HYPERTENSION SNOMED Code(s): 51652051 (6) DVT (deep venous thrombosis) Current Visit: No Status: Acute Code(s): I82.409 - ACUTE EMBOLISM AND THOMBOS UNSP DEEP VN UNSP LOWER EXTREMITY SNOMED Code(s): 298680861 (7) Diabetes Current Visit: No Status: Acute Code(s): E11.9 - TYPE 2 DIABETES MELLITUS WITHOUT COMPLICATIONS SNOMED Code(s): 43350606 Plan: 1. Continue pain control, start [place] 5 today. 2. Anticoagulation with Eliquis per internal medicine. 3. Continue ambulation and sling 4. Anticipate discharge home either later today or tomorrow depending on pain control and nausea.
[2024-06-29] MEDS: HYDROcodone/APAP 5-325MG 1 EACH TAB PO PRN (10:58)
[2024-06-29 11:28] LABS: Glucose,Whole Blood 177 mg/dL (70-110)
[2024-06-29 16:51] LABS: Glucose,Whole Blood 231 mg/dL (70-110)
--- NOTE | 2024-06-29 16:57 | P.OP ---
Date of Procedure: 06/28/24 Preoperative Diagnosis: Left shoulder glenohumeral osteoarthritis Postoperative Diagnosis: same Procedure(s) Performed: Left reverse total shoulder arthroplasty Implants: [employer] mini baseplate, standard 36mm glenosphere with 25mm central screw Identity humeral stem size 8, 36mm neutral poly Anesthesia: CLAUDIA, regional Surgeon: Gretchen Miller Box Storage Worker #1: Lindsay Puri Estimated Blood Loss (ml): 100 Condition: stable Disposition: PACU Indications for Procedure: The patient has failed conservative management for advanced left glenohumeral arthritis. We have discussed options and have decided to proceed with a reverse total shoulder arthroplasty. Description of Procedure: The patient, operative extremity, and procedure were identified in the preop holding area. After informed consent was obtained, they received a regional block and was brought back to the OR where she was placed under general and placed in the beach chair position. All bony and neurovascular structures were well padded. The upper extremity was then prepped and draped in normal sterile fashion. An oblique incision was then made from the corocoid towards the attachment of the deltoid. Dissection was carried down to the delto pectoral interval and the cephalic vein was identified and mobilized laterally. About 5mm of the pectoralis insertion was released. A daley elevator was swept under the acromion to clear the subdeltoid space. The conjoined tendon was identified and the clavipectoral fascia was released to allow for placement of the jovita retractor. The biceps tendon was located in the groove and released. A tenodesis was performed distal to the bicipital groove with an 0 vicryl. A subscapularis tenotomy was performed in an oblique fashion. The tendon was tagged with 0 vicryl. The humerus was externally rotated until the joint dislocated. The starting drill and serial reamers were inserted just posterior to the bicipital groove. The cutting jig was inserted and utilized to make the humeral head resection. The protector plate was then impacted. The inferior osteophytes were carefully removed from the humeral neck with a rongeur. The capsule was teased away from the subscapularis tendon and removed with bovie cautery. Attention was then turned to the glenoid. The biceps tendon was followed to the labrum which was removed using bovey cautery. The axillary nerve was palpated and protected. The edges of the glenoid were exposed. The aiming guide was used to insert the guide pin in the inferior third of the glenoid. The appropriate reamers were utilized to create the bleeding bone base for the glenoid. The central hole was drilled and the base plate was inserted. A nonlocking screw was inserted in the center with good fixation. The remaining locking screws were inserted. A standard 36mm glenosphere was selected and impacted into place. Attention was then turned back to the humerus. The opening reamers were utilized followed by serial broaches with about 30 degrees of retroversion. A size 8 was found to be a good fit with rotational and axial stability. The planer was then used. The cup and standard poly trial was assembled. Reduction of the trial showed good tension and stability with minimal shuck and good range of motion. The trials were removed and the final implants were inserted. Pulse lavage with normal saline was used to irrigate the construct. The subscapularis was reduced without undue tension and decision was made to repair the tendon. A larks head knot was set to bring the two tendinous edges together. The wound was closed in a layered fashion with 0 vicryl, 3.0 vicryl, 4.0 monocryl, and skin glue. Wound was dressed with a dry dressing. The skilled assistance of the advanced practitioner was necessary through the entirety of the case for retraction and protection of important neurovascular structures.
[2024-06-29 21:25] LABS: Glucose,Whole Blood 140 mg/dL (70-110)
[2024-06-30 03:19] VITALS: RESP 16; TEMP 97.9
[2024-06-30 06:59] LABS: Glucose,Whole Blood 129 mg/dL (70-110)
--- NOTE | 2024-06-30 08:54 | P.DS ---
Providers Expected date of discharge: 06/30/24 Attending physician: Gretchen Miller DO Consults: 06/28/24 14:48 Consult Physician Routine Consulting Provider: Michael Martinez Consult Reason/Comments: medical management Do you want consulting provider notified?: Yes Primary care physician: Michael Martinez - Discharge Diagnosis(es) (1) Status post reverse arthroplasty of left shoulder Current Visit: Yes Status: Acute (2) Left shoulder pain Current Visit: Yes Status: Acute (3) History of pulmonary embolism Current Visit: Yes Status: Acute (4) Hyperlipidemia Current Visit: Yes Status: Acute (5) Hypertension Current Visit: Yes Status: Acute (6) DVT (deep venous thrombosis) Current Visit: No Status: Acute (7) Diabetes Current Visit: No Status: Acute Hospital Course: This is a 83-year-old female who has history of 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 After discussion and consideration the patient elects to proceed with reverse total shoulder arthroplasty. The pt is seen preoperatively by their family physician/cardiology and cleared for surgery. The patient is admitted to [facility] on 06/28/2024 for left reverse total shoulder arthroplasty. She is doing well postoperatively. Vital signs and hemoglobin are stable. The patient is able to get up out of bed independently and is ambulating without assistance. Pain is well controlled. Patient is discharged to home on postoperative day #2 in good condition. Please see med rec for accurate list of home medications. Pertinent Studies: Laboratory Tests 06/30/24 06:58 POC Glucose (mg/dL) 129 H Patient Condition at Discharge: Stable Plan - Discharge Summary Discharge Rx Participant: No New Discharge Prescriptions: New HYDROcodone/APAP 5-325MG [[place] 5] 1 - 2 each PO Q4HR PRN #20 tab PRN Reason: Pain Sennosides-Docusate Sodium [Senokot-S] 2 tab PO DAILY #30 tablet No Action Levothyroxine Sodium [Synthroid] 112 mcg PO DAILY Montelukast [Singulair] 10 mg PO HS Albuterol Sulfate [Albuterol Sulfate Hfa] 2 puff PO RT-QID PRN PRN Reason: Shortness Of Breath Losartan [Cozaar] 12.5 mg PO HS Rosuvastatin [Crestor] 10 mg PO HS Tirzepatide [Mounjaro] 7.5 mg SQ TH Metoprolol Succinate [Metoprolol Succinate ER] 12.5 mg PO DAILY hydroCHLOROthiazide 25 mg PO DAILY Spironolactone [Aldactone] 25 mg PO DAILY Budesonide-Formot 160-4.5 Mcg [Symbicort 160-4.5 Mcg Inhaler] 2 puff INHALATION BID Apixaban [Eliquis] 5 mg PO BID Acetaminophen [Tylenol] 325 mg PO DIRECTED PRN PRN Reason: Pain Discharge Medication List Levothyroxine Sodium [Synthroid] 112 mcg PO DAILY 03/13/16 [History] Montelukast [Singulair] 10 mg PO HS 03/13/16 [History] Albuterol Sulfate [Albuterol Sulfate Hfa] 2 puff PO RT-QID PRN 08/26/23 [History] Losartan [Cozaar] 12.5 mg PO HS 08/26/23 [History] Rosuvastatin [Crestor] 10 mg PO HS 08/26/23 [History] Tirzepatide [Mounjaro] 7.5 mg SQ TH 08/26/23 [History] Metoprolol Succinate [Metoprolol Succinate ER] 12.5 mg PO DAILY 05/05/24 [History] Acetaminophen [Tylenol] 325 mg PO DIRECTED PRN 06/21/24 [History] Apixaban [Eliquis] 5 mg PO BID 06/21/24 [History] Budesonide-Formot 160-4.5 Mcg [Symbicort 160-4.5 Mcg Inhaler] 2 puff INHALATION BID 06/21/24 [History] Spironolactone [Aldactone] 25 mg PO DAILY 06/21/24 [History] hydroCHLOROthiazide 25 mg PO DAILY 06/21/24 [History] HYDROcodone/APAP 5-325MG [[place] 5] 1 - 2 each PO Q4HR PRN #20 tab 06/29/24 [Rx] Sennosides-Docusate Sodium [Senokot-S] 2 tab PO DAILY #30 tablet 06/29/24 [Rx] Follow up Appointment(s)/Referral(s): Lindsay Puri NPC [Nurse Practitioner] - 07/15/24 1:00 pm Activity/Diet/Wound Care/Special Instructions: Keep dressing in place for 7 days. May shower over dressing. Keep arm in sling except when bathing and perform gentle elbow, wrist, and hand range of motion twice a day. Ice to shoulder May take over the counter stool softeners as needed for constipation due to pain medication. Follow-up as scheduled on 07/15/24 with [facility]. Call [facility] with any questions or concerns, Discharge Disposition: HOME SELF-CARE
--- NOTE | 2024-06-30 08:56 | P.PN ---
Subjective Progress Note Date: 06/30/24 Principal diagnosis: Left shoulder arthropathy The patient is an 83-year-old white female essentially admitted for arthropathy. She was kept overnight secondary to nausea and side effects from anesthesia. She is now doing well tolerating diet. Objective - Vital Signs Vital signs: Vital Signs Temp 97.9 F 06/30/24 02:00 Pulse 86 06/30/24 02:00 Resp 16 06/30/24 02:00 BP 109/63 06/30/24 02:00 Pulse Ox 94 L 06/30/24 02:00 FiO2 Intake & Output 06/29/24 06/30/24 06/30/24 18:59 06:59 18:59 Other: Voiding Method Toilet # Voids 5 1 - Constitutional General appearance: Present: cooperative, no acute distress - EENT Eyes: Absent: abnormal pupil - Neck Neck: Absent: lymphadenopathy - Respiratory Respiratory: bilateral: diminished - Cardiovascular Rhythm: regular Heart sounds: normal: S1, S2 Abnormal Heart Sounds: Absent: S3 Gallop - Gastrointestinal General gastrointestinal: Present: soft. Absent: tenderness - Labs Labs: Abnormal Lab Results - Last 24 Hours (Table) 06/29/24 06/29/24 06/29/24 Range/Units 11:27 16:50 21:24 POC Glucose (mg/dL) 177 H 231 H 140 H (70-110) mg/dL 06/30/24 Range/Units 06:58 POC Glucose (mg/dL) 129 H (70-110) mg/dL Assessment and Plan (1) History of atrial fibrillation Current Visit: Yes Status: Acute Code(s): Z86.79 - PERSONAL HISTORY OF OTHER DISEASES OF THE CIRCULATORY SYSTEM SNOMED Code(s): 805016602 (2) History of pulmonary embolism Current Visit: Yes Status: Acute Code(s): Z86.711 - PERSONAL HISTORY OF PULMONARY EMBOLISM SNOMED Code(s): 892188007 (3) Hyperlipidemia Current Visit: Yes Status: Acute Code(s): E78.5 - HYPERLIPIDEMIA, UNSPECIFIED SNOMED Code(s): 66784592 (4) Hypertension Current Visit: Yes Status: Acute Code(s): I10 - ESSENTIAL (PRIMARY) HYPERTENSION SNOMED Code(s): 58739520 (5) Hypothyroid Current Visit: Yes Status: Acute Code(s): E03.9 - HYPOTHYROIDISM, UNSPECIFIED SNOMED Code(s): 11173194 (6) Shoulder arthritis Current Visit: Yes Status: Acute Code(s): M19.019 - PRIMARY OSTEOARTHRITIS, UNSPECIFIED SHOULDER SNOMED Code(s): 4747774443 Plan: Anticipate discharge today with appropriate pain control. Will continue to follow as an outpatient as well. See orders otherwise
[2024-06-30 08:58] VITALS: BP 104/64; PULSE 74
[2024-07-01] MEDS ORDERED: NON FORMULARY DRUG (Tirzepatide [Mounjaro] 7.5 MG/0.5 ML Pen.Injctr) SQ SCH (09:00)
== END 2024-06-30 10:26 | disposition home or self-care (01) ==
LOC: OR 12:23 → 4SSUR 17:46 → OR 06-30 10:26
PROVIDERS: ATTEND Orthopaedic Surgery Hand Surgery
DX: M19.012 Primary osteoarthritis, left shoulder (principal); I10 Essential (primary) hypertension; E03.9 Hypothyroidism, unspecified; E11.9 Type 2 diabetes mellitus without complications; J45.909 Unspecified asthma, uncomplicated; I48.91 Unspecified atrial fibrillation; E78.5 Hyperlipidemia, unspecified; G47.30 Sleep apnea, unspecified; Z79.899 Other long term (current) drug therapy; Z79.01 Long term (current) use of anticoagulants; Z79.890 Hormone replacement therapy; Z79.51 Long term (current) use of inhaled steroids; Z88.5 Allergy status to narcotic agent; Z88.0 Allergy status to penicillin; Z88.8 Allergy status to other drugs, medicaments and biological substances; Z91.09 Other allergy status, other than to drugs and biological substances; Z86.711 Personal history of pulmonary embolism; Z80.3 Family history of malignant neoplasm of breast; Z80.0 Family history of malignant neoplasm of digestive organs
CPT/HCPCS: 94640; 64415; 73020; 23472; C1776; J2250; J0330; J1100 ×2; J2710; J0690 ×3; J2405 ×2; J2003; J3010; J2795; J2704; J1171 ×2; J2371; J1596

== ENCOUNTER → 2025-01-05 | Outpatient (CLI) | payer MEDICARE ==
[2025-01-05 13:04] VITALS: BP 116/76; PULSE 84; RESP 16; TEMP 97.6
--- NOTE | 2025-01-17 14:33 | P.PROGSL ---
Subjective DATE: 01/05/2025 FOLLOW UP VISIT. Patient with obstructive sleep apnea hypopnea syndrome return to sleep center for follow-up visit. Information from previous visit have been reviewed. Patient is using PAP equipment every night for the whole night, getting PAP supplies in time. The patient does not have significant problems with the mask, PAP unit and humidification. [place] sleepiness scale is[]. I checked information from PAP unit. PAP unit pressure 5-10, average 9.9 cm H2O. Usage is 100% for more then 4 hours, average 5.4 hours per night. Leak is increased to 35 l/m. Apnea Hypopnea Index is 1.3, which is normal. MEDICATIONS have been reviewed, please see below. During physical exam: GENERAL: A pleasant patient without any distress. VITAL SIGNS: Please see below, weight is 169 lbs. HEENT: PERRLA, EOMI.low position of soft palate, Mallapati 4 . NECK: Supple. No JVD. LUNGS: Clear to percussion and to auscultation. Good air exchange. No wheezing or rhonchi. HEART: S1, S2 regular. ABDOMEN: Soft and nontender.[] EXTREMITIES: No clubbing or cyanosis. DRESS CAP MAKER: Awake, alert, and oriented x3. No focal deficit. Impressions: 1. Obstructive sleep apnea-hypopnea syndrome. Patient demonstrated great compliance with treatment, benefiting from treatment. 2. Obesity, BMI 33 pounds, patient lost 8 pounds comparing with previous visit. 3. History of atrial fibrillation. 4. Hypothyroidism. 5. Asthma. 6. History of DVT. 7. Status post bilateral pulmonary embolism. 8. Nasal septum deviation. Plan: 1. Continue using PAP equipment every night for the whole night. 2. Sleep hygiene with regular time in bed for at least 7.5-8 hours 3. PAP unit should stay lower then position of the head. 4. Advised patient to remove all remaining water from humidifier canister daily and make it dry after each usage. Refill canister with fresh distilled water before each usage. 5. Watching and continue losing weight. 6. Precautions related to driving. No driving if feel any sleepiness. 7. I will maintain prescription for PAP supplies including mask, tube, filters. 8. Follow up visit in 8 months or earlier if patient has any problems. Thank you very much for allowing me to participate in the management of your patient. Germain Wasserman MD, PhD, FAASM. Diplomat of [place] [employer], Sleep Medicine Board by [place] [employer] Senior [employer] of [facility] [place] Objective - Vital Signs Vital Signs: Vital Signs Temp 97.6 F 01/05/25 10:42 Pulse 84 01/05/25 10:42 Resp 16 01/05/25 10:42 BP 116/76 01/05/25 10:42 Pulse Ox 94 L 01/05/25 10:42 FiO2 Intake & Output 01/04/25 01/05/25 01/05/25 18:59 06:59 18:59 Weight 76.657 kg Home Medications: Home Medications Medication Instructions Recorded Confirmed Type Levothyroxine Sodium [Synthroid] 112 mcg PO DAILY 03/13/16 01/05/25 History Montelukast [Singulair] 10 mg PO HS 03/13/16 01/05/25 History Albuterol Sulfate [Albuterol 2 puff PO RT-QID PRN 08/26/23 01/05/25 History Sulfate Hfa] Losartan [Cozaar] 12.5 mg PO HS 08/26/23 01/05/25 History Rosuvastatin [Crestor] 10 mg PO HS 08/26/23 01/05/25 History Tirzepatide [Mounjaro] 7.5 mg SQ TH 08/26/23 01/05/25 History Metoprolol Succinate [Metoprolol 12.5 mg PO DAILY 05/05/24 01/05/25 History Succinate ER] Acetaminophen [Tylenol] 325 mg PO DIRECTED PRN 06/21/24 01/05/25 History Apixaban [Eliquis] 5 mg PO BID 06/21/24 01/05/25 History Budesonide-Formot 160-4.5 Mcg 2 puff INHALATION BID 06/21/24 01/05/25 History [Symbicort 160-4.5 Mcg Inhaler] Spironolactone [Aldactone] 25 mg PO DAILY 06/21/24 01/05/25 History hydroCHLOROthiazide 25 mg PO DAILY 06/21/24 01/05/25 History HYDROcodone/APAP 5-325MG [[place] 5] 1 - 2 each PO Q4HR PRN #20 tab 06/29/24 Rx Sennosides-Docusate Sodium 2 tab PO DAILY #30 tablet 06/29/24 Rx [Senokot-S]
== END ==
LOC: 3 N SLEEP 10:26
PROVIDERS: ATTEND Internal Medicine
DX: G47.33 Obstructive sleep apnea (adult) (pediatric) (principal); E66.9 Obesity, unspecified; I48.91 Unspecified atrial fibrillation; E03.9 Hypothyroidism, unspecified; J45.909 Unspecified asthma, uncomplicated; J34.2 Deviated nasal septum; Z86.718 Personal history of other venous thrombosis and embolism; Z86.711 Personal history of pulmonary embolism; Z68.33 Body mass index [BMI] 33.0-33.9, adult; Z88.0 Allergy status to penicillin; Z91.048 Other nonmedicinal substance allergy status; Z88.4 Allergy status to anesthetic agent; Z99.89 Dependence on other enabling machines and devices
CPT/HCPCS: 99212

== ENCOUNTER → 2025-02-07 | Outpatient (CLI) | payer MEDICARE ==
--- NOTE | 2025-02-07 13:20 | CT ---
EXAMINATION TYPE: CT dusty shoulder RT wo con DATE OF EXAM: 02/07/2025 COMPARISON: Chest radiograph 07/09/2017 CLINICAL INDICATION: Female, 84 years old with history of M19.011 PRIMARY OSTEOARTHRITIS, RIGHT SHOUL PRESTON; [facility], Pre-surgical planning right shoulder CT DLP: 355.1 mGycm Automated exposure control for dose reduction was used. TECHNIQUE: Axial images were obtained of the right shoulder without the use of IV contrast. Dusty pr otocol. Additional coronal and sagittal reformatted images and soft tissue and bone window were obtai lata for review. 3-D reconstruction was created on a separate workstation. FINDINGS: There is no evidence of fracture, subluxation, or dislocation. Advanced osteoarthritic mercado ges of the right shoulder with joint space narrowing and spurring. There is [id number] contact. Sma ll subchondral cystic changes identified. Large subcoracoid bursa distention. Additionally bicipitora dial bursa distention with calcification. No significant joint effusion is identified. No focal muscu lar atrophy or edema is identified. No radiopaque foreign body identified. Mild to moderate AC joint arthropathy with superior spurring. Multilevel degenerative changes of the visualized cervical and upper thoracic spine. Visualized right lung is clear. IMPRESSION: 1. No acute fracture or dislocation. 2. Advanced osteoarthritic changes of the right shoulder. 3. Bursal distention involving the subcoracoid and bicipitoradial bursa. 4. Mild to moderate AC joint arthropathy. [facility], , 02/07/2025 1:18 PM
== END | disposition home or self-care (01) ==
LOC: RADCTMAIN 11:36
PROVIDERS: ATTEND Orthopaedic Surgery Hand Surgery
DX: Z01.818 Encounter for other preprocedural examination (principal); M19.011 Primary osteoarthritis, right shoulder; M75.51 Bursitis of right shoulder